=== PATIENT | male | born 1960 | race African-American/Black ===

== ENCOUNTER 2018-09-28 12:23 | Emergency (ER) | payer MEDICARE, OTHER ==
[~2018-09-28] VITALS: Ht 180.3 cm; Wt 113.4 kg
[2018-09-28] MEDS ORDERED: methylPREDNISolone SOD SUCC PF 125 MG/2 ML VIAL. IM ONE (13:00)
[2018-09-28 13:02] VITALS: BP 125/86
[2018-09-28] MEDS ORDERED: DICL50TA4 PO (13:39)
--- NOTE | 2018-09-28 13:39 | PHYS DOC ---
Past Medical History Past Medical History: Arthritis, GERD, High Cholesterol Additional Past Medical Histor: GOUT, ALLERGIES, ENLARGED PROSTATE Past Surgical History: Appendectomy Additional Past Surgical Histo: L ANKLE SX Alcohol Use: None Drug Use: None Adult General Chief Complaint Chief Complaint: LOWER EXT PAIN HPI HPI Patient is a 58 year old male with history of arthritis to bilateral knees who presents today complaining of chronic 8 out of 10 intermittent bilateral knee pain. Patient states he is supposed to have knee replacement and would like a referral to an orthopedic doctor. Patient denies any known injury. He states the pain is worse when it rains like today. Patient states he gets injection to his knees. He states they did the left knee injection a couple weeks ago but they could not do both knees. He is requesting steroid injection to the right knee. Review of Systems Review of Systems Constitutional: Denies fever or chills [] Musculoskeletal: Reports chronic bilateral knee pain Integument: Denies rash or skin lesions [] Neurologic: Denies headache, focal weakness or sensory changes [] All other systems were reviewed and found to be within normal limits, except as documented in this note. Current Medications Current Medications Current Medications Medications (Trade) Dose Ordered Sig/Luis Eduardo Start Time Stop Time Status Last Admin Dose Admin Methylprednisolone Sodium Succinate (SOLU-Medrol 125MG VIAL) 125 mg 1X ONCE 09/28/18 13:00 09/28/18 13:17 DC 09/28/18 13:23 125 MG Allergies Allergies Allergies Coded Allergies Type Severity Reaction Last Updated Verified No Known Drug Allergies 09/28/18 No Physical Exam Physical Exam Constitutional: Well developed, well nourished, no acute distress, non-toxic appearance. [] Skin: Warm, dry, no erythema, no rash. [] Back: No tenderness, no CVA tenderness. [] Extremities: Bilateral knees with no obvious deformity. Both knees are in a OTC splint. Full passive range of motion to bilateral knees. +2 bilateral pedal pulses. Sensation intact bilateral lower extremities. Neurologic: Alert and oriented X 3, normal motor function, normal sensory function, no focal deficits noted. [] Psychologic: Affect normal, judgement normal, mood normal. [] Current Patient Data Vital Signs Vital Signs Date Time Temp Pulse Resp B/P (MAP) Pulse Ox O2 Delivery O2 Flow Rate FiO2 09/28/18 13:02 98.4 89 18 125/86 (99) 96 Room Air 98.4 EKG EKG [] Radiology/Procedures Radiology/Procedures [] Course & Med Decision Making Course & Med Decision Making Pertinent Labs and Imaging studies reviewed. (See chart for details) This is a 58-year-old male patient presented to the ED today with bilateral knee pain, no known injury. See history of present illness. Patient was discharged with diclofenac. Ice/ elevation encouraged. Follow-up with primary care doctor in 1-2 weeks or the provided orthopedic doctor. Dragon Disclaimer Dragon Disclaimer This electronic medical record was generated, in whole or in part, using a voice recognition dictation system. Departure Departure Impression: Primary Impression: Chronic pain of both knees Disposition: HOME, SELF-CARE Condition: STABLE Referrals: UNKNOWN PCP NAME (PCP) FABIENNE CLEVELAND II, MD follow up in 1-2 weeks Patient Instructions: Knee Pain, [id number] Additional Instructions: You were seen for chronic knee pain. Please follow-up with the orthopedic doctor provided in 1-2 weeks. Scripts Diclofenac Sodium (DICLOFENAC SODIUM) 50 Mg Tablet.dr 1 TAB PO BID, #20 TAB 0 Refills Prov: LEANNA STEVENS APRN 09/28/18 LEANNA STEVENS APRN Sep 28, 2018 13:39
[2018-11-04] MEDS ORDERED: MELO15TA6 PO (14:27)
[2018-11-04] MEDS ORDERED: DICL100G18 TP (14:27)
== END 2018-09-28 14:00 | disposition home or self-care (01) ==
LOC: ER 12:23
DX: G89.29 Other chronic pain (principal); M25.561 Pain in right knee; M25.562 Pain in left knee; M17.0 Bilateral primary osteoarthritis of knee; K21.9 Gastro-esophageal reflux disease without esophagitis; E78.00 Pure hypercholesterolemia, unspecified; M10.9 Gout, unspecified
CPT/HCPCS: 96372; 99283; J2930

== ENCOUNTER 2018-11-03 09:44 | Inpatient (IN) | payer OTHER ==
[~2018-11-03] VITALS: Ht 180.3 cm; Wt 104.4 kg
[2018-11-03] VITALS (13 sets, daily range): BP systolic 101–125; BP diastolic 69–82
[~2018-11-03 09:44] MED LIST: DICL50TA4 PO
[2018-11-03] MEDS ORDERED: IV NORMAL SALINE 1000ML BAG 1,000 ML IV SCH (09:49)
--- NOTE | 2018-11-03 09:56 | PHYS DOC ---
Past Medical History Past Medical History: Arthritis, GERD, High Cholesterol Additional Past Medical Histor: GOUT, ALLERGIES, ENLARGED PROSTATE Past Surgical History: Appendectomy Additional Past Surgical Histo: L ANKLE SX Alcohol Use: None Drug Use: None Adult General Chief Complaint Chief Complaint: chest pain HPI HPI Patient is a 58-year-old male who presents with complaint of chest pain that started about 5:00 this morning. Patient states that it woke him from sleep. He describes pain as sharp and stabbing in nature and states the pain is worsened with movements and with deep breathing. He also admits to a cough but states cough is not been productive. Patient denies any history of blood clots. He does indicate that he has noticed some swelling in his legs however. Patient denies any nausea, vomiting or diaphoresis. He states that nothing improves the pain. He rates pain currently at an 8 out of 10. Review of Systems Review of Systems Constitutional: Denies fever or chills [] Respiratory: Complains of cough without shortness of breath [] Cardiovascular: No additional information not addressed in HPI [] GI: Denies abdominal pain, nausea, vomiting or diarrhea [] Integument: Denies rash or skin lesions [] Neurologic: Denies headache, focal weakness or sensory changes [] All other systems were reviewed and found to be within normal limits, except as documented in this note. Current Medications Current Medications Current Medications Medications (Trade) Dose Ordered Sig/Luis Eduardo Start Time Stop Time Status Last Admin Dose Admin Aspirin (Children'S Aspirin) 324 mg 1X ONCE 11/03/18 10:30 11/03/18 10:31 DC 11/03/18 10:33 324 MG Heparin Sodium (Porcine) (Heparin Sodium) 2,600 unit PRN Q6HRS PRN 11/03/18 10:45 Heparin Sodium/ Dextrose 500 ml @ 0 mls/hr CONT PRN 11/03/18 10:45 11/03/18 10:48 25.1 MLS/HR Info (CONTRAST GIVEN -- Rx MONITORING) 1 each PRN DAILY PRN 11/03/18 10:45 11/05/18 10:44 Nitroglycerin (Nitrostat) 0.4 mg PRN Q5MIN PRN 11/03/18 10:45 11/03/18 10:43 0.4 MG Sodium Chloride 1,000 ml @ 1,000 mls/hr Q1H 11/03/18 09:49 11/03/18 10:48 DC 11/03/18 10:10 1,000 MLS/HR Allergies Allergies Allergies Coded Allergies Type Severity Reaction Last Updated Verified No Known Drug Allergies 09/28/18 No Physical Exam Physical Exam Constitutional: Well developed, well nourished, no acute distress, non-toxic appearance. [] HENT: Normocephalic, atraumatic, bilateral external ears normal, oropharynx moist, no oral exudates, nose normal. [] Eyes: PERRLA, EOMI, conjunctiva normal, no discharge. [] Neck: Normal range of motion, no tenderness, supple, no stridor. [] Cardiovascular: Regular rate and rhythm. There is reproducible chest wall tenderness along the left lower sternal margin[] Lungs & Thorax: Bilateral breath sounds clear to auscultation [] Abdomen: Bowel sounds normal, soft, no tenderness. [] Skin: Warm, dry, no erythema, no rash. [] Extremities: No tenderness, no cyanosis, no clubbing, ROM intact, no edema. [] Neurologic: Alert and oriented X 3, no focal deficits noted. [] Current Patient Data Vital Signs Vital Signs Date Time Temp Pulse Resp B/P (MAP) Pulse Ox O2 Delivery O2 Flow Rate FiO2 11/03/18 10:43 89 137/96 11/03/18 09:44 98.3 18 97 Room Air 98.3 Lab Values Laboratory Tests Test 11/03/18 09:51 White Blood Count 3.8 x10^3/uL (4.0-11.0) L Red Blood Count 5.02 x10^6/uL (4.30-5.70) Hemoglobin 16.0 g/dL (13.0-17.5) Hematocrit 48.3 % (39.0-53.0) Mean Corpuscular Volume 96 fL (79-100) Mean Corpuscular Hemoglobin 32 pg (25-35) Mean Corpuscular Hemoglobin Concent 33 g/dL (31-37) Red Cell Distribution Width 14.1 % (11.5-14.5) Platelet Count 163 x10^3/uL (140-400) Neutrophils (%) (Auto) 51 % (31-73) Lymphocytes (%) (Auto) 35 % (24-48) Monocytes (%) (Auto) 11 % (0-9) H Eosinophils (%) (Auto) 2 % (0-3) Basophils (%) (Auto) 1 % (0-3) Neutrophils # (Auto) 1.9 x10^3uL (1.8-7.7) Lymphocytes # (Auto) 1.3 x10^3/uL (1.0-4.8) Monocytes # (Auto) 0.4 x10^3/uL (0.0-1.1) Eosinophils # (Auto) 0.1 x10^3/uL (0.0-0.7) Basophils # (Auto) 0.0 x10^3/uL (0.0-0.2) Sodium Level 140 mmol/L (136-145) Potassium Level 4.0 mmol/L (3.5-5.1) Chloride Level 102 mmol/L (98-107) Carbon Dioxide Level 23 mmol/L (21-32) Anion Gap 15 (6-14) H Blood Urea Nitrogen 6 mg/dL (8-26) L Creatinine 1.1 mg/dL (0.7-1.3) Estimated GFR (Cockcroft-Gault) 82.9 BUN/Creatinine Ratio 5 (6-20) L Glucose Level 86 mg/dL (70-99) Calcium Level 9.7 mg/dL (8.5-10.1) Magnesium Level 2.3 mg/dL (1.8-2.4) Total Bilirubin 1.6 mg/dL (0.2-1.0) H Aspartate Amino Transferase (AST) 105 U/L (15-37) H Alanine Aminotransferase (ALT) 102 U/L (16-63) H Alkaline Phosphatase 113 U/L (46-116) Troponin I Quantitative 0.389 ng/mL (0.000-0.055) IK-Ecu-H-Type Natriuretic Peptide 78 pg/mL (0-124) Total Protein 7.7 g/dL (6.4-8.2) Albumin 4.1 g/dL (3.4-5.0) Albumin/Globulin Ratio 1.1 (1.0-1.7) Lipase 149 U/L (73-393) Ethyl Alcohol Level < 10 mg/dL (0-10) Laboratory Tests 11/03/18 09:51 Laboratory Tests 11/03/18 09:51 EKG EKG [] Interpretation Time: EKG demonstrates normal sinus rhythm with rate of 99. Radiology/Procedures Radiology/Procedures [] Impressions: EXAM: CHEST 1 VIEW History: Chest pain COMPARISON: 04/13/2010 FINDINGS: The cardiac silhouette is unremarkable. The lungs are clear bilaterally. The costophrenic sulci are clear and well demarcated. IMPRESSION: No radiographic evidence of an acute cardiopulmonary process. Electronically signed by: David Ron MD (11/03/2018 10:10 AM) [id number] Course & Med Decision Making Course & Med Decision Making Pertinent Labs and Imaging studies reviewed. (See chart for details) [] Dragon Disclaimer Dragon Disclaimer This electronic medical record was generated, in whole or in part, using a voice recognition dictation system. Departure Departure Impression: Primary Impression: NSTEMI (non-ST elevated myocardial infarction) Disposition: 09 ADMITTED INPATIENT Admitting Physician: Other (Dr. [place]) Condition: IMPROVED Referrals: UNKNOWN PCP NAME (PCP) RENA SILVA Jr. DO November 03, 2018 09:56
[2018-11-03 10:02] LABS: BASO % 1 % (0-3); EOS # 0.1 x10^3/uL (0.0-0.7); EOS % 2 % (0-3); HEMATOCRIT 48.3 % (39.0-53.0); LYMPH # 1.3 x10^3/uL (1.0-4.8); LYMPH % 35 % (24-48); MEAN CORPUSCULAR HEMOGLOBIN 32 pg (25-35); MEAN CORPUSCULAR HGB CONC 33 g/dL (31-37); MEAN CORPUSCULAR VOLUME 96 fL (79-100); MONO # 0.4 x10^3/uL (0.0-1.1); MONO % 11 % (0-9); NEUT # 1.9 x10^3uL (1.8-7.7); NEUT % 51 % (31-73); PLATELET COUNT 163 x10^3/uL (140-400); RED BLOOD COUNT 5.02 x10^6/uL (4.30-5.70); RED CELL DISTRIBUTION WIDTH 14.1 % (11.5-14.5); WHITE BLOOD COUNT 3.8 x10^3/uL (4.0-11.0)
--- NOTE | 2018-11-03 10:13 | RAD ---
EXAM: CHEST 1 VIEW History: Chest pain COMPARISON: 04/13/2010 FINDINGS: The cardiac silhouette is unremarkable. The lungs are clear bilaterally. The costophrenic sulci are clear and well demarcated. IMPRESSION: No radiographic evidence of an acute cardiopulmonary process. Electronically signed by: David Ron MD (11/03/2018 10:10 AM) [id number]
[2018-11-03 10:14] LABS: CALCIUM 9.7 mg/dL (8.5-10.1); CREATININE 1.1 mg/dL (0.7-1.3); GFR 82.9
--- NOTE | 2018-11-03 10:21 | EKG ---
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
[2018-11-03 10:25] LABS: ALBUMIN 4.1 g/dL (3.4-5.0); ALBUMIN/GLOBULIN RATIO 1.1 (1.0-1.7); MAGNESIUM 2.3 mg/dL (1.8-2.4); TOTAL BILIRUBIN 1.6 mg/dL (0.2-1.0); TOTAL PROTEIN 7.7 g/dL (6.4-8.2)
[2018-11-03] MEDS ORDERED: ASPIRIN CHEWABLE 81 MG TABLET. PO ONE (10:30)
[2018-11-03] MEDS: NITROGLYCERIN SUBLINGUAL 0.4 MG BOTTLE OF 25. SL PRN ×2 (10:43→11:01)
[2018-11-03] MEDS ORDERED: HEPARIN 25,000UTS/500ML PREMIX 500 ML IV PRN (10:45)
[2018-11-03] MEDS ORDERED: CONTRAST GIVEN. MC PRN ×2 (10:45→12:30)
[2018-11-03] MEDS ORDERED: HEPARIN for IV BOLUS 10,000 UNIT/10 ML VIAL. IV ONE (10:45)
[2018-11-03] MEDS ORDERED: HEPARIN for IV BOLUS 10,000 UNIT/10 ML VIAL. IV PRN (10:45)
[2018-11-03] MEDS ORDERED: ANTI-COAG MONITOR BY PHARMACY. MC PRN (11:00)
[2018-11-03] MEDS ORDERED: NITROGLYCERIN SUBLINGUAL 0.4 MG BOTTLE OF 25. SL PRN (11:00)
[2018-11-03] MEDS ORDERED: ONDANSETRON PF 4 MG/2 ML VIAL. IV ONE (11:00)
[2018-11-03] MEDS ORDERED: ONDANSETRON PF 4 MG/2 ML VIAL. IV PRN (11:00)
[2018-11-03] MEDS ORDERED: MORPHINE SULFATE 2 MG/ML VIAL. IV PRN (11:00)
--- NOTE | 2018-11-03 11:06 | PDOC2 ---
SHARAN KUHN RADIAL ROUTER OPERATOR 11/03/18 1106: CARDIAC CONSULT DATE OF CONSULT Date of Consult DATE: 11/03/18 TIME: 11:03 REASON FOR CONSULT Reason for Consult: NSTEMI REFERRING PHYSICIAN Referring Physician: Ricky SOURCE Source: Chart review, Patient HISTORY OF PRESENT ILLNESS HISTORY OF PRESENT ILLNESS This is a 58 yo male admitted for complains of chest pain. Reports that he woke this morning having sharp left chest pain radiating to left shoulder. This was associated with SOA and nausea. Currently he is restless and tachypneic and appears to be in panic, nauseated and diaphoretic. He received 2 NTG and his BP dropped to 70/30s IV bolus given and his BP is better and he is less restless. No prior hx of CAD or arrhythmias but + for past CVA, HLP, HTN and heavy alcoholism with last cocaine use 2 weeks ago as verbalized. No prior syncope and limited details due to his anxiety and restlessness. PAST MEDICAL HISTORY Cardiovascular: HTN, Hyperlipidemia CENTRAL NERVOUS SYSTEM: CVA GI: GERD Psych: Other (heavy alcoholism) Musculoskeletal: Osteoarthritis Rheumatologic: Gout Renal/: Benign prostatic enlarg. PAST SURGICAL HISTORY Past Surgical History: Appendectomy, Other (left ankle surgery) FAMILY HISTORY Family History: Family History Unknown SOCIAL HISTORY Smoke: No ALCOHOL: heavy (gin and beer) Drugs: Cocaine Lives: Alone (homeless nursing home) CURRENT MEDICATIONS CURRENT MEDICATIONS Current Medications Medications (Trade) Dose Ordered Sig/Luis Eduardo Route PRN Reason Start Time Stop Time Status Last Admin Dose Admin Sodium Chloride 1,000 ml @ 1,000 mls/hr Q1H IV 11/03/18 09:49 11/03/18 10:48 DC 11/03/18 10:10 Aspirin (Children'S Aspirin) 324 mg 1X ONCE PO 11/03/18 10:30 11/03/18 10:31 DC 11/03/18 10:33 Nitroglycerin (Nitrostat) 0.4 mg PRN Q5MIN PRN SL CHEST PAIN 11/03/18 10:45 11/03/18 11:01 Heparin Sodium (Porcine) (Heparin Sodium) 4,000 unit 1X ONCE IV 11/03/18 10:45 11/03/18 10:46 DC 11/03/18 10:44 Heparin Sodium/ Dextrose 500 ml @ 0 mls/hr CONT PRN IV SEE I/O RECORD 11/03/18 10:45 5/3/19 10:48 Ondansetron HCl (Zofran) 4 mg 1X ONCE IV 11/03/18 11:00 11/03/18 11:01 DC 11/03/18 10:58 ALLERGIES ALLERGIES: Coded Allergies: No Known Drug Allergies (Unverified , 09/28/18) ROS Review of System limited due to restlessness PHYSICAL EXAM General: Alert, Oriented X3, Cooperative, moderate distress HEENT: Atraumatic, Mucous membr. moist/pink Lungs: Clear to auscultation, Other (hyperventilating) Heart: Regular rate (SR), Other (2/6 systolic murmur to LLS border; S4) Abdomen: Soft, No tenderness Extremities: No cyanosis, No edema Skin: No breakdown, No significant lesion Neuro: Normal speech, Sensation intact Psych/Mental Status: Mental status NL, Other (anxious) MUSCULOSKELETAL: Osteoarthritic changes both hands VITALS VITALS Vital Signs Date Time Temp Pulse Resp B/P (MAP) Pulse Ox O2 Delivery O2 Flow Rate FiO2 11/03/18 11:01 94 127/74 11/03/18 10:57 16 97 Room Air 11/03/18 09:44 98.3 98.3 LABS Lab: Laboratory Tests Test 11/03/18 09:51 White Blood Count 3.8 x10^3/uL (4.0-11.0) Red Blood Count 5.02 x10^6/uL (4.30-5.70) Hemoglobin 16.0 g/dL (13.0-17.5) Hematocrit 48.3 % (39.0-53.0) Mean Corpuscular Volume 96 fL (79-100) Mean Corpuscular Hemoglobin 32 pg (25-35) Mean Corpuscular Hemoglobin Concent 33 g/dL (31-37) Red Cell Distribution Width 14.1 % (11.5-14.5) Platelet Count 163 x10^3/uL (140-400) Neutrophils (%) (Auto) 51 % (31-73) Lymphocytes (%) (Auto) 35 % (24-48) Monocytes (%) (Auto) 11 % (0-9) Eosinophils (%) (Auto) 2 % (0-3) Basophils (%) (Auto) 1 % (0-3) Neutrophils # (Auto) 1.9 x10^3uL (1.8-7.7) Lymphocytes # (Auto) 1.3 x10^3/uL (1.0-4.8) Monocytes # (Auto) 0.4 x10^3/uL (0.0-1.1) Eosinophils # (Auto) 0.1 x10^3/uL (0.0-0.7) Basophils # (Auto) 0.0 x10^3/uL (0.0-0.2) Sodium Level 140 mmol/L (136-145) Potassium Level 4.0 mmol/L (3.5-5.1) Chloride Level 102 mmol/L (98-107) Carbon Dioxide Level 23 mmol/L (21-32) Anion Gap 15 (6-14) Blood Urea Nitrogen 6 mg/dL (8-26) Creatinine 1.1 mg/dL (0.7-1.3) Estimated GFR (Cockcroft-Gault) 82.9 BUN/Creatinine Ratio 5 (6-20) Glucose Level 86 mg/dL (70-99) Calcium Level 9.7 mg/dL (8.5-10.1) Magnesium Level 2.3 mg/dL (1.8-2.4) Total Bilirubin 1.6 mg/dL (0.2-1.0) Aspartate Amino Transf (AST/SGOT) 105 U/L (15-37) Alanine Aminotransferase (ALT/SGPT) 102 U/L (16-63) Alkaline Phosphatase 113 U/L (46-116) Troponin I Quantitative 0.389 ng/mL (0.000-0.055) YA-Dnh-H-Type Natriuretic Peptide 78 pg/mL (0-124) Total Protein 7.7 g/dL (6.4-8.2) Albumin 4.1 g/dL (3.4-5.0) Albumin/Globulin Ratio 1.1 (1.0-1.7) Lipase 149 U/L (73-393) Ethyl Alcohol Level < 10 mg/dL (0-10) ASSESSMENT/PLAN ASSESSMENT/PLAN 1. NSTEMI: Trop at 0.3 with CP. EKG SR with LAFB 2. HLP 3. Hx of CVA 4. Mild transaminitis with known heavy alcoholism 5. Hypotension: likely from 2 NTG, BP better after IVF bolus Recommendations 1. Heparin drip, ASA 2. LHC, risks and benefits discussed and agreeable to proceed. 3. TTE, lipids, TSH 4. ETOH withdrawal protocol per PCP GLENYS SAMS MD 11/03/18 1245: CARDIAC CONSULT ASSESSMENT/PLAN ASSESSMENT/PLAN Patient seen and examined. Agree with SENIOR ANIMATOR's assessment and plan. CP with mixed features. Troponin level slightly elevated - most probably demand ischemia but with his risk factors, we will proceed with cardiac cath for definitive evaluation Risks and benefits explained and he is agreeable Monitor for alcohol withdrawal Thank you for your consultation SHARAN KUHN APRN November 03, 2018 11:06 GLENYS SAMS MD November 03, 2018 12:45
--- NOTE | 2018-11-03 11:32 | PDOC1 ---
History and Physical Date of Admission Date of Admission DATE: 11/03/18 TIME: 11:12 Identification/Chief Complaint Chief Complaint Chest pain Source Source: Chart review, Patient History of Present Illness History of Present Illness 58-year-old male w/ PMHx prior CVA, GERD, ETOH abuse who presents with complaint of chest pain that started between 3-4AM this morning. Patient states that it woke him from sleep. He describes pain as sharp and stabbing in nature and states the pain is worsened with movements and with deep breathing. He also admits to a cough but states cough is not been productive. Patient denies any hi story of blood clots, but does endorse swelling in his legs however. Patient denies any nausea, vomiting or diaphoresis. He states that nothing improves the pain. He rates pain currently at an 8 out of 10. Given ASA and NTG in ED. AST 105, ALT 102, Bili 1.6. Troponin 0.3. CXR clear. EKG with NSR and LAFB. On further review notes he has had CP and nausea off and on for the past 2 w eeks, but it became severe last night. He vomits during my examination and notes he does have a history of drinking and prior CVA, when asked about further medical history he advises me to "call [facility]", notes he had CVA there 5-6 years ago. Past Medical History Cardiovascular: HTN Pulmonary: No pertinent hx GI: GERD Hepatobiliary: No pertinent hx Psych: No pertinent hx Rheumatologic: No pertinent hx Infectious disease: No pertinent hx ENT: No pertinent hx Renal/: No pertinent hx Endocrine: No pertinent hx Dermatology: No pertinent hx Past Surgical History Past Surgical History: No pertinent history Family History Family History: Alcohol Abuse, Heart Disease, High Cholestrol Social History Smoke: <1 pack per day ALCOHOL: heavy Drugs: None Current Problem List Problem List Problems Medical Problems: (1) NSTEMI (non-ST elevated myocardial infarction) Status: Acute Current Medications Current Medications Current Medications Sodium Chloride 1,000 ml @ 1,000 mls/hr Q1H IV Last administered on 11/03/18at 10:10; Start 11/03/18 at 09:49; Stop 11/03/18 at 10:48; Status DC Aspirin (Children'S Aspirin) 324 mg 1X ONCE PO Last administered on 11/03/18at 10:33; Start 11/03/18 at 10:30; Stop 11/03/18 at 10:31; Status DC Nitroglycerin (Nitrostat) 0.4 mg PRN Q5MIN PRN SL CHEST PAIN Last administered on 11/03/18at 11:01; Start 11/03/18 at 10:45 Heparin Sodium (Porcine) (Heparin Sodium) 4,000 unit 1X ONCE IV Last administered on 11/03/18at 10:44; Start 11/03/18 at 10:45; Stop 11/03/18 at 10:46; Status DC Heparin Sodium/ Dextrose 500 ml @ 0 mls/hr CONT PRN IV SEE I/O RECORD Last administered on 11/03/18at 10:48; Start 11/03/18 at 10:45 Heparin Sodium (Porcine) (Heparin Sodium) 2,600 unit PRN Q6HRS PRN IV FOR UFH LEVEL LESS THAN 0.2; Start 11/03/18 at 10:45 Info (CONTRAST GIVEN -- Rx MONITORING) 1 each PRN DAILY PRN MC SEE COMMENTS; Start 11/03/18 at 10:45; Stop 11/05/18 at 10:44 Ondansetron HCl (Zofran) 4 mg PRN Q8HRS PRN IV NAUSEA/VOMITING; Start 11/03/18 at 11:00; Stop 11/04/18 at 10:59 Morphine Sulfate (Morphine Sulfate) 2 mg PRN Q2HR PRN IV PAIN; Start 11/03/18 at 11:00; Stop 11/04/18 at 10:59 Sodium Chloride 1,000 ml @ 100 mls/hr Q10H IV ; Start 11/03/18 at 11:00; Stop 11/04/18 at 10:59 Nitroglycerin (Nitrostat) 0.4 mg PRN Q5MIN PRN SL CHEST PAIN; Start 11/03/18 at 11:00; Stop 11/04/18 at 10:59; Status UNV Info (Anti-Coagulation Monitoring By Pharmacy) 1 each PRN DAILY PRN MC SEE COMMENTS; Start 11/03/18 at 11:00 Ondansetron HCl (Zofran) 4 mg 1X ONCE IV Last administered on 11/03/18at 10:58; Start 11/03/18 at 11:00; Stop 11/03/18 at 11:01; Status DC Active Scripts Active Diclofenac Sodium 50 Mg Tablet. 1 Tab PO BID Allergies Allergies: Coded Allergies: No Known Drug Allergies (Unverified , 09/28/18) ROS General: YES: Fatigue, Malaise, Appetite; No: Chills, Night Sweats, Other PSYCHOLOGICAL ROS: YES: Anxiety; No: Behavioral Disorder, Concentration difficultie, Decreased libido, Depression, Disorientation, Hallucinations, Hostility, Irritablity, Memory difficulties, Mood Swings, Obsessive thoughts, Physical abuse, Sexual abuse, Sleep disturbances, Suicidal ideation, Other Eyes: No Blurry vision, No Decreased vision, No Double vision, No Dry eyes, No Excessive tearing, No Eye Pain, No Itchy Eyes, No Loss of vision, No Photophobia, No Scotomata, No Uses contacts, No Uses glasses, No Other HEENT: No: Heacaches, Visual Changes, Hearing change, Nasal congestion, Nasal discharge, Oral lesions, Sinus pain, Sore Throat, Epistaxis, Sneezing, Snoring, Tinnitus, Vertigo, Vocal changes, Other ALLERGY AND IMMUNOLOGY: No: Hives, Insect Bite Sensitivity, Itchy/Watery Eyes, Nasal Congestion, Post Nasal Drip, Seasonal Allergies, Other Hematological and Lymphatic: No: Bleeding Problems, Blood Clots, Blood Transfusions, Brusing, Night Sweats, Pallor, Swollen Lymph Nodes, Other ENDOCRINE: No: Breast Changes, Galactorrhea, Hair Pattern Changes, Hot Flashes, Malaise/lethargy, Mood Swings, Palpitations, Polydipsia/polyuria, Skin Changes, Temperature Intolerance, Unexpected Weight Changes, Other Breast: No New/Changing Breast Lumps, No Nipple changes, No Nipple discharge, No Other Respiratory: YES: Cough, Shortness of breath; No: Hemoptysis, Orthopnea, Pleuritic Pain, SOB with excertion, Sputum Changes, Stridor, Tachypnea, Wheezing, Other Cardiovascular: yes Chest Pain; No Palpitations, No Orthopnea, No Paroxysmal Noc. Dyspnea, No Edema, No Lt Headedness, No Other Gastrointestinal: Yes Nausea, Yes Vomiting; No Abdominal Pain, No Diarrhea, No Constipation, No Melena, No Hematochezia, No Other Genitourinary: No Dysuria, No Frequency, No Incontinence, No Hematuria, No Retention, No Discharge, No Urgency, No Pain, No Flank Pain, No Other, No , No , No , No , No , No , No Musculoskeletal: No Gait Disturbance, No Joint Pain, No Joint Stiffness, No Joint Swelling, No Muscle Pain, No Muscular Weakness, No Pain In:, No Swelling In:, No Other Neurological: No Behavorial Changes, No Bowel/Bladder ControlChng, No Confusion, No Dizziness, No Gait Disturbance, No Headaches, No Impaired Coord/balance, No Memory Loss, No Numbness/Tingling, No Seizures, No Speech Problems, No Tremors, No Visual Changes, No Weakness, No Other Skin: No Dry Skin, No Eczema, No Hair Changes, No Lumps, No Mole Changes, No Mottling, No Nail Changes, No Pruritus, No Rash, No Skin Lesion Changes, No Other, No Acne Physical Exam General: Alert, Oriented X3, Cooperative, No acute distress HEENT: Atraumatic, PERRLA, EOMI, Mucous membr. moist/pink Lungs: Clear to auscultation, Normal air movement Heart: S1S2, RRR Abdomen: Normal bowel sounds, Soft, No tenderness, No hepatosplenomegaly, No masses Rectal Exam: not examined Extremities: No clubbing, No cyanosis, No edema, Normal pulses, No ten derness/swelling Skin: No rashes, No breakdown, No significant lesion Neuro: Normal gait, Normal speech, Strength at 5/5 X4 ext, Normal tone, Sensation intact, Cranial nerves 3-12 NL, Reflexes 2+ Psych/Mental Status: Mental status NL, Mood NL Vitals Vitals Vital Signs Date Time Temp Pulse Resp B/P (MAP) Pulse Ox O2 Delivery O2 Flow Rate FiO2 11/03/18 11:07 99 16 70/40 (50) 97 Room Air 11/03/18 09:44 98.3 98.3 Labs Labs Laboratory Tests Test 11/03/18 09:51 White Blood Count 3.8 x10^3/uL (4.0-11.0) Red Blood Count 5.02 x10^6/uL (4.30-5.70) Hemoglobin 16.0 g/dL (13.0-17.5) Hematocrit 48.3 % (39.0-53.0) Mean Corpuscular Volume 96 fL (79-100) Mean Corpuscular Hemoglobin 32 pg (25-35) Mean Corpuscular Hemoglobin Concent 33 g/dL (31-37) Red Cell Distribution Width 14.1 % (11.5-14.5) Platelet Count 163 x10^3/uL (140-400) Neutrophils (%) (Auto) 51 % (31-73) Lymphocytes (%) (Auto) 35 % (24-48) Monocytes (%) (Auto) 11 % (0-9) Eosinophils (%) (Auto) 2 % (0-3) Basophils (%) (Auto) 1 % (0-3) Neutrophils # (Auto) 1.9 x10^3uL (1.8-7.7) Lymphocytes # (Auto) 1.3 x10^3/uL (1.0-4.8) Monocytes # (Auto) 0.4 x10^3/uL (0.0-1.1) Eosinophils # (Auto) 0.1 x10^3/uL (0.0-0.7) Basophils # (Auto) 0.0 x10^3/uL (0.0-0.2) Sodium Level 140 mmol/L (136-145) Potassium Level 4.0 mmol/L (3.5-5.1) Chloride Level 102 mmol/L (98-107) Carbon Dioxide Level 23 mmol/L (21-32) Anion Gap 15 (6-14) Blood Urea Nitrogen 6 mg/dL (8-26) Creatinine 1.1 mg/dL (0.7-1.3) Estimated GFR (Cockcroft-Gault) 82.9 BUN/Creatinine Ratio 5 (6-20) Glucose Level 86 mg/dL (70-99) Calcium Level 9.7 mg/dL (8.5-10.1) Magnesium Level 2.3 mg/dL (1.8-2.4) Total Bilirubin 1.6 mg/dL (0.2-1.0) Aspartate Amino Transf (AST/SGOT) 105 U/L (15-37) Alanine Aminotransferase (ALT/SGPT) 102 U/L (16-63) Alkaline Phosphatase 113 U/L (46-116) Troponin I Quantitative 0.389 ng/mL (0.000-0.055) LR-Otx-Q-Type Natriuretic Peptide 78 pg/mL (0-124) Total Protein 7.7 g/dL (6.4-8.2) Albumin 4.1 g/dL (3.4-5.0) Albumin/Globulin Ratio 1.1 (1.0-1.7) Lipase 149 U/L (73-393) Ethyl Alcohol Level < 10 mg/dL (0-10) Laboratory Tests Test 11/03/18 09:51 White Blood Count 3.8 x10^3/uL (4.0-11.0) Red Blood Count 5.02 x10^6/uL (4.30-5.70) Hemoglobin 16.0 g/dL (13.0-17.5) Hematocrit 48.3 % (39.0-53.0) Mean Corpuscular Volume 96 fL (79-100) Mean Corpuscular Hemoglobin 32 pg (25-35) Mean Corpuscular Hemoglobin Concent 33 g/dL (31-37) Red Cell Distribution Width 14.1 % (11.5-14.5) Platelet Count 163 x10^3/uL (140-400) Neutrophils (%) (Auto) 51 % (31-73) Lymphocytes (%) (Auto) 35 % (24-48) Monocytes (%) (Auto) 11 % (0-9) Eosinophils (%) (Auto) 2 % (0-3) Basophils (%) (Auto) 1 % (0-3) Neutrophils # (Auto) 1.9 x10^3uL (1.8-7.7) Lymphocytes # (Auto) 1.3 x10^3/uL (1.0-4.8) Monocytes # (Auto) 0.4 x10^3/uL (0.0-1.1) Eosinophils # (Auto) 0.1 x10^3/uL (0.0-0.7) Basophils # (Auto) 0.0 x10^3/uL (0.0-0.2) Sodium Level 140 mmol/L (136-145) Potassium Level 4.0 mmol/L (3.5-5.1) Chloride Level 102 mmol/L (98-107) Carbon Dioxide Level 23 mmol/L (21-32) Anion Gap 15 (6-14) Blood Urea Nitrogen 6 mg/dL (8-26) Creatinine 1.1 mg/dL (0.7-1.3) Estimated GFR (Cockcroft-Gault) 82.9 BUN/Creatinine Ratio 5 (6-20) Glucose Level 86 mg/dL (70-99) Calcium Level 9.7 mg/dL (8.5-10.1) Magnesium Level 2.3 mg/dL (1.8-2.4) Total Bilirubin 1.6 mg/dL (0.2-1.0) Aspartate Amino Transf (AST/SGOT) 105 U/L (15-37) Alanine Aminotransferase (ALT/SGPT) 102 U/L (16-63) Alkaline Phosphatase 113 U/L (46-116) Troponin I Quantitative 0.389 ng/mL (0.000-0.055) DR-Hus-M-Type Natriuretic Peptide 78 pg/mL (0-124) Total Protein 7.7 g/dL (6.4-8.2) Albumin 4.1 g/dL (3.4-5.0) Albumin/Globulin Ratio 1.1 (1.0-1.7) Lipase 149 U/L (73-393) Ethyl Alcohol Level < 10 mg/dL (0-10) VTE Prophylaxis Ordered VTE Prophylaxis Devices: No VTE Pharmacological Prophylaxi: Yes Assessment/Plan Assessment/Plan A/P: NSTEMI - Trop at 0.3 with Chest pain. EKG sinus with LAFB. Start heparin GTT, ASA, NTG, cardiology consultation. with prior CVA, age he likely needs cardiac catheterization, will defer to cardiology Leukopenia - patient if , can be normal variant Transaminitis - AST and ALT as well as bilirubin elevation, likely ETOH, though his level is 0, he has not drank in the past day. Will monitor trend LE swelling - negative BNP, likely related to low albumin from ETOH use Prior CVA - should be on high intensity statin and ASA. Will order [facility] records GERD - ppi ETOH abuse - will place on CARLI FEN - NPO pending cardiac evaluation PPX - heparin GTT FULL CODE Inpatient CVC for NSTEMI, may be going to rn cardiac cath, needs at least [address] on KATY BAEZ MD November 03, 2018 11:32
[2018-11-03] MEDS ORDERED: IODIXANOL 320 MG/ML 100 ML VIAL. ONE (11:48)
[2018-11-03] MEDS ORDERED: LIDOCAINE 1% PF 2 ML VIAL. ONE (11:48)
[2018-11-03] MEDS: IV NORMAL SALINE 1000ML BAG 1,000 ML IV SCH ×2 (11:51→20:15)
[2018-11-03] MEDS ORDERED: fentaNYL PF VIAL 100 MCG/2 ML VIAL ONE (11:52)
[2018-11-03] MEDS ORDERED: HEPARIN for IV BOLUS 10,000 UNIT/10 ML VIAL. ONE (11:52)
[2018-11-03] MEDS ORDERED: MIDAZOLAM HCL/PF 2 MG/2 ML VIAL. ONE (11:52)
[2018-11-03] MEDS ORDERED: NITROGLYCERIN 200 MCG/2 ML SYRINGE FOR CATH/VASC LAB. ONE (11:53)
[2018-11-03] MEDS ORDERED: VERAPAMIL 5 MG/2 ML VIAL. ONE (11:53)
[2018-11-03] MEDS ORDERED: IV NORMAL SALINE 1000ML BAG 1,000 ML IV ONE (12:00)
[2018-11-03 12:03] LABS: CHOLESTEROL/HDL RATIO 2.1
--- NOTE | 2018-11-03 12:22 | CARD ---
MR#: [id number] Date of Study: 11/03/2018 Ordering Physician: RENA SILVA, Referring Physician: KATY WATTS Tech: Regina Wills, [facility] APPROVED REPORT EXAM: Two-dimensional and M-mode echocardiogram with Doppler and color Doppler. Other Information Quality : Technically LimitedHR: 95bpm Rhythm : NSRTechnically limited study due to pt movement. INDICATION Chest Pain 2D DIMENSIONS RVDd2.9 (2.9-3.5cm)Left Atrium(2D)3.1 (1.6-4.0cm) IVSd1.1 (0.7-1.1cm)Aortic Root(2D)3.3 (2.0-3.7cm) LVDd4.7 (3.9-5.9cm)LVOT Diameter2.1 (1.8-2.4cm) PWd1.0 (0.7-1.1cm)LVDs3.8 (2.5-4.0cm) FS (%) 18.8 %SV39.3 ml Aortic Valve AoV Peak Marcelino.217.4cm/sAoV VTI34.6cm AO Peak GR.18.9mmHgLVOT VTI 21.09cm AO Mean GR.9mmHgAVA (VMAX)2.20cm2 AMY (VTI)2.20cm2 Mitral Valve MV E Sgmwskef57.8cm/sMV E Peak Gr.4mmHg MV DECEL [id number] A Cparmoqv222.4cm/s MV E Mean Gr.2mmHgE/A Ratio0.7 MV A [id number] LEFT VENTRICLE The left ventricle is normal size. There is normal left ventricular wall thickness. The left ventricu lar systolic function is normal and the ejection fraction is within normal range. The ejection fracti on is 55-60%. There is normal LV segmental wall motion. Transmitral Doppler flow pattern is abnormal. RIGHT VENTRICLE The right ventricle is normal size. There is normal right ventricular wall thickness. The right ventr icular systolic function is normal. ATRIA The left atrium size is normal. The right atrium size is normal. The interatrial septum is intact wit h no evidence for an atrial septal defect or patent foramen ovale as noted on 2-D or Doppler imaging. AORTIC VALVE The aortic valve is not well visualized. The aortic valve is at least mildly calcified. Doppler and C olor Flow revealed no significant aortic regurgitation. There is no significant aortic valvular steno sis. MITRAL VALVE The mitral valve is not well visualized. There is no evidence of mitral valve prolapse. There is no m itral valve stenosis. Doppler and Color Flow revealed trace mitral valve regurgitation. TRICUSPID VALVE The tricuspid valve is not well visualized. Doppler and Color Flow revealed no tricuspid valve regurg itation noted. There is no tricuspid valve prolapse or vegetation. There is no tricuspid valve stenos is. PULMONIC VALVE The pulmonic valve is not well visualized. GREAT VESSELS The aortic root is normal in size. The ascending aorta is normal in size. The IVC was not visualized. PERICARDIAL EFFUSION There is no evidence of significant pericardial effusion. Critical Notification Critical Value: No <Conclusion> The left ventricle is normal size. The left ventricular systolic function is normal and the ejection fraction is within normal range. The ejection fraction is 55-60%. There is no significant aortic valvular stenosis. Doppler and Color Flow revealed no significant aortic regurgitation. Doppler and Color Flow revealed trace mitral valve regurgitation. Doppler and Color Flow revealed no tricuspid valve regurgitation noted. Signed by : Sukh Galvin MD Electronically Approved : 11/03/2018 12:22:04
[2018-11-03] MEDS ORDERED: HEPARIN for IV BOLUS 10,000 UNIT/10 ML VIAL. IART ONE (12:30)
[2018-11-03] MEDS ORDERED: LIDOCAINE 1% PF 2 ML VIAL. INJ ONE (12:30)
[2018-11-03] MEDS ORDERED: fentaNYL PF VIAL 100 MCG/2 ML VIAL IV ONE (12:30)
[2018-11-03] MEDS ORDERED: VERAPAMIL 5 MG/2 ML VIAL. IART ONE (12:30)
[2018-11-03] MEDS ORDERED: MIDAZOLAM HCL/PF 2 MG/2 ML VIAL. IV ONE (12:30)
[2018-11-03] MEDS ORDERED: NITROGLYCERIN 200 MCG/2 ML SYRINGE FOR CATH/VASC LAB. IART ONE (12:30)
[2018-11-03] MEDS ORDERED: IODIXANOL 320 MG/ML 100 ML VIAL. IART ONE (12:30)
--- NOTE | 2018-11-03 12:42 | PDOC ---
MODERATE SEDATION ASSESSMENT RISKS/ALTERNATIVES Risks/Alternatives Risks and alternatives of this type of sedation and procedure discussed with: RISK/ALTERNATIVES: Patient H & P ON CHART H & P H & P on chart and reviewed for co-morbid conditions and appropriate labs. H&P ON CHART: Yes STATUS PREG STATUS ASSESSED: N/A MEDS/ALLERGIES REVIEWED Meds/Allergies Reviewed Medications and Allergies including time and route of recently administered narcotics and sedatives. MEDS/ALLERGIES REVIEWED: Yes ASA RATING ASA RATING: II AIRWAY ASSESSMENT Airway Assessment Airway patency, oral function limitations, presence of caps, crowns, dentures, partials, and ability to extend neck assessed. AIRWAY ASSESSMENT: Yes MALLAMPATI SCORE MALLAMPATI SCORE: II PRE-SEDATION ASSESSMENT PRE-SEDATION ASSESSMENT: Yes GLENYS SAMS MD November 03, 2018 12:42
--- NOTE | 2018-11-03 13:10 | CARD ---
MR#: [id number] Date of Study: 11/03/2018 Ordering Physician: SHARAN KUHN, Referring Physician: KATY WATTS, Tech: SHIREEN GOMEZ RTR APPROVED REPORT Technologist: SHIREEN GOMEZ RTR Nurse: Aparna Briggs R.N. Procedure(s) performed: Left heart catheterization, selective coronary angiography and left ventricul ography via right transradial approach Moderate sedation time: 18 mins Fluoro time:2.2 Dose:42.14 GYCM2 Contrast:91 INDICATION The indication(s) include : non-STEMI . CS Clinical Frailty Scale [facility] Clinical Frailty Scale: Mildly Frail Heart Failure Heart Failure: No PROCEDURE NARRATIVE After explaining the risks, benefits and alternative options, informed consent was obtained from ned ent. Patient was brought to the cardiac [facility] and right wrist was prepped and draped in the usual fashion after confirming a positive modified Kashif's test. Arterial access was obtained in the [facility] t radial artery and a 6 Palauan sheath was inserted. 6 Palauan Zackary catheter was used to perform alexandra ective angiography of the left and right coronary arteries. The same catheter was used to perform lef t ventriculography. Patient tolerated the procedure well. Hemostasis was achieved using TR band. T here were no immediate complications. The following findings were noted. FINDINGS 1. Hemodynamics: Left ventricular end-diastolic pressure of 5 mmHg. No pullback gradient across the aortic valve. 2. Left ventriculography: Normal left ventricle systolic function with ejection fraction estimated at 60%. No significant mitral regurgitation seen. 3. Coronary angiography: a. The left main coronary artery arose from the left sinus of Valsalva, gave rise to the left anteri or descending and left circumflex arteries and did not show any significant stenosis. b. The left anterior descending artery did not show any significant stenosis. c. The left circumflex artery did not show any significant stenosis. d. The right coronary artery was a large and dominant vessel arising from the right sinus of Valsalv a that did not show any significant stenosis. Conclusion 1. No significant coronary artery disease 2. Normal left ventricualar systolic function with ejection fraction estimated at 60%. Recommendations Patient's non-STEMI is most probably type 2/demand ischemia Cardiovascular risk factor modification Signed by : Devante Ott, Electronically Approved : 11/03/2018 13:09:48
--- NOTE | 2018-11-03 13:17 | EKG ---
[facility] [address] [place] [address] Test Date: 2018-11-03 Test Time: 11:25:59 Pat Name: JONEL GUAJARDO Department: Room: 208 1 Gender: M Director Database: KRISTIN : 1960 Requested By: KATY WATTS Order Number: [id number] Reading MD: Gus Jean MD Measurements Intervals [place] Rate: 82 P: 43 PA: 164 QRS: -10 QRSD: 94 T: 30 QT: 398 QTc: 468 Interpretive Statements SINUS RHYTHM NON-SPECIFIC ST/T CHANGES CANNOT RULE OUT PRIOR INFERIOR INFARCT Electronically Signed On 11-07-2018 13:56:15 CDT by Gus Jean MD
[2018-11-03] MEDS ORDERED: TAMS0.4C97 PO (14:33)
[2018-11-03] MEDS ORDERED: HALOPERIDOL LACTATE 5 MG/ML VIAL. IVP PRN (14:45)
[2018-11-03] MEDS ORDERED: LORazepam 1 MG TABLET PO PRN (14:45)
[2018-11-03] MEDS ORDERED: cloNIDine HCL 0.1 MG TABLET PO PRN (14:45)
[2018-11-03] MEDS: traMADol 50 MG TABLET PO PRN ×2 (15:07→21:22)
[2018-11-03] MEDS: IV 1/2 NORMAL SALINE 1,000 ML IV SCH (15:08)
[2018-11-03] MEDS: MULTIVIT INFUSN,ADULT 4,VIT K 10 ML, THIAMINE INJ 100 MG, FOLIC ACID INJ 1 MG in IV NOR... IV SCH (15:08)
[2018-11-03] MEDS: PANTOPRAZOLE 40 MG TABLET.DR. PO SCH (15:10)
[2018-11-03] MEDS: DICLOFENAC SODIUM 25 MG TABLET.DR PO SCH (20:17)
[2018-11-03] MEDS ORDERED: TAMSULOSIN 0.4 MG CAP.ER.24H. PO SCH (21:00)
[2018-11-04 02:38] VITALS: BP 119/74
[2018-11-04 04:48] LABS: BASO % 1 % (0-3); EOS # 0.1 x10^3/uL (0.0-0.7); EOS % 3 % (0-3); HEMATOCRIT 38.9 % (39.0-53.0); HEMOGLOBIN 12.7 g/dL (13.0-17.5); LYMPH # 1.4 x10^3/uL (1.0-4.8); LYMPH % 44 % (24-48); MEAN CORPUSCULAR HEMOGLOBIN 32 pg (25-35); MEAN CORPUSCULAR HGB CONC 33 g/dL (31-37); MEAN CORPUSCULAR VOLUME 97 fL (79-100); MONO # 0.4 x10^3/uL (0.0-1.1); MONO % 12 % (0-9); NEUT # 1.3 x10^3uL (1.8-7.7); NEUT % 40 % (31-73); PLATELET COUNT 126 x10^3/uL (140-400); RED BLOOD COUNT 4.01 x10^6/uL (4.30-5.70); RED CELL DISTRIBUTION WIDTH 14.2 % (11.5-14.5); WHITE BLOOD COUNT 3.3 x10^3/uL (4.0-11.0)
[2018-11-04 05:26] LABS: ALBUMIN 2.9 g/dL (3.4-5.0); ALBUMIN/GLOBULIN RATIO 0.9 (1.0-1.7); CALCIUM 8.7 mg/dL (8.5-10.1); CREATININE 1.2 mg/dL (0.7-1.3); POTASSIUM 3.6 mmol/L (3.5-5.1); TOTAL BILIRUBIN 1.1 mg/dL (0.2-1.0)
[2018-11-04] MEDS: traMADol 50 MG TABLET PO PRN (05:35)
[2018-11-04] MEDS: IV 1/2 NORMAL SALINE 1,000 ML IV SCH (05:40)
[2018-11-04] MEDS: IV NORMAL SALINE 1000ML BAG 1,000 ML IV SCH (07:00)
[2018-11-04 07:13] VITALS: BP 135/91
[2018-11-04] MEDS: DICLOFENAC SODIUM 25 MG TABLET.DR PO SCH (08:43)
[2018-11-04] MEDS: PANTOPRAZOLE 40 MG TABLET.DR. PO SCH (08:43)
[2018-11-04 11:25] VITALS: BP 123/72
[2018-11-04] MEDS: MULTIVIT INFUSN,ADULT 4,VIT K 10 ML, THIAMINE INJ 100 MG, FOLIC ACID INJ 1 MG in IV NOR... IV SCH (12:15)
[2018-11-04] MEDS ORDERED: IOHEXOL 350 MG/ML 100 ML VIAL. IV ONE (13:00)
[2018-11-04] MEDS ORDERED: CONTRAST GIVEN. MC PRN (13:15)
--- NOTE | 2018-11-04 13:43 | RAD ---
EXAM: CT angiography of the chest with intravenous contrast. HISTORY: Elevated d-dimer. Chest pain. TECHNIQUE: Computed tomographic images of the chest were obtained following the administration of 100 cc Omnipaque 350 intravenous contrast according to angiography protocol. Multiplanar reformatting was performed and 3-dimensional maximum intensity projection images were obtained. *One or more of the following individualized dose reduction techniques were utilized for this examination: 1. Automated exposure control. 2. Adjustment of the mA and/or kV according to patient size. 3. Use of iterative reconstruction technique. COMPARISON: None. FINDINGS: Evaluation for distal pulmonary emboli is limited due to suboptimal contrast opacification of the distal pulmonary arteries. No convincing embolism is seen. The heart is normal in size. The aorta is normal in caliber. There is coronary artery atherosclerosis. There is calcification of the aortic valve. No pathologically enlarged mediastinal or hilar lymph node is seen. There is no pneumothorax or pleural effusion. There is bilateral posterior dependent and basilar atelectasis. There is no infiltrate or suspicious pulmonary nodule. There is hepatomegaly and hepatic steatosis. There is a 4.0 cm right renal cyst. The remainder of the upper abdomen is grossly unremarkable. There is no suspicious osseous lesion. IMPRESSION: 1. No evidence of pulmonary embolism. Evaluation of the distal pulmonary arteries is slightly limited due to suboptimal contrast opacification. 2. No alternative acute thoracic finding. 3. Hepatomegaly and hepatic steatosis. 4. Right renal cyst. Electronically signed by: Birdie Monroe MD (11/04/2018 1:40 PM) [id number]
[2018-11-04] MEDS ORDERED: MELO15TA6 PO (14:27)
[2018-11-04] MEDS ORDERED: DICL100G18 TP (14:27)
--- NOTE | 2018-11-04 14:29 | PDOC ---
PROGRESS NOTES Chief Complaint Chief Complaint A/P: NSTEMI - Trop at 0.3 with Chest pain. EKG sinus with LAFB. Start heparin GTT, ASA, NTG, cardiology consultation. with prior CVA, age he likely needs cardiac catheterization, will defer to cardiology Leukopenia - patient if , can be normal variant Transaminitis - AST and ALT as well as bilirubin elevation, likely ETOH, though his level is 0, he has not drank in the past day. Will monitor trend LE swelling - negative BNP, likely related to low albumin from ETOH use Prior CVA - should be on high intensity statin and ASA. 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 [address] on CIWA History of Present Illness History of Present Illness 58-year-old male w/ PMHx prior CVA, GERD, ETOH abuse who presents with complaint of chest pain that started between 3-4AM this morning. Patient states that it woke him from sleep. He describes pain as sharp and stabbing in nature and states the pain is worsened with movements and with deep breathing. He also admits to a cough but states cough is not been productive. Patient denies any history of blood clots, but does endorse swelling in his legs however. Patient denies any nausea, vomiting or diaphoresis. He states that nothing improves the pain. He rates pain currently at an 8 out of 10. Given ASA and NTG in ED. AST 105, ALT 102, Bili 1.6. Troponin 0.3. CXR clear. EKG with NSR and LAFB. On further review notes he has had CP and nausea off and on for the past 2 weeks, but it became severe last night. He vomits during my examination and notes he does have a history of drinking and prior CVA, when asked about further medical history he advises me to "call [facility]", notes he had CVA there 5-6 years ago. He went urgently to pipelines laborer: Conclusion 1. No significant coronary artery disease 2. Normal left ventricualar systolic function with ejection fraction estimated at 60%. Recommendations Patient's non-STEMI is most probably type 2/demand ischemia Cardiovascular risk factor modification Had CTPA 11/04/18 showing no PE and revealing hepatomegaly and hepatic steatosis as well as right renal cyst. Vitals Vitals Vital Signs Date Time Temp Pulse Resp B/P (MAP) Pulse Ox O2 Delivery O2 Flow Rate FiO2 11/04/18 11:25 98.2 70 14 123/72 (89) 97 Room Air 98.2 11/03/18 13:05 2.0 Physical Exam General: Alert, Oriented X3, Cooperative, moderate distress Heart: Regular rate (SR), Other (2/6 systolic murmur to LLS border; S4) Abdomen: Soft, No tenderness Extremities: No cyanosis, No edema Skin: No breakdown, No significant lesion Labs LABS Laboratory Tests Test 11/03/18 16:50 11/04/18 04:00 Troponin I Quantitative 0.292 ng/mL (0.000-0.055) White Blood Count 3.3 x10^3/uL (4.0-11.0) Red Blood Count 4.01 x10^6/uL (4.30-5.70) Hemoglobin 12.7 g/dL (13.0-17.5) Hematocrit 38.9 % (39.0-53.0) Mean Corpuscular Volume 97 fL (79-100) Mean Corpuscular Hemoglobin 32 pg (25-35) Mean Corpuscular Hemoglobin Concent 33 g/dL (31-37) Red Cell Distribution Width 14.2 % (11.5-14.5) Platelet Count 126 x10^3/uL (140-400) Neutrophils (%) (Auto) 40 % (31-73) Lymphocytes (%) (Auto) 44 % (24-48) Monocytes (%) (Auto) 12 % (0-9) Eosinophils (%) (Auto) 3 % (0-3) Basophils (%) (Auto) 1 % (0-3) Neutrophils # (Auto) 1.3 x10^3uL (1.8-7.7) Lymphocytes # (Auto) 1.4 x10^3/uL (1.0-4.8) Monocytes # (Auto) 0.4 x10^3/uL (0.0-1.1) Eosinophils # (Auto) 0.1 x10^3/uL (0.0-0.7) Basophils # (Auto) 0.0 x10^3/uL (0.0-0.2) Sodium Level 142 mmol/L (136-145) Potassium Level 3.6 mmol/L (3.5-5.1) Chloride Level 106 mmol/L (98-107) Carbon Dioxide Level 27 mmol/L (21-32) Anion Gap 9 (6-14) Blood Urea Nitrogen 10 mg/dL (8-26) Creatinine 1.2 mg/dL (0.7-1.3) Estimated GFR (Cockcroft-Gault) 75.0 BUN/Creatinine Ratio 8 (6-20) Glucose Level 90 mg/dL (70-99) Calcium Level 8.7 mg/dL (8.5-10.1) Total Bilirubin 1.1 mg/dL (0.2-1.0) Aspartate Amino Transf (AST/SGOT) 53 U/L (15-37) Alanine Aminotransferase (ALT/SGPT) 63 U/L (16-63) Alkaline Phosphatase 86 U/L (46-116) Total Protein 6.0 g/dL (6.4-8.2) Albumin 2.9 g/dL (3.4-5.0) Albumin/Globulin Ratio 0.9 (1.0-1.7) Assessment and Plan Assessmemt and Plan Problems Medical Problems: (1) NSTEMI (non-ST elevated myocardial infarction) Status: Acute Comment Review of Relevant I have reviewed the following items prachi (where applicable) has been applied. Labs Laboratory Tests Test 11/03/18 09:51 11/03/18 13:45 11/03/18 16:50 11/04/18 04:00 White Blood Count 3.8 x10^3/uL (4.0-11.0) 3.3 x10^3/uL (4.0-11.0) Red Blood Count 5.02 x10^6/uL (4.30-5.70) 4.01 x10^6/uL (4.30-5.70) Hemoglobin 16.0 g/dL (13.0-17.5) 12.7 g/dL (13.0-17.5) Hematocrit 48.3 % (39.0-53.0) 38.9 % (39.0-53.0) Mean Corpuscular Volume 96 fL (79-100) 97 fL (79-100) Mean Corpuscular Hemoglobin 32 pg (25-35) 32 pg (25-35) Mean Corpuscular Hemoglobin Concent 33 g/dL (31-37) 33 g/dL (31-37) Red Cell Distribution Width 14.1 % (11.5-14.5) 14.2 % (11.5-14.5) Platelet Count 163 x10^3/uL (140-400) 126 x10^3/uL (140-400) Neutrophils (%) (Auto) 51 % (31-73) 40 % (31-73) Lymphocytes (%) (Auto) 35 % (24-48) 44 % (24-48) Monocytes (%) (Auto) 11 % (0-9) 12 % (0-9) Eosinophils (%) (Auto) 2 % (0-3) 3 % (0-3) Basophils (%) (Auto) 1 % (0-3) 1 % (0-3) Neutrophils # (Auto) 1.9 x10^3uL (1.8-7.7) 1.3 x10^3uL (1.8-7.7) Lymphocytes # (Auto) 1.3 x10^3/uL (1.0-4.8) 1.4 x10^3/uL (1.0-4.8) Monocytes # (Auto) 0.4 x10^3/uL (0.0-1.1) 0.4 x10^3/uL (0.0-1.1) Eosinophils # (Auto) 0.1 x10^3/uL (0.0-0.7) 0.1 x10^3/uL (0.0-0.7) Basophils # (Auto) 0.0 x10^3/uL (0.0-0.2) 0.0 x10^3/uL (0.0-0.2) D-Dimer (Latia) 1.54 ug/mlFEU (0.00-0.50) Sodium Level 140 mmol/L (136-145) 142 mmol/L (136-145) Potassium Level 4.0 mmol/L (3.5-5.1) 3.6 mmol/L (3.5-5.1) Chloride Level 102 mmol/L (98-107) 106 mmol/L (98-107) Carbon Dioxide Level 23 mmol/L (21-32) 27 mmol/L (21-32) Anion Gap 15 (6-14) 9 (6-14) Blood Urea Nitrogen 6 mg/dL (8-26) 10 mg/dL (8-26) Creatinine 1.1 mg/dL (0.7-1.3) 1.2 mg/dL (0.7-1.3) Estimated GFR (Cockcroft-Gault) 82.9 75.0 BUN/Creatinine Ratio 5 (6-20) 8 (6-20) Glucose Level 86 mg/dL (70-99) 90 mg/dL (70-99) Calcium Level 9.7 mg/dL (8.5-10.1) 8.7 mg/dL (8.5-10.1) Magnesium Level 2.3 mg/dL (1.8-2.4) Total Bilirubin 1.6 mg/dL (0.2-1.0) 1.1 mg/dL (0.2-1.0) Aspartate Amino Transf (AST/SGOT) 105 U/L (15-37) 53 U/L (15-37) Alanine Aminotransferase (ALT/SGPT) 102 U/L (16-63) 63 U/L (16-63) Alkaline Phosphatase 113 U/L (46-116) 86 U/L (46-116) Troponin I Quantitative 0.389 ng/mL (0.000-0.055) 0.288 ng/mL (0.000-0.055) 0.292 ng/mL (0.000-0.055) KQ-Qcy-O-Type Natriuretic Peptide 78 pg/mL (0-124) Total Protein 7.7 g/dL (6.4-8.2) 6.0 g/dL (6.4-8.2) Albumin 4.1 g/dL (3.4-5.0) 2.9 g/dL (3.4-5.0) Albumin/Globulin Ratio 1.1 (1.0-1.7) 0.9 (1.0-1.7) Triglycerides Level 59 mg/dL (0-150) Cholesterol Level 277 mg/dL (0-200) LDL Cholesterol, Calculated 130 mg/dL (0-100) VLDL Cholesterol, Calculated 12 mg/dL (0-40) Non-HDL Cholesterol Calculated 142 mg/dL (0-129) HDL Cholesterol 135 mg/dL (40-60) Cholesterol/HDL Ratio 2.1 Lipase 149 U/L (73-393) Thyroid Stimulating Hormone (TSH) 1.306 uIU/mL (0.358-3.74) Ethyl Alcohol Level < 10 mg/dL (0-10) Laboratory Tests Test 11/03/18 16:50 11/04/18 04:00 Troponin I Quantitative 0.292 ng/mL (0.000-0.055) White Blood Count 3.3 x10^3/uL (4.0-11.0) Red Blood Count 4.01 x10^6/uL (4.30-5.70) Hemoglobin 12.7 g/dL (13.0-17.5) Hematocrit 38.9 % (39.0-53.0) Mean Corpuscular Volume 97 fL (79-100) Mean Corpuscular Hemoglobin 32 pg (25-35) Mean Corpuscular Hemoglobin Concent 33 g/dL (31-37) Red Cell Distribution Width 14.2 % (11.5-14.5) Platelet Count 126 x10^3/uL (140-400) Neutrophils (%) (Auto) 40 % (31-73) Lymphocytes (%) (Auto) 44 % (24-48) Monocytes (%) (Auto) 12 % (0-9) Eosinophils (%) (Auto) 3 % (0-3) Basophils (%) (Auto) 1 % (0-3) Neutrophils # (Auto) 1.3 x10^3uL (1.8-7.7) Lymphocytes # (Auto) 1.4 x10^3/uL (1.0-4.8) Monocytes # (Auto) 0.4 x10^3/uL (0.0-1.1) Eosinophils # (Auto) 0.1 x10^3/uL (0.0-0.7) Basophils # (Auto) 0.0 x10^3/uL (0.0-0.2) Sodium Level 142 mmol/L (136-145) Potassium Level 3.6 mmol/L (3.5-5.1) Chloride Level 106 mmol/L (98-107) Carbon Dioxide Level 27 mmol/L (21-32) Anion Gap 9 (6-14) Blood Urea Nitrogen 10 mg/dL (8-26) Creatinine 1.2 mg/dL (0.7-1.3) Estimated GFR (Cockcroft-Gault) 75.0 BUN/Creatinine Ratio 8 (6-20) Glucose Level 90 mg/dL (70-99) Calcium Level 8.7 mg/dL (8.5-10.1) Total Bilirubin 1.1 mg/dL (0.2-1.0) Aspartate Amino Transf (AST/SGOT) 53 U/L (15-37) Alanine Aminotransferase (ALT/SGPT) 63 U/L (16-63) Alkaline Phosphatase 86 U/L (46-116) Total Protein 6.0 g/dL (6.4-8.2) Albumin 2.9 g/dL (3.4-5.0) Albumin/Globulin Ratio 0.9 (1.0-1.7) Medications Current Medications Sodium Chloride 1,000 ml @ 1,000 mls/hr Q1H IV Last administered on 11/03/18 10:10; Start 11/03/18 at 09:49; Stop 11/03/18 at 10:48; Status DC Aspirin (Children'S Aspirin) 324 mg 1X ONCE PO Last administered on 11/03/18 10:33; Start 11/03/18 at 10:30; Stop 11/03/18 at 10:31; Status DC Nitroglycerin (Nitrostat) 0.4 mg PRN Q5MIN PRN SL CHEST PAIN Last administered on 11/03/18at 11:01; Start 11/03/18 at 10:45 Heparin Sodium (Porcine) (Heparin Sodium) 4,000 unit 1X ONCE IV Last administered on 11/03/18at 10:44; Start 11/03/18 at 10:45; Stop 11/03/18 at 12:37; Status DC Heparin Sodium/ Dextrose 500 ml @ 0 mls/hr CONT PRN IV SEE I/O RECORD Last administered on 11/03/18at 10:48; Start 11/03/18 at 10:45; Stop 11/03/18 at 12:37; Status DC Heparin Sodium (Porcine) (Heparin Sodium) 2,600 unit PRN Q6HRS PRN IV FOR UFH LEVEL LESS THAN 0.2; Start 11/03/18 at 10:45; Stop 11/03/18 at 12:37; Status DC Info (CONTRAST GIVEN -- Rx MONITORING) 1 each PRN DAILY PRN MC SEE COMMENTS; Start 11/03/18 at 10:45; Stop 11/05/18 at 10:44; Status Cancel Ondansetron HCl (Zofran) 4 mg PRN Q8HRS PRN IV NAUSEA/VOMITING; Start 11/03/18 at 11:00; Stop 11/04/18 at 10:59; Status DC Morphine Sulfate (Morphine Sulfate) 2 mg PRN Q2HR PRN IV PAIN; Start 11/03/18 at 11:00; Stop 11/04/18 at 10:59; Status DC Sodium Chloride 1,000 ml @ 100 mls/hr Q10H IV Last administered on 11/03/18at 11:51; Start 11/03/18 at 11:00; Stop 11/04/18 at 10:59; Status DC Nitroglycerin (Nitrostat) 0.4 mg PRN Q5MIN PRN SL CHEST PAIN; Start 11/03/18 at 11:00; Stop 11/04/18 at 10:59; Status UNV Info (Anti-Coagulation Monitoring By Pharmacy) 1 each PRN DAILY PRN MC SEE COMMENTS; Start 11/03/18 at 11:00; Stop 11/04/18 at 10:31; Status DC Ondansetron HCl (Zofran) 4 mg 1X ONCE IV Last administered on 11/03/18at 10:58; Start 11/03/18 at 11:00; Stop 11/03/18 at 11:01; Status DC Iodixanol (Visipaque 320) 100 ml STK-MED ONCE .ROUTE ; Start 11/03/18 at 11:48; Stop 11/03/18 at 11:49; Status DC Lidocaine HCl (Xylocaine-Mpf 1% 2ml Vial) 2 ml STK-MED ONCE .ROUTE ; Start 11/03/18 at 11:48; Stop 11/03/18 at 11:49; Status DC Heparin Sodium/ Sodium Chloride 500 ml @ As Directed STK-MED ONCE .ROUTE ; Start 11/03/18 at 11:48; Stop 11/03/18 at 11:49; Status DC Fentanyl Citrate (Fentanyl 2ml Vial) 100 mcg STK-MED ONCE .ROUTE ; Start 11/03/18 at 11:52; Stop 11/03/18 at 11:53; Status DC Sodium Chloride 1,000 ml @ 1,000 mls/hr 1X ONCE IV Last administered on 11/03/18at 11:20; Start 11/03/18 at 12:00; Stop 11/03/18 at 12:59; Status DC Midazolam HCl (Versed) 2 mg STK-MED ONCE .ROUTE ; Start 11/03/18 at 11:52; Stop 11/03/18 at 11:53; Status DC Heparin Sodium (Porcine) (Heparin Sodium) 10,000 unit STK-MED ONCE .ROUTE ; Start 11/03/18 at 11:52; Stop 11/03/18 at 11:53; Status DC Verapamil HCl (Verapamil) 5 mg STK-MED ONCE .ROUTE ; Start 11/03/18 at 11:53; Stop 11/03/18 at 11:54; Status DC Nitroglycerin (Nitroglycerin) 200 mcg STK-MED ONCE .ROUTE ; Start 11/03/18 at 11:53; Stop 11/03/18 at 11:54; Status DC Nitroglycerin (Nitroglycerin) 200 mcg 1X ONCE IART Last administered on 11/03/18at 12:30; Start 11/03/18 at 12:30; Stop 11/03/18 at 12:31; Status DC Verapamil HCl (Verapamil) 2.5 mg 1X ONCE IART Last administered on 11/03/18at 12:30; Start 11/03/18 at 12:30; Stop 11/03/18 at 12:31; Status DC Heparin Sodium (Porcine) (Heparin Sodium) 2,500 unit 1X ONCE IART Last administered on 11/03/18at 12:30; Start 11/03/18 at 12:30; Stop 11/03/18 at 12:31; Status DC Heparin Sodium/ Sodium Chloride (HEPARIN for ARTERIAL LINE FLUSH) 1,000 unit 1X ONCE IART Last administered on 11/03/18at 12:30; Start 11/03/18 at 12:30; Stop 11/03/18 at 12:31; Status DC Midazolam HCl (Versed) 2 mg 1X ONCE IV Last administered on 11/03/18at 12:30; Start 11/03/18 at 12:30; Stop 11/03/18 at 12:31; Status DC Fentanyl Citrate (Fentanyl 2ml Vial) 100 mcg 1X ONCE IV Last administered on 11/03/18at 12:30; Start 11/03/18 at 12:30; Stop 11/03/18 at 12:31; Status DC Iodixanol (Visipaque 320) 100 ml 1X ONCE IART Last administered on 11/03/18at 12:30; Start 11/03/18 at 12:30; Stop 11/03/18 at 12:31; Status DC Lidocaine HCl (Xylocaine-Mpf 1% 2ml Vial) 2 ml 1X ONCE INJ Last administered on 11/03/18at 12:30; Start 11/03/18 at 12:30; Stop 11/03/18 at 12:31; Status DC Info (CONTRAST GIVEN -- Rx MONITORING) 1 each PRN DAILY PRN MC SEE COMMENTS; Start 11/03/18 at 12:30; Stop 11/04/18 at 13:01; Status DC Sodium Chloride 1,000 ml @ 60 mls/hr [id number] IV Last administered on 11/03/18at 15:08; Start 11/03/18 at 13:00 Tamsulosin HCl (Flomax) 0.8 mg HS PO Last administered on 11/03/18at 20:17; Start 11/03/18 at 21:00 Diclofenac Sodium (Voltaren) 50 mg BID PO Last administered on 11/04/18at 08:43; Start 11/03/18 at 21:00 Multivitamins 10 ml/Thiamine HCl 100 mg/Folic Acid 1 mg/Sodium Chloride 1,011.2 ml @ 100 mls/ hr DAILY IV Last administered on 11/04/18at 12:15; Start 11/03/18 at 15:30; Stop 11/07/18 at 19:07 Lorazepam (Ativan) 1 mg PRN Q3HRS PRN PO For CIWA 8-14; Start 11/03/18 at 14:45 Lorazepam (Ativan) 1 mg PRN Q3HRS PRN IV For CIWA 8-14; Start 11/03/18 at 14:45 Haloperidol Lactate (Haldol Inj) 5 mg PRN Q4HRS PRN IVP Hallucinatns,Confusn,Delirium; Start 11/03/18 at 14:45 Clonidine HCl (Catapres) 0.1 mg PRN Q1HR PRN PO SBP > 180 or DBP > 100, MRX3; Start 11/03/18 at 14:45 Pantoprazole Sodium (Protonix) 40 mg DAILYAC PO Last administered on 11/04/18at 08:43; Start 11/03/18 at 15:30 Tramadol HCl (Ultram) 50 mg PRN Q6HRS PRN PO PAIN Last administered on 11/04/18at 05:35; Start 11/03/18 at 15:15 Iohexol (Omnipaque 350 Mg/ml) 100 ml 1X ONCE IV Last administered on 11/04/18at 13:30; Start 11/04/18 at 13:00; Stop 11/04/18 at 13:01; Status DC Info (CONTRAST GIVEN -- Rx MONITORING) 1 each PRN DAILY PRN MC SEE COMMENTS; Start 11/04/18 at 13:15; Stop 11/06/18 at 13:14 Active Scripts Active Diclofenac Sodium 50 Mg Tablet. 1 Tab PO BID Reported Flomax (Tamsulosin Hcl) 0.4 Mg Cap.er.24h 0.8 Mg PO HS Vitals/I & O Vital Sign - Last 24 Hours 11/03/18 11/03/18 11/03/18 11/03/18 14:30 15:00 15:07 15:30 Temp 98.6 98.6 Pulse 90 90 96 Resp 16 B/P (MAP) 119/75 (90) 119/75 (90) 111/72 (85) Pulse Ox 98 96 97 98 O2 Delivery Room Air Room Air Room Air Room Air 11/03/18 11/03/18 11/03/18 11/03/18 16:15 16:27 17:15 19:20 Pulse 98 98 B/P (MAP) 108/71 (83) 125/82 (96) Pulse Ox 98 98 98 O2 Delivery Room Air Room Air Room Air 11/03/18 11/03/18 11/03/18 11/04/18 19:26 21:22 22:52 02:38 Temp 98.8 98.5 97.9 98.8 98.5 97.9 Pulse 85 92 64 Resp 18 20 20 14 B/P (MAP) 101/73 (82) 114/69 (84) 119/74 (89) Pulse Ox 97 96 99 O2 Delivery Room Air Room Air Room Air 11/04/18 11/04/18 11/04/18 11/04/18 05:35 06:35 07:13 07:55 Temp 97.9 97.9 Pulse 74 Resp 20 20 16 B/P (MAP) 135/91 (106) Pulse Ox 96 O2 Delivery Room Air Room Air Room Air Room Air 11/04/18 11:25 Temp 98.2 98.2 Pulse 70 Resp 14 B/P (MAP) 123/72 (89) Pulse Ox 97 O2 Delivery Room Air Intake and Output 11/03/18 11/03/18 11/04/18 15:00 23:00 07:00 Intake Total 2600 ml 720 ml 1080 ml Output Total 200 ml 1050 ml Balance 2400 ml 720 ml 30 ml Images CTPA - 1. No evidence of pulmonary embolism. Evaluation of the distal pulmonary arteries is slightly limited due to suboptimal contrast opacification. 2. No alternative acute thoracic finding. 3. Hepatomegaly and hepatic steatosis. 4. Right renal cyst. KATY WATTS MD November 04, 2018 14:29
--- NOTE | 2018-11-04 14:35 | PDOC3 ---
Discharge Summary Visit Information Date of Admission: November 03, 2018 Date of Discharge: November 04, 2018 Final Diagnosis Problems Medical Problems: (1) NSTEMI (non-ST elevated myocardial infarction) Status: Acute Brief Hospital Course Allergies Allergies Coded Allergies Type Severity Reaction Last Updated Verified No Known Drug Allergies 09/28/18 No Vital Signs Vital Signs Date Time Temp Pulse Resp B/P (MAP) Pulse Ox O2 Delivery O2 Flow Rate FiO2 11/04/18 11:25 98.2 70 14 123/72 (89) 97 Room Air 98.2 11/03/18 13:05 2.0 Lab Results Laboratory Tests Test 11/03/18 09:51 11/03/18 13:45 11/03/18 16:50 11/04/18 04:00 White Blood Count 3.8 x10^3/uL (4.0-11.0) 3.3 x10^3/uL (4.0-11.0) Red Blood Count 5.02 x10^6/uL (4.30-5.70) 4.01 x10^6/uL (4.30-5.70) Hemoglobin 16.0 g/dL (13.0-17.5) 12.7 g/dL (13.0-17.5) Hematocrit 48.3 % (39.0-53.0) 38.9 % (39.0-53.0) Mean Corpuscular Volume 96 fL (79-100) 97 fL (79-100) Mean Corpuscular Hemoglobin 32 pg (25-35) 32 pg (25-35) Mean Corpuscular Hemoglobin Concent 33 g/dL (31-37) 33 g/dL (31-37) Red Cell Distribution Width 14.1 % (11.5-14.5) 14.2 % (11.5-14.5) Platelet Count 163 x10^3/uL (140-400) 126 x10^3/uL (140-400) Neutrophils (%) (Auto) 51 % (31-73) 40 % (31-73) Lymphocytes (%) (Auto) 35 % (24-48) 44 % (24-48) Monocytes (%) (Auto) 11 % (0-9) 12 % (0-9) Eosinophils (%) (Auto) 2 % (0-3) 3 % (0-3) Basophils (%) (Auto) 1 % (0-3) 1 % (0-3) Neutrophils # (Auto) 1.9 x10^3uL (1.8-7.7) 1.3 x10^3uL (1.8-7.7) Lymphocytes # (Auto) 1.3 x10^3/uL (1.0-4.8) 1.4 x10^3/uL (1.0-4.8) Monocytes # (Auto) 0.4 x10^3/uL (0.0-1.1) 0.4 x10^3/uL (0.0-1.1) Eosinophils # (Auto) 0.1 x10^3/uL (0.0-0.7) 0.1 x10^3/uL (0.0-0.7) Basophils # (Auto) 0.0 x10^3/uL (0.0-0.2) 0.0 x10^3/uL (0.0-0.2) D-Dimer (Latia) 1.54 ug/mlFEU (0.00-0.50) Sodium Level 140 mmol/L (136-145) 142 mmol/L (136-145) Potassium Level 4.0 mmol/L (3.5-5.1) 3.6 mmol/L (3.5-5.1) Chloride Level 102 mmol/L (98-107) 106 mmol/L (98-107) Carbon Dioxide Level 23 mmol/L (21-32) 27 mmol/L (21-32) Anion Gap 15 (6-14) 9 (6-14) Blood Urea Nitrogen 6 mg/dL (8-26) 10 mg/dL (8-26) Creatinine 1.1 mg/dL (0.7-1.3) 1.2 mg/dL (0.7-1.3) Estimated GFR (Cockcroft-Gault) 82.9 75.0 BUN/Creatinine Ratio 5 (6-20) 8 (6-20) Glucose Level 86 mg/dL (70-99) 90 mg/dL (70-99) Calcium Level 9.7 mg/dL (8.5-10.1) 8.7 mg/dL (8.5-10.1) Magnesium Level 2.3 mg/dL (1.8-2.4) Total Bilirubin 1.6 mg/dL (0.2-1.0) 1.1 mg/dL (0.2-1.0) Aspartate Amino Transf (AST/SGOT) 105 U/L (15-37) 53 U/L (15-37) Alanine Aminotransferase (ALT/SGPT) 102 U/L (16-63) 63 U/L (16-63) Alkaline Phosphatase 113 U/L (46-116) 86 U/L (46-116) Troponin I Quantitative 0.389 ng/mL (0.000-0.055) 0.288 ng/mL (0.000-0.055) 0.292 ng/mL (0.000-0.055) GP-Smw-T-Type Natriuretic Peptide 78 pg/mL (0-124) Total Protein 7.7 g/dL (6.4-8.2) 6.0 g/dL (6.4-8.2) Albumin 4.1 g/dL (3.4-5.0) 2.9 g/dL (3.4-5.0) Albumin/Globulin Ratio 1.1 (1.0-1.7) 0.9 (1.0-1.7) Triglycerides Level 59 mg/dL (0-150) Cholesterol Level 277 mg/dL (0-200) LDL Cholesterol, Calculated 130 mg/dL (0-100) VLDL Cholesterol, Calculated 12 mg/dL (0-40) Non-HDL Cholesterol Calculated 142 mg/dL (0-129) HDL Cholesterol 135 mg/dL (40-60) Cholesterol/HDL Ratio 2.1 Lipase 149 U/L (73-393) Thyroid Stimulating Hormone (TSH) 1.306 uIU/mL (0.358-3.74) Ethyl Alcohol Level < 10 mg/dL (0-10) Laboratory Tests Test 11/03/18 16:50 11/04/18 04:00 Troponin I Quantitative 0.292 ng/mL (0.000-0.055) White Blood Count 3.3 x10^3/uL (4.0-11.0) Red Blood Count 4.01 x10^6/uL (4.30-5.70) Hemoglobin 12.7 g/dL (13.0-17.5) Hematocrit 38.9 % (39.0-53.0) Mean Corpuscular Volume 97 fL (79-100) Mean Corpuscular Hemoglobin 32 pg (25-35) Mean Corpuscular Hemoglobin Concent 33 g/dL (31-37) Red Cell Distribution Width 14.2 % (11.5-14.5) Platelet Count 126 x10^3/uL (140-400) Neutrophils (%) (Auto) 40 % (31-73) Lymphocytes (%) (Auto) 44 % (24-48) Monocytes (%) (Auto) 12 % (0-9) Eosinophils (%) (Auto) 3 % (0-3) Basophils (%) (Auto) 1 % (0-3) Neutrophils # (Auto) 1.3 x10^3uL (1.8-7.7) Lymphocytes # (Auto) 1.4 x10^3/uL (1.0-4.8) Monocytes # (Auto) 0.4 x10^3/uL (0.0-1.1) Eosinophils # (Auto) 0.1 x10^3/uL (0.0-0.7) Basophils # (Auto) 0.0 x10^3/uL (0.0-0.2) Sodium Level 142 mmol/L (136-145) Potassium Level 3.6 mmol/L (3.5-5.1) Chloride Level 106 mmol/L (98-107) Carbon Dioxide Level 27 mmol/L (21-32) Anion Gap 9 (6-14) Blood Urea Nitrogen 10 mg/dL (8-26) Creatinine 1.2 mg/dL (0.7-1.3) Estimated GFR (Cockcroft-Gault) 75.0 BUN/Creatinine Ratio 8 (6-20) Glucose Level 90 mg/dL (70-99) Calcium Level 8.7 mg/dL (8.5-10.1) Total Bilirubin 1.1 mg/dL (0.2-1.0) Aspartate Amino Transf (AST/SGOT) 53 U/L (15-37) Alanine Aminotransferase (ALT/SGPT) 63 U/L (16-63) Alkaline Phosphatase 86 U/L (46-116) Total Protein 6.0 g/dL (6.4-8.2) Albumin 2.9 g/dL (3.4-5.0) Albumin/Globulin Ratio 0.9 (1.0-1.7) Brief Hospital Course 58-year-old male w/ PMHx prior CVA, GERD, ETOH abuse who presents with complaint of chest pain that started between 3-4AM this morning. Patient states that it woke him from sleep. He describes pain as sharp and stabbing in nature and states the pain is worsened with movements and with deep breathing. He also admits to a cough but states cough is not been productive. Patient denies any history of blood clots, but does endorse swelling in his legs however. Patient denies any nausea, vomiting or diaphoresis. He states that nothing improves the pain. He rates pain currently at an 8 out of 10. Given ASA and NTG in ED. AST 105, ALT 102, Bili 1.6. Troponin 0.3. CXR clear. EKG with NSR and LAFB. On further review notes he has had CP and nausea off and on for the past 2 weeks, but it became severe last night. He vomits during my examination and notes he does have a history of drinking and prior CVA, when asked about further medical history he advises me to "call [facility]", notes he had CVA there 5-6 years ago. He went urgently to laboratory courier: Conclusion 1. No significant coronary artery disease 2. Normal left ventricular systolic function with ejection fraction estimated at 60%. Recommendations Patient's non-STEMI is most probably type 2/demand ischemia Cardiovascular risk factor modification Had CTPA 11/04/18 showing no PE and revealing hepatomegaly and hepatic steatosis as well as right renal cyst. ETOH cessation emphasized. He is currently on probation living in a custodial house, will get f/u at [facility], I have given him contact information. A/P: NSTEMI - Trop at 0.3 with Chest pain. EKG sinus with LAFB. Start heparin GTT, ASA, NTG, cardiology consultation. with prior CVA, age he had normal Leukopenia - patient if , can be normal variant Transaminitis - AST and ALT as well as bilirubin elevation, likely ETOH, though his level is 0, he has not drank in the past day. Will monitor trend LE swelling - negative BNP, likely related to low albumin from ETOH use Prior CVA - should be on high intensity statin and ASA. Will order [facility] records GERD - ppi ETOH abuse - will place on [facility] Bilateral OA - will give referral to ortho Greater than 30 minutes spent on discharge Discharge Information Condition at Discharge: Improved Follow Up: Weeks Disposition/Orders: D/C to Home Scheduled Diclofenac Sodium (Voltaren) 100 Gm Gel..gram., 1 GM TP QID for Right knee osteoarthritis for 30 Days, #100 Ref 2 Prescribed by: KATY WATTS MD on 11/04/18 1427 Meloxicam (Mobic) 15 Mg Tablet, 1 TAB PO DAILY for OA of right knee for 30 Days, #30 Ref 2 Prescribed by: KATY WATTS MD on 11/04/18 1427 Tamsulosin Hcl (Flomax) 0.4 Mg Cap.er.24h, 0.8 MG PO HS for Urinary Retention, (Reported) Entered as Reported by: CYNDEE CEE on 11/03/18 1433 Last Action: Continued on 11/03/18 1440 by KATY WATTS MD Discontinued Medications Diclofenac Sodium (Diclofenac Sodium) 50 Mg Tablet.dr, 1 TAB PO BID, #20 Ref 0 Prescribed by: Chio Hirsch APRN on 09/28/18 1339 Last Action: Converted on 11/03/18 1440 by MD STEFANIE MARTINEZ CHRISTOPHER S MD November 04, 2018 14:35
[2018-11-04] MEDS ORDERED: DICLOFENAC SODIUM 1% TOPICAL GEL 100GM TUBE. TP SCH (16:00)
--- NOTE | 2018-11-04 16:00 | NUR ---
Discharge Note: JONEL GUAJARDO Discharge instructions and discharge home medications reviewed with Patient and a copy given. All questions have been answered and understanding verbalized.
== END 2018-11-04 16:00 | disposition home or self-care (01) | DRG 280 ==
LOC: ER 09:44 → 2 NORTH 10:50
PROVIDERS: ADMIT Internal Medicine; ATTEND Internal Medicine
PROC: 4A023N7 Measurement of Cardiac Sampling and Pressure, Left Heart, Percutaneous Approach (ICD-10-PCS; principal; 2018-11-03)
PROC: B2111ZZ Fluoroscopy of Multiple Coronary Arteries using Low Osmolar Contrast (ICD-10-PCS; 2018-11-03)
PROC: B2151ZZ Fluoroscopy of Left Heart using Low Osmolar Contrast (ICD-10-PCS; 2018-11-03)
DX: I21.4 Non-ST elevation (NSTEMI) myocardial infarction (principal); R65.11 Systemic inflammatory response syndrome (SIRS) of non-infectious origin with acute organ dysfunction; K21.9 Gastro-esophageal reflux disease without esophagitis; E78.00 Pure hypercholesterolemia, unspecified; M19.90 Unspecified osteoarthritis, unspecified site; M10.9 Gout, unspecified; N40.0 Benign prostatic hyperplasia without lower urinary tract symptoms; I10 Essential (primary) hypertension; F17.210 Nicotine dependence, cigarettes, uncomplicated; D72.819 Decreased white blood cell count, unspecified; E78.5 Hyperlipidemia, unspecified; F10.20 Alcohol dependence, uncomplicated; F41.9 Anxiety disorder, unspecified; Z90.49 Acquired absence of other specified parts of digestive tract; Z86.73 Personal history of transient ischemic attack (TIA), and cerebral infarction without residual deficits; Z81.1 Family history of alcohol abuse and dependence
CPT/HCPCS: 36415; 71045; 71275; 80053; 80061; 83690; 83735; 83880; 84443; 84484; 85025; 85379; 93005; 93306; 93458; 96361; 96374; 96375; 99152; C1769; C1892; G0480; J1644; J2250; J2405; J3010; J3490; J7030; Q9967; 99285-25

== ENCOUNTER 2018-11-08 12:03 | Emergency (ER) | payer OTHER ==
[~2018-11-08] VITALS: Ht 180.3 cm; Wt 108.0 kg
[~2018-11-08 12:03] MED LIST changes: +DICL100G18 TP; +MELO15TA6 PO; +TAMS0.4C97 PO
[2018-11-08 13:16] LABS: BARBITURATES NEG (NEG); BENZODIAZEPINES NEG (NEG); CANNABINOIDS NEG (NEG); COCAINE POS (NEG); METHADONE NEG (NEG); OPIATES NEG (NEG); PHENCYCLIDINE NEG (NEG)
[2018-11-08 13:28] LABS: AMPHETAMINE/METHAMPHETAMINE NEG (NEG)
[2018-11-08 13:43] LABS: BASO # 0.1 x10^3/uL (0.0-0.2); BASO % 2 % (0-3); EOS # 0.1 x10^3/uL (0.0-0.7); EOS % 4 % (0-3); HEMATOCRIT 45.8 % (39.0-53.0); HEMOGLOBIN 15.4 g/dL (13.0-17.5); LYMPH # 1.7 x10^3/uL (1.0-4.8); LYMPH % 42 % (24-48); MEAN CORPUSCULAR HEMOGLOBIN 32 pg (25-35); MEAN CORPUSCULAR HGB CONC 34 g/dL (31-37); MEAN CORPUSCULAR VOLUME 96 fL (79-100); MONO # 0.6 x10^3/uL (0.0-1.1); MONO % 15 % (0-9); NEUT # 1.5 x10^3uL (1.8-7.7); NEUT % 38 % (31-73); PLATELET COUNT 190 x10^3/uL (140-400); RED BLOOD COUNT 4.79 x10^6/uL (4.30-5.70); RED CELL DISTRIBUTION WIDTH 14.4 % (11.5-14.5)
[2018-11-08 13:49] LABS: CALCIUM 9.1 mg/dL (8.5-10.1); CREATININE 1.2 mg/dL (0.7-1.3); POTASSIUM 3.9 mmol/L (3.5-5.1)
[2018-11-08 13:53] LABS: ALBUMIN 4.2 g/dL (3.4-5.0); TOTAL BILIRUBIN 0.6 mg/dL (0.2-1.0); TOTAL PROTEIN 8.3 g/dL (6.4-8.2)
[2018-11-08 13:56] LABS: ACETAMIN < 2 mcg/ml (10-30); SALIC < 2.8 mg/dL (2.8-20.0)
[2018-11-08 13:58] LABS: ETHANOL 261 mg/dL (0-10)
[2018-11-08] MEDS ORDERED: diazePAM 5 MG TABLET PO ONE (14:15)
--- NOTE | 2018-11-08 14:19 | PHYS DOC ---
Past Medical History Past Medical History: Arthritis, CVA, GERD, High Cholesterol, Heart Disease Additional Past Medical Histor: GOUT, ALLERGIES, ENLARGED PROSTATE Past Surgical History: Appendectomy Additional Past Surgical Histo: L ANKLE SX Alcohol Use: Heavy Drug Use: Cocaine Adult General Chief Complaint Chief Complaint: SUICDAL IDEATION HPI HPI 58-year-old male with multiple medical problems not the least of which are alcohol abuse and depression with previous suicide attempt in the past. Patient presents today stating that he is intoxicated and now suicidal. He states he's lonely and is been a progressive depression over the last 11 years secondary to the loss of his . He describes himself as a "knucklehead". He states if he goes home he would consider shooting himself in the head. He does not admit to any illicit drugs at this time.[] Review of Systems Review of Systems Constitutional: Denies fever or chills [] Eyes: Denies change in visual acuity, redness, or eye pain [] HENT: Denies nasal congestion or sore throat [] Respiratory: Denies cough or shortness of breath [] Cardiovascular: No additional information not addressed in HPI [] GI: Denies abdominal pain, nausea, vomiting, bloody stools or diarrhea [] : Denies dysuria or hematuria [] Musculoskeletal: Denies back pain or joint pain [] Integument: Denies rash or skin lesions [] Neurologic: Denies headache, focal weakness or sensory changes [] Endocrine: Denies polyuria or polydipsia [] All other systems were reviewed and found to be within normal limits, except as documented in this note. Current Medications Current Medications Current Medications Medications (Trade) Dose Ordered Sig/Luis Eduardo Start Time Stop Time Status Last Admin Dose Admin Diazepam (Valium) 5 mg 1X ONCE 11/08/18 14:15 11/08/18 14:16 Allergies Allergies Allergies Coded Allergies Type Severity Reaction Last Updated Verified No Known Drug Allergies 09/28/18 No Physical Exam Physical Exam Constitutional: Well developed, well nourished, anxious and intoxicated[] HENT: Normocephalic, atraumatic, bilateral external ears normal, oropharynx moist, no oral exudates, nose normal. [] Eyes: PERRLA, EOMI, conjunctiva normal, no discharge. [] Neck: Normal range of motion, no tenderness, supple, no stridor. [] Cardiovascular:Heart rate regular rhythm, no murmur [] Lungs & Thorax: Bilateral breath sounds clear to auscultation [] Abdomen: Bowel sounds normal, soft, no tenderness, no masses, no pulsatile masses. [] Skin: Warm, dry, no erythema, no rash. [] Back: No tenderness, no CVA tenderness. [] Extremities: No tenderness, no cyanosis, no clubbing, ROM intact, no edema. [] Neurologic: Alert and oriented X 3, normal motor function, normal sensory function, no focal deficits noted. [] Psychologic: Extremely anxious, tearful and suicidal[] Current Patient Data Vital Signs Vital Signs Date Time Temp Pulse Resp B/P (MAP) Pulse Ox O2 Delivery O2 Flow Rate FiO2 11/08/18 12:04 97.7 84 21 171/92 (118) 94 Room Air 97.7 Lab Values Laboratory Tests Test 11/08/18 12:43 11/08/18 13:30 Urine Opiates Screen Neg (NEG) Urine Methadone Screen Neg (NEG) Urine Barbiturates Neg (NEG) Urine Phencyclidine Screen Neg (NEG) Urine Amphetamine/Methamphetamine Neg (NEG) Urine Benzodiazepines Screen Neg (NEG) Urine Cocaine Screen Pos (NEG) Urine Cannabinoids Screen Neg (NEG) Urine Ethyl Alcohol Pos (NEG) White Blood Count 4.0 x10^3/uL (4.0-11.0) Red Blood Count 4.79 x10^6/uL (4.30-5.70) Hemoglobin 15.4 g/dL (13.0-17.5) Hematocrit 45.8 % (39.0-53.0) Mean Corpuscular Volume 96 fL (79-100) Mean Corpuscular Hemoglobin 32 pg (25-35) Mean Corpuscular Hemoglobin Concent 34 g/dL (31-37) Red Cell Distribution Width 14.4 % (11.5-14.5) Platelet Count 190 x10^3/uL (140-400) Neutrophils (%) (Auto) 38 % (31-73) Lymphocytes (%) (Auto) 42 % (24-48) Monocytes (%) (Auto) 15 % (0-9) H Eosinophils (%) (Auto) 4 % (0-3) H Basophils (%) (Auto) 2 % (0-3) Neutrophils # (Auto) 1.5 x10^3uL (1.8-7.7) L Lymphocytes # (Auto) 1.7 x10^3/uL (1.0-4.8) Monocytes # (Auto) 0.6 x10^3/uL (0.0-1.1) Eosinophils # (Auto) 0.1 x10^3/uL (0.0-0.7) Basophils # (Auto) 0.1 x10^3/uL (0.0-0.2) Sodium Level 139 mmol/L (136-145) Potassium Level 3.9 mmol/L (3.5-5.1) Chloride Level 101 mmol/L (98-107) Carbon Dioxide Level 25 mmol/L (21-32) Anion Gap 13 (6-14) Blood Urea Nitrogen 9 mg/dL (8-26) Creatinine 1.2 mg/dL (0.7-1.3) Estimated GFR (Cockcroft-Gault) 75.0 BUN/Creatinine Ratio 8 (6-20) Glucose Level 88 mg/dL (70-99) Calcium Level 9.1 mg/dL (8.5-10.1) Total Bilirubin 0.6 mg/dL (0.2-1.0) Aspartate Amino Transferase (AST) 73 U/L (15-37) H Alanine Aminotransferase (ALT) 85 U/L (16-63) H Alkaline Phosphatase 101 U/L (46-116) Total Protein 8.3 g/dL (6.4-8.2) H Albumin 4.2 g/dL (3.4-5.0) Albumin/Globulin Ratio 1.0 (1.0-1.7) Salicylates Level < 2.8 mg/dL (2.8-20.0) L Salicylate Last Dose Date Unknown Salicylate Last Dose Time Unknown Acetaminophen Level < 2 mcg/ml (10-30) L Acetaminophen Last Dose Date Unknown Acetaminophen Last Dose Time Unknown Ethyl Alcohol Level 261 mg/dL (0-10) H Laboratory Tests 11/08/18 13:30 Laboratory Tests 11/08/18 13:30 EKG EKG [EKG: Normal sinus rhythm rate of [address]-T changes] Radiology/Procedures Radiology/Procedures [] Course & Med Decision Making Course & Med Decision Making Pertinent Labs and Imaging studies reviewed. (See chart for details) [ED course: Evaluation reveals a 58-year-old male who is intoxicated and threatening suicide. I had mobile crisis come by and see the patient and had him excepted for admission to [place]. I do not believe the patient has any medical risk not to go to [place] to be sobered up. Hopefully they can get him into some [facility] services.] Dragon Disclaimer Dragon Disclaimer This electronic medical record was generated, in whole or in part, using a voice recognition dictation system. Departure Departure Impression: Primary Impression: Alcohol intoxication Additional Impression: Suicidal ideation Disposition: 05 TRANSFER OTHER ([place]) Condition: STABLE Referrals: NO PCP (PCP) Problem Qualifiers Primary Impression: Alcohol intoxication Complication of substance-induced condition: uncomplicated Qualified Codes: F10.920 - Alcohol use, unspecified with intoxication, uncomplicated TIM ODELL DO November 08, 2018 14:19
[2018-11-08 14:42] VITALS: BP 142/91
--- NOTE | 2018-11-09 08:53 | EKG ---
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
== END 2018-11-08 15:30 ==
LOC: ER 12:03
DX: R45.851 Suicidal ideations (principal); F10.229 Alcohol dependence with intoxication, unspecified; Y90.8 Blood alcohol level of 240 mg/100 ml or more; K21.9 Gastro-esophageal reflux disease without esophagitis; E78.00 Pure hypercholesterolemia, unspecified; M10.9 Gout, unspecified; Z86.73 Personal history of transient ischemic attack (TIA), and cerebral infarction without residual deficits; Z86.79 Personal history of other diseases of the circulatory system
CPT/HCPCS: 36415; 80053; 80307; 80329; 85025; 93005; 99285; G0480

== ENCOUNTER 2019-01-04 19:20 | Inpatient (IN) | payer OTHER, MEDICAID ==
[~2019-01-04] VITALS: Ht 185.4 cm; Wt 93.9 kg
[2019-01-04 19:42] LABS: BASO # 0.1 x10^3/uL (0.0-0.2); BASO % 1 % (0-3); EOS # 0.1 x10^3/uL (0.0-0.7); EOS % 2 % (0-3); HEMATOCRIT 41.3 % (39.0-53.0); HEMOGLOBIN 14.8 g/dL (13.0-17.5); LYMPH % 27 % (24-48); MEAN CORPUSCULAR HEMOGLOBIN 33 pg (25-35); MEAN CORPUSCULAR HGB CONC 36 g/dL (31-37); MEAN CORPUSCULAR VOLUME 91 fL (79-100); MONO # 0.7 x10^3/uL (0.0-1.1); MONO % 10 % (0-9); NEUT # 4.3 x10^3uL (1.8-7.7); NEUT % 61 % (31-73); PLATELET COUNT 189 x10^3/uL (140-400); RED BLOOD COUNT 4.52 x10^6/uL (4.30-5.70); RED CELL DISTRIBUTION WIDTH 12.6 % (11.5-14.5); WHITE BLOOD COUNT 7.1 x10^3/uL (4.0-11.0)
[2019-01-04] MEDS ORDERED: BENZOCAINE 10% ORAL GEL 7GM TUBE. TP STA (19:51)
[2019-01-04 19:53] LABS: CALCIUM 9.2 mg/dL (8.5-10.1); CREATININE 1.4 mg/dL (0.7-1.3); GFR 62.8; POTASSIUM 3.5 mmol/L (3.5-5.1)
[2019-01-04 19:56] LABS: ACETAMIN < 2 mcg/ml (10-30); ETHANOL < 10 mg/dL (0-10); SALIC < 2.8 mg/dL (2.8-20.0)
[2019-01-04 19:58] LABS: ALBUMIN 4.3 g/dL (3.4-5.0); ALBUMIN/GLOBULIN RATIO 1.1 (1.0-1.7); TOTAL BILIRUBIN 2.1 mg/dL (0.2-1.0); TOTAL PROTEIN 8.3 g/dL (6.4-8.2)
--- NOTE | 2019-01-04 20:12 | RAD ---
Chest AP portable at 1930: Reason for examination: Short of breath. Comparison is made to previous study dated 11/03/2018. The heart size is normal. Mediastinum is unremarkable. Lung corbett are clear. No acute bony abnormalities are seen. Impression: No acute cardiopulmonary disease. Electronically signed by: Amelia Khan MD (01/04/2019 8:08 PM) [facility]
[2019-01-04] MEDS ORDERED: diphenhydrAMINE 50 MG/ML VIAL IVP ONE (20:30)
--- NOTE | 2019-01-04 20:33 | PHYS DOC ---
Past Medical History Past Medical History: Arthritis, CVA, GERD, High Cholesterol, Heart Disease Additional Past Medical Histor: GOUT, ALLERGIES, ENLARGED PROSTATE Past Surgical History: Appendectomy Additional Past Surgical Histo: L ANKLE SX Alcohol Use: Heavy Drug Use: Cocaine Adult General Chief Complaint Chief Complaint: CHEST PAIN HPI HPI Patient is a 58 year old male brought in by ambulance with multiple complaints apparently he has been doing partying this afternoon he said he did as many drugs as he could get his hands on he took a bunch of pills he didn't know what they were it's possible he was using marijuana he said he was also drinking earlier in the day he is not having any suicidal ideation at all. He complains of abdominal pain as well as sore throat scratchy throat some chest wall pain worse with palpation and movement also complains of bilateral leg pain basically pain all over his body he is quite anxious and sort of twitching in the emergen cy room. He had a clean catheter last month Review of Systems Review of Systems Constitutional: Denies fever or chills [] Cardiovascular: No additional information not addressed in HPI [] GI: Denies abdominal pain, nausea, vomiting, bloody stools or diarrhea [] : Denies dysuria or hematuria [] All other systems were reviewed and found to be within normal limits, except as documented in this note. Current Medications Current Medications Current Medications Medications (Trade) Dose Ordered Sig/Luis Eduardo Start Time Stop Time Status Last Admin Dose Admin Aspirin (Children'S Aspirin) 324 mg 1X ONCE 01/05/19 01:00 01/05/19 01:01 Benzocaine (Ora-Jel) 1 jil 1X STAT 01/04/19 19:51 01/04/19 19:55 DC 01/04/19 19:59 1 JIL Diphenhydramine HCl (Benadryl) 25 mg 1X ONCE 01/04/19 20:30 01/04/19 20:31 DC 01/04/19 20:25 25 MG Lorazepam (Ativan Inj) 1 mg 1X ONCE 01/04/19 22:00 01/04/19 22:01 DC 01/04/19 22:29 1 MG Multi-Ingredient Mouthwash/Gargle (Gi Cocktail) 20 ml 1X ONCE 01/04/19 21:30 01/04/19 21:31 DC 01/04/19 22:29 20 ML Allergies Allergies Allergies Coded Allergies Type Severity Reaction Last Updated Verified No Known Drug Allergies 09/28/18 No Physical Exam Physical Exam Constitutional: Well developed, well nourished, patient is twitchy appears to be tweaking HENT: Poor dentition there is a small ulcer on the left lateral tongue no obvious infection noted oropharynx is clear uvula is normal no stridor Eyes: PERRLA, EOMI, conjunctiva normal, no discharge. [] Neck: Normal range of motion, no tenderness, supple, no stridor. [] Cardiovascular:Heart rate regular rhythm, no murmur [] Lungs & Thorax: Bilateral breath sounds clear to auscultation []chest wall tenderness noted on the left Abdomen: Bowel sounds normal, soft, no tenderness, no masses, no pulsatile masses. [] Skin: Warm, dry, no erythema, no rash. [] Back: No tenderness, no CVA tenderness. [] Extremities: No tenderness, no cyanosis, no clubbing, ROM intact, no edema. [] Neurologic: Alert and oriented X 3, normal motor function, normal sensory function, no focal deficits noted. [] Psychologic: Anxious and increased psychomotor agitation Current Patient Data Vital Signs Vital Signs Date Time Temp Pulse Resp B/P (MAP) Pulse Ox O2 Delivery O2 Flow Rate FiO2 01/04/19 20:30 94 20 146/95 (112) 95 Room Air 01/04/19 19:20 99.1 99.1 Lab Values Laboratory Tests Test 01/04/19 19:32 White Blood Count 7.1 x10^3/uL (4.0-11.0) Red Blood Count 4.52 x10^6/uL (4.30-5.70) Hemoglobin 14.8 g/dL (13.0-17.5) Hematocrit 41.3 % (39.0-53.0) Mean Corpuscular Volume 91 fL (79-100) Mean Corpuscular Hemoglobin 33 pg (25-35) Mean Corpuscular Hemoglobin Concent 36 g/dL (31-37) Red Cell Distribution Width 12.6 % (11.5-14.5) Platelet Count 189 x10^3/uL (140-400) Neutrophils (%) (Auto) 61 % (31-73) Lymphocytes (%) (Auto) 27 % (24-48) Monocytes (%) (Auto) 10 % (0-9) H Eosinophils (%) (Auto) 2 % (0-3) Basophils (%) (Auto) 1 % (0-3) Neutrophils # (Auto) 4.3 x10^3uL (1.8-7.7) Lymphocytes # (Auto) 2.0 x10^3/uL (1.0-4.8) Monocytes # (Auto) 0.7 x10^3/uL (0.0-1.1) Eosinophils # (Auto) 0.1 x10^3/uL (0.0-0.7) Basophils # (Auto) 0.1 x10^3/uL (0.0-0.2) Sodium Level 137 mmol/L (136-145) Potassium Level 3.5 mmol/L (3.5-5.1) Chloride Level 99 mmol/L (98-107) Carbon Dioxide Level 24 mmol/L (21-32) Anion Gap 14 (6-14) Blood Urea Nitrogen 25 mg/dL (8-26) Creatinine 1.4 mg/dL (0.7-1.3) H Estimated GFR (Cockcroft-Gault) 62.8 BUN/Creatinine Ratio 18 (6-20) Glucose Level 89 mg/dL (70-99) Calcium Level 9.2 mg/dL (8.5-10.1) Total Bilirubin 2.1 mg/dL (0.2-1.0) H Aspartate Amino Transferase (AST) 43 U/L (15-37) H Alanine Aminotransferase (ALT) 61 U/L (16-63) Alkaline Phosphatase 96 U/L (46-116) Troponin I Quantitative 0.108 ng/mL (0.000-0.055) Total Protein 8.3 g/dL (6.4-8.2) H Albumin 4.3 g/dL (3.4-5.0) Albumin/Globulin Ratio 1.1 (1.0-1.7) Salicylates Level < 2.8 mg/dL (2.8-20.0) L Salicylate Last Dose Date Unk Salicylate Last Dose Time Unk Acetaminophen Level < 2 mcg/ml (10-30) L Acetaminophen Last Dose Date Unk Acetaminophen Last Dose Time Unk Ethyl Alcohol Level < 10 mg/dL (0-10) Laboratory Tests 01/04/19 19:32 Laboratory Tests 01/04/19 19:32 EKG EKG EKG shows normal sinus rhythm rate of 90 no acute ischemic changes noted interpreted by me the time of encounter.[] Radiology/Procedures Radiology/Procedures [] Course & Med Decision Making Course & Med Decision Making Pertinent Labs and Imaging studies reviewed. (See chart for details) []Polysubstance abuse most likely troponin is better than it was before WILL TREND. Patient a clean cardiac catheter last month I do not think that this is related to acs. Patient was seen by the PAt team [place] due to polysubstance abuse he has already looked into local resources for drug abuse and he was encouraged to go to his regular appointments. Patient was observed in the emergency room for several hours he appeared to be washing out from some sort of a stimulant. He had a significant amount of tweaking twitching behavior then he slept and he was unable to ambulate safely by our 5 we decided to admit him overnight for observ ation serial troponins and go from there. Possible further treatment of drug abuse. We try to cath him for drug screen but were un Able to Get a Urine Sample due to cooperation Will be admitted to the [facility] and [facility] Disclaimer Phyllis Disclaimer This electronic medical record was generated, in whole or in part, using a voice recognition dictation system. Departure Departure Impression: Primary Impression: Chronic pain of both knees Additional Impressions: Drug abuse Chest pain Disposition: ADMITTED INPATIENT Admitting Physician: AVILA Condition: STABLE Referrals: NO PCP (PCP) Scripts Amoxicillin/Potassium Clav (AUGMENTIN 875-125 TABLET) 1 Each Tablet 1 TAB PO BID, #14 TAB Prov: HELGA SOTO MD 01/04/19 Problem Qualifiers HELGA SOTO MD Jan 04, 2019 20:33
[2019-01-04] MEDS ORDERED: LIDO:MAALOX 1:1 20 ML SINGLE DOSE. SWSW ONE (21:30)
[2019-01-04] MEDS ORDERED: AMOX1TAB61 PO (21:46)
[2019-01-05] MEDS ORDERED: ASPIRIN CHEWABLE 81 MG TABLET. PO ONE ×2 (01:00→09:00)
[2019-01-05 01:50] VITALS: BP 125/80
--- NOTE | 2019-01-05 02:00 | NUR ---
Transfer of care. This scientific writer agrees with previous assessment.
[2019-01-05] MEDS ORDERED: QUET50TA PO (02:18)
[2019-01-05] MEDS ORDERED: AMLO5TAB10 PO (02:18)
[2019-01-05] MEDS ORDERED: ATOR20TA58 PO (02:18)
[2019-01-05] MEDS ORDERED: LISI10TA2 PO (02:18)
[2019-01-05] MEDS ORDERED: PANT40TA77 PO (02:18)
[2019-01-05] MEDS ORDERED: DULO60CA6 PO (02:18)
[2019-01-05] MEDS ORDERED: ALLO100T PO (02:18)
[2019-01-05] MEDS ORDERED: GABA300C18 PO (02:18)
[2019-01-05 03:20] VITALS: BP 129/87
--- NOTE | 2019-01-05 03:25 | NUR ---
Pt admitted during the noc, very lethargic only responding when calling his name. Pt given ativan in Ed. Will continue to monitor. Vitals are within normal limits and pt continues on monitor at this time. Report given to oncoming nurse this am.
[2019-01-05 07:00] VITALS: BP 131/87
--- NOTE | 2019-01-05 07:46 | EKG ---
[facility] [address] [place] [address] Test Date: 2019-01-04 Test Time: 19:28:04 Pat Name: JONEL GUAJARDO Department: Room: Gender: M Appraiser: TREY : 1960 Requested By: HELGA SOTO Order Number: [id number] Reading MD: Measurements Intervals [place] Rate: 90 P: 48 CA: 160 QRS: 27 QRSD: 118 T: 57 QT: 364 QTc: 449 Interpretive Statements SINUS RHYTHM QRS(T) CONTOUR ABNORMALITY CONSIDER ANTEROLATERAL MYOCARDIAL DAMAGE POSSIBLY ABNORMAL ECG RI6.01 Unconfirmed report No previous ECG available for comparison
--- NOTE | 2019-01-05 09:27 | CARD ---
MR#: [id number] Date of Study: 01/05/2019 Ordering Physician: SHARAN KUHN, Referring Physician: DAVID VAUGHN Tech: Regina Johns [facility] APPROVED REPORT EXAM: LIMITED Two-dimensional and M-mode echocardiogram. Other Information Quality : Technically LimitedHR: 90bpm Rhythm : NSRTechnically limited study due to uncooperative patient. INDICATION Dyspnea 2D DIMENSIONS RVDd2.9 (2.9-3.5cm)IVSd1.4 (0.7-1.1cm) LVDd3.5 (3.9-5.9cm)PWd1.0 (0.7-1.1cm) LVDs2.5 (2.5-4.0cm)FS (%) 28.9 % SV29.1 mlLVEF(%)56.6 (>50%) Tricuspid Valve TR P. [id number]/[id number] [id number] TR Peak [id number] LEFT VENTRICLE The left ventricle is normal size. There is normal left ventricular wall thickness. The left ventricu lar systolic function is normal. The Ejection Fraction is 55-60%. There is normal LV segmental wall m otion. RIGHT VENTRICLE The right ventricle is normal size. There is normal right ventricular wall thickness. The right ventr icular systolic function is normal. ATRIA The left atrium size is normal. The right atrium size is normal. The interatrial septum is intact wit h no evidence for an atrial septal defect or patent foramen ovale as noted on 2-D or Doppler imaging. AORTIC VALVE The aortic valve was not assessed. MITRAL VALVE The mitral valve is not well visualized. TRICUSPID VALVE The tricuspid valve is normal in structure and function. Doppler and Color Flow revealed trace tricus pid regurgitation. The PA pressure was estimated at 37 mmHg. There is no tricuspid valve prolapse or vegetation. There is no tricuspid valve stenosis. PULMONIC VALVE The pulmonic valve is not well visualized. GREAT VESSELS The aortic root is normal in size. The ascending aorta is normal in size. The IVC was not visualized. PERICARDIAL EFFUSION There is no evidence of significant pericardial effusion. Critical Notification Critical Value: No <Conclusion> Limited and technically difficult study. The left ventricular systolic function is normal. The Ejection Fraction is 55-60%. There is normal LV segmental wall motion. There is no evidence of significant pericardial effusion. Signed by : Devante Ott, Electronically Approved : 01/05/2019 09:27:28
--- NOTE | 2019-01-05 10:46 | NUR ---
CARISA following pt for dc planning. Chart reviewed and discussed with RN. Pt is admitted for drug abuse, ETOH use. CARISA phoned PAT team for assessment and evaluation. Renea will come in to see pt today.
[2019-01-05 10:55] LABS: BARBITURATES NEG (NEG); BENZODIAZEPINES NEG (NEG); CANNABINOIDS NEG (NEG); COCAINE POS (NEG); METHADONE NEG (NEG); OPIATES NEG (NEG); PHENCYCLIDINE NEG (NEG)
[2019-01-05 10:59] LABS: AMPHETAMINE/METHAMPHETAMINE NEG (NEG)
[2019-01-05 11:00] VITALS: BP 121/74
[2019-01-05] MEDS: BENZOCAINE 10% ORAL GEL 7GM TUBE. TP PRN ×2 (12:18→17:05)
[2019-01-05] MEDS: DULoxetine HCL 30 MG CAPSULE.DR PO SCH (12:19)
[2019-01-05] MEDS: amLODIPine BESYLATE 5 MG TABLET PO SCH (12:20)
[2019-01-05] MEDS: MELOXICAM 7.5 MG TABLET PO SCH (12:21)
[2019-01-05] MEDS: ALLOPURINOL 100 MG TABLET. PO SCH (12:22)
[2019-01-05] MEDS: PANTOPRAZOLE 40 MG TABLET.DR. PO SCH (12:22)
[2019-01-05] MEDS: DICLOFENAC SODIUM 1% TOPICAL GEL 100GM TUBE. TP SCH ×3 (12:24→21:25)
--- NOTE | 2019-01-05 12:38 | PDOC1 ---
History and Physical Date of Admission: Date of Admission DATE: 01/05/19 TIME: 12:32 Chief Complaint: Problems: (1) Drug abuse (2) Chest pain (3) Chronic pain of both knees Chief Complain: Chest pain after using cocaine and multiple other drugs according to the patient Abdominal pain as well as sore throat scratchy throat some chest wall pain worse with palpation Leg pain twitching and anxiety Drug abuse BPH Hypertension Degenerative joint disease of the knees Depression and anxiety Hyperlipidemia GERD History of Present Illness: HPI: This is a 58-year-old male who states he was partying a lot yesterday drink a lot of alcohol and took as many drugs as he could take according to him Indeed he is now cocaine positive His troponin has bumped up Suspect he has a heart attack He has associated anxiety and twitching overall appears to be withdrawing Rates his symptoms at 10 out 10 States he also needs bilateral knee replacements in his knees hurt Worse with movement and better sitting still Described as irritating I discussed the case with the ER physician were going to admit the patient and consult cardiology Past Medical/Surgical History: PMH/PSH: Drug abuse BPH Hypertension Degenerative joint disease of the knees Depression and anxiety Hyperlipidemia GERD Allergies: Allergies: Coded Allergies: No Known Drug Allergies (Unverified , 09/28/18) Family History: Family History: Hypertension Social History: Social Hisoty: He drinks smokes and takes drugs states he doesn't work Current Medications: Current Medications Current Medications Lorazepam (Ativan Inj) 1 mg 1X ONCE IV Last administered on 01/04/19at 19:41; Start 01/04/19 at 19:30; Stop 01/04/19 at 19:31; Status DC Benzocaine (Ora-Jel) 1 jil 1X STAT TP Last administered on 01/04/19at 19:59; Start 01/04/19 at 19:51; Stop 01/04/19 at 19:55; Status DC Diphenhydramine HCl (Benadryl) 25 mg 1X ONCE IVP Last administered on 01/04/19at 20:25; Start 01/04/19 at 20:30; Stop 01/04/19 at 20:31; Status DC Multi-Ingredient Mouthwash/Gargle (Gi Cocktail) 20 ml 1X ONCE SWSW Last administered on 01/04/19at 22:29; Start 01/04/19 at 21:30; Stop 01/04/19 at 21:31; Status DC Lorazepam (Ativan Inj) 1 mg 1X ONCE IV Last administered on 01/04/19at 22:29; Start 01/04/19 at 22:00; Stop 01/04/19 at 22:01; Status DC Aspirin (Children'S Aspirin) 324 mg 1X ONCE PO ; Start 01/05/19 at 01:00; Stop 01/05/19 at 01:57; Status DC Aspirin (Children'S Aspirin) 324 mg 1X ONCE PO ; Start 01/05/19 at 09:00; Stop 01/05/19 at 09:01; Status DC Benzocaine (Ora-Jel) 1 jil PRN QID PRN TP ORAL PAIN Last administered on 01/05/19at 12:18; Start 01/05/19 at 11:15 Allopurinol (Zyloprim) 100 mg DAILY PO Last administered on 01/05/19at 12:22; Start 01/05/19 at 12:00 Amlodipine Besylate (Norvasc) 5 mg DAILY PO Last administered on 01/05/19at 12:20; Start 01/05/19 at 12:00 Amoxicillin/ Clavulanate Potassium (Augmentin 875/ 125mg) 1 tab BID PO ; Start 01/05/19 at 21:00 Atorvastatin Calcium (Lipitor) 20 mg QHS PO ; Start 01/05/19 at 21:00 Diclofenac Sodium (Voltaren) 1 jil QID TP Last administered on 01/05/19at 12:24; Start 01/05/19 at 13:00 Gabapentin (Neurontin) 300 mg TID PO ; Start 01/05/19 at 14:00 Pantoprazole Sodium (Protonix) 40 mg DAILYAC PO Last administered on 01/05/19at 12:22; Start 01/05/19 at 12:00 Tamsulosin HCl (Flomax) 0.8 mg HS PO ; Start 01/05/19 at 21:00 Duloxetine HCl (Cymbalta) 60 mg DAILY PO Last administered on 01/05/19at 12:19; Start 01/05/19 at 12:00 Meloxicam (Mobic) 15 mg DAILY PO Last administered on 01/05/19at 12:21; Start 01/05/19 at 12:00 Quetiapine Fumarate (SEROquel) 50 mg QHS PO ; Start 01/05/19 at 21:00 Active Scripts Active Augmentin 875-125 Tablet (Amoxicillin/Potassium Clav) 1 Each Tablet 1 Tab PO BID Voltaren (Diclofenac Sodium) 100 Gm Gel..gram. 1 Gm TP QID 30 Days Mobic (Meloxicam) 15 Mg Tablet 1 Tab PO DAILY 30 Days Reported Quetiapine Fumarate 50 Mg Tablet 50 Mg PO HS Atorvastatin Calcium 20 Mg Tablet 1 Tab PO DAILY Allopurinol 100 Mg Tablet 1 Tab PO DAILY Amlodipine Besylate 5 Mg Tablet 5 Mg PO DAILY Lisinopril 10 Mg Tablet 1 Tab PO DAILY Protonix (Pantoprazole Sodium) 40 Mg Tablet.dr 40 Mg PO DAILYAC Cymbalta (Duloxetine Hcl) 60 Mg Capsule.dr 1 Cap PO DAILY Gabapentin (Gabapentin) 300 Mg Capsule 300 Mg PO TID Flomax (Tamsulosin Hcl) 0.4 Mg Cap.er.24h 0.8 Mg PO HS ROS: Review of Systems Review of System REVIEW OF SYSTEMS: GENERAL: Complains of twitching and anxiety SKIN: No bruising, hair changes or rashes. EYES: No blurred, double or loss of vision. NOSE AND THROAT: No history of nosebleeds, hoarseness or sore throat. HEART: Complains of chest pain LUNGS: Denies cough, hemoptysis, wheezing or shortness of breath. GASTROINTESTINAL: Denies changes in appetite, nausea, vomiting, diarrhea or constipation. GENITOURINARY: No history of frequency, urgency, hesitancy or nocturia. NEUROLOGIC: Veins of weakness PSYCHIATRIC: No history of panic, anxiety or depression. ENDOCRINE: No history of heat or cold intolerance, polyuria or polydipsia. EXTREMITIES: Complains of bilateral knee pain Physical Exam: Vital Signs: Vital Signs Date Time Temp Pulse Resp B/P (MAP) Pulse Ox O2 Delivery O2 Flow Rate FiO2 01/05/19 12:20 94 121/74 01/05/19 11:00 98.2 18 98 Room Air 98.2 Physcial Exam: GEN.: He just woke up and appears to be withdrawing he is frantically eating butter crackers twitching very jittery HEENT: Head is normocephalic, atraumatic NECK: Supple, no JVD LUNGS: Clear to auscultation without rhonchi or wheezing HEART: RRR, S1, S2 present. Peripheral pulses intact ABDOMEN: Soft, nontender. Positive bowel sounds no organomegaly EXTREMITIES: Both knees are swollen and tender to palpation NEUROLOGIC: Very jittery and impulsive PSYCHIATRIC: Family anxious SKIN: No ulcerations or rashes VASCULAR: Good capillary refill Labs: Labs: Laboratory Tests Test 01/04/19 19:32 01/05/19 03:45 01/05/19 06:38 01/05/19 10:20 White Blood Count 7.1 x10^3/uL (4.0-11.0) Red Blood Count 4.52 x10^6/uL (4.30-5.70) Hemoglobin 14.8 g/dL (13.0-17.5) Hematocrit 41.3 % (39.0-53.0) Mean Corpuscular Volume 91 fL (79-100) Mean Corpuscular Hemoglobin 33 pg (25-35) Mean Corpuscular Hemoglobin Concent 36 g/dL (31-37) Red Cell Distribution Width 12.6 % (11.5-14.5) Platelet Count 189 x10^3/uL (140-400) Neutrophils (%) (Auto) 61 % (31-73) Lymphocytes (%) (Auto) 27 % (24-48) Monocytes (%) (Auto) 10 % (0-9) Eosinophils (%) (Auto) 2 % (0-3) Basophils (%) (Auto) 1 % (0-3) Neutrophils # (Auto) 4.3 x10^3uL (1.8-7.7) Lymphocytes # (Auto) 2.0 x10^3/uL (1.0-4.8) Monocytes # (Auto) 0.7 x10^3/uL (0.0-1.1) Eosinophils # (Auto) 0.1 x10^3/uL (0.0-0.7) Basophils # (Auto) 0.1 x10^3/uL (0.0-0.2) Sodium Level 137 mmol/L (136-145) Potassium Level 3.5 mmol/L (3.5-5.1) Chloride Level 99 mmol/L (98-107) Carbon Dioxide Level 24 mmol/L (21-32) Anion Gap 14 (6-14) Blood Urea Nitrogen 25 mg/dL (8-26) Creatinine 1.4 mg/dL (0.7-1.3) Estimated GFR (Cockcroft-Gault) 62.8 BUN/Creatinine Ratio 18 (6-20) Glucose Level 89 mg/dL (70-99) Calcium Level 9.2 mg/dL (8.5-10.1) Total Bilirubin 2.1 mg/dL (0.2-1.0) Aspartate Amino Transf (AST/SGOT) 43 U/L (15-37) Alanine Aminotransferase (ALT/SGPT) 61 U/L (16-63) Alkaline Phosphatase 96 U/L (46-116) Troponin I Quantitative 0.108 ng/mL (0.000-0.055) 0.156 ng/mL (0.000-0.055) 0.129 ng/mL (0.000-0.055) Total Protein 8.3 g/dL (6.4-8.2) Albumin 4.3 g/dL (3.4-5.0) Albumin/Globulin Ratio 1.1 (1.0-1.7) Salicylates Level < 2.8 mg/dL (2.8-20.0) Salicylate Last Dose Date Unk Salicylate Last Dose Time Unk Acetaminophen Level < 2 mcg/ml (10-30) Acetaminophen Last Dose Date Unk Acetaminophen Last Dose Time Unk Ethyl Alcohol Level < 10 mg/dL (0-10) Urine Opiates Screen Neg (NEG) Urine Methadone Screen Neg (NEG) Urine Barbiturates Neg (NEG) Urine Phencyclidine Screen Neg (NEG) Urine Amphetamine/Methamphetamine Neg (NEG) Urine Benzodiazepines Screen Neg (NEG) Urine Cocaine Screen Pos (NEG) Urine Cannabinoids Screen Neg (NEG) Urine Ethyl Alcohol Neg (NEG) Laboratory Tests Test 01/04/19 19:32 01/05/19 03:45 01/05/19 06:38 01/05/19 10:20 White Blood Count 7.1 x10^3/uL (4.0-11.0) Red Blood Count 4.52 x10^6/uL (4.30-5.70) Hemoglobin 14.8 g/dL (13.0-17.5) Hematocrit 41.3 % (39.0-53.0) Mean Corpuscular Volume 91 fL (79-100) Mean Corpuscular Hemoglobin 33 pg (25-35) Mean Corpuscular Hemoglobin Concent 36 g/dL (31-37) Red Cell Distribution Width 12.6 % (11.5-14.5) Platelet Count 189 x10^3/uL (140-400) Neutrophils (%) (Auto) 61 % (31-73) Lymphocytes (%) (Auto) 27 % (24-48) Monocytes (%) (Auto) 10 % (0-9) Eosinophils (%) (Auto) 2 % (0-3) Basophils (%) (Auto) 1 % (0-3) Neutrophils # (Auto) 4.3 x10^3uL (1.8-7.7) Lymphocytes # (Auto) 2.0 x10^3/uL (1.0-4.8) Monocytes # (Auto) 0.7 x10^3/uL (0.0-1.1) Eosinophils # (Auto) 0.1 x10^3/uL (0.0-0.7) Basophils # (Auto) 0.1 x10^3/uL (0.0-0.2) Sodium Level 137 mmol/L (136-145) Potassium Level 3.5 mmol/L (3.5-5.1) Chloride Level 99 mmol/L (98-107) Carbon Dioxide Level 24 mmol/L (21-32) Anion Gap 14 (6-14) Blood Urea Nitrogen 25 mg/dL (8-26) Creatinine 1.4 mg/dL (0.7-1.3) Estimated GFR (Cockcroft-Gault) 62.8 BUN/Creatinine Ratio 18 (6-20) Glucose Level 89 mg/dL (70-99) Calcium Level 9.2 mg/dL (8.5-10.1) Total Bilirubin 2.1 mg/dL (0.2-1.0) Aspartate Amino Transf (AST/SGOT) 43 U/L (15-37) Alanine Aminotransferase (ALT/SGPT) 61 U/L (16-63) Alkaline Phosphatase 96 U/L (46-116) Troponin I Quantitative 0.108 ng/mL (0.000-0.055) 0.156 ng/mL (0.000-0.055) 0.129 ng/mL (0.000-0.055) Total Protein 8.3 g/dL (6.4-8.2) Albumin 4.3 g/dL (3.4-5.0) Albumin/Globulin Ratio 1.1 (1.0-1.7) Salicylates Level < 2.8 mg/dL (2.8-20.0) Salicylate Last Dose Date Unk Salicylate Last Dose Time Unk Acetaminophen Level < 2 mcg/ml (10-30) Acetaminophen Last Dose Date Unk Acetaminophen Last Dose Time Unk Ethyl Alcohol Level < 10 mg/dL (0-10) Urine Opiates Screen Neg (NEG) Urine Methadone Screen Neg (NEG) Urine Barbiturates Neg (NEG) Urine Phencyclidine Screen Neg (NEG) Urine Amphetamine/Methamphetamine Neg (NEG) Urine Benzodiazepines Screen Neg (NEG) Urine Cocaine Screen Pos (NEG) Urine Cannabinoids Screen Neg (NEG) Urine Ethyl Alcohol Neg (NEG) Images: Images Chest x-ray within normal limits Assessment/Plan Assessment/Plan Elevated troponin Chest pain after using cocaine and multiple other drugs according to the patient Abdominal pain as well as sore throat scratchy throat some chest wall pain worse with palpation Leg pain twitching and anxiety Drug abuse BPH Hypertension Degenerative joint disease of the knees Depression and anxiety Hyperlipidemia GERD Plan Consult cardiology Serial enzymes Serial EKGs Cardiac monitoring DVT prophylaxis Home meds Psychiatric assessment team consultation JI SERRANO III DO Jan 05, 2019 12:38
--- NOTE | 2019-01-05 13:23 | PDOC2 ---
SHARAN KUHN CHIP MACHINE OPERATOR 01/05/19 1323: CARDIAC CONSULT DATE OF CONSULT Date of Consult DATE: 01/05/19 TIME: 13:08 REASON FOR CONSULT Reason for Consult: Elevated troponin REFERRING PHYSICIAN Referring Physician: Troponin SOURCE Source: Chart review, Patient HISTORY OF PRESENT ILLNESS HISTORY OF PRESENT ILLNESS This is a 58 yo AA male admitted for complains of chest pain. This is reproducible. Also he has disclosed that he has been using drugs but could not recall and he is restless in bed and could not carry out straight conversation but not in pain. Complaining he is being stabbed in his abdomen. He is alert Ox3. No noted falls or any recent injury. No SOA. Verbalized that he drinks ETOH a lot. PAST MEDICAL HISTORY Past Medical History Cardiovascular: HTN, Hyperlipidemia CENTRAL NERVOUS SYSTEM: CVA GI: GERD Psych: Other (heavy alcoholism) Musculoskeletal: Osteoarthritis Rheumatologic: Gout Renal/: Benign prostatic enlarg, right renal cyst PAST SURGICAL HISTORY Past Surgical History: Appendectomy, Arthroscopy (left ankle), Other ([facility]) FAMILY HISTORY Family History: Family History Unknown SOCIAL HISTORY Social History Smoke: No ALCOHOL: heavy (gin and beer) Drugs: Cocaine Lives: Alone (homeless detention) CURRENT MEDICATIONS CURRENT MEDICATIONS Current Medications Medications (Trade) Dose Ordered Sig/Luis Eduardo Route PRN Reason Start Time Stop Time Status Last Admin Dose Admin Lorazepam (Ativan Inj) 1 mg 1X ONCE IV 01/04/19 19:30 01/04/19 19:31 DC 01/04/19 19:41 Benzocaine (Ora-Jel) 1 jil 1X STAT TP 01/04/19 19:51 01/04/19 19:55 DC 01/04/19 19:59 Diphenhydramine HCl (Benadryl) 25 mg 1X ONCE IVP 01/04/19 20:30 01/04/19 20:31 DC 01/04/19 20:25 Multi-Ingredient Mouthwash/Gargle (Gi Cocktail) 20 ml 1X ONCE SWSW 01/04/19 21:30 01/04/19 21:31 DC 01/04/19 22:29 Lorazepam (Ativan Inj) 1 mg 1X ONCE IV 01/04/19 22:00 01/04/19 22:01 DC 01/04/19 22:29 Benzocaine (Ora-Jel) 1 jil PRN QID PRN TP ORAL PAIN 01/05/19 11:15 01/05/19 12:18 Allopurinol (Zyloprim) 100 mg DAILY PO 01/05/19 12:00 01/05/19 12:22 Amlodipine Besylate (Norvasc) 5 mg DAILY PO 01/05/19 12:00 01/05/19 12:20 Diclofenac Sodium (Voltaren) 1 jil QID TP 01/05/19 13:00 01/05/19 12:24 Pantoprazole Sodium (Protonix) 40 mg DAILYAC PO 01/05/19 12:00 01/05/19 12:22 Duloxetine HCl (Cymbalta) 60 mg DAILY PO 01/05/19 12:00 01/05/19 12:19 Meloxicam (Mobic) 15 mg DAILY PO 01/05/19 12:00 01/05/19 12:21 ALLERGIES ALLERGIES: Coded Allergies: No Known Drug Allergies (Unverified , 09/28/18) ROS Review of System limited, pt is restless PHYSICAL EXAM General: Alert, Oriented X3, No acute distress, Other (appears restless) HEENT: Atraumatic, Mucous membr. moist/pink Heart: Regular rate (SR/ST), Normal S1, Normal S2, No murmurs Abdomen: Soft, No tenderness Extremities: No cyanosis, No edema Skin: No breakdown, No significant lesion Neuro: Sensation intact, Other (tangential answers to questions at times) Psych/Mental Status: Other (irritable. ) MUSCULOSKELETAL: Osteoarthritic changes both hands VITALS VITALS Vital Signs Date Time Temp Pulse Resp B/P (MAP) Pulse Ox O2 Delivery O2 Flow Rate FiO2 01/05/19 12:20 94 121/74 01/05/19 11:00 98.2 18 98 Room Air 98.2 LABS Lab: Laboratory Tests Test 01/04/19 19:32 01/05/19 03:45 01/05/19 06:38 01/05/19 10:20 White Blood Count 7.1 x10^3/uL (4.0-11.0) Red Blood Count 4.52 x10^6/uL (4.30-5.70) Hemoglobin 14.8 g/dL (13.0-17.5) Hematocrit 41.3 % (39.0-53.0) Mean Corpuscular Volume 91 fL (79-100) Mean Corpuscular Hemoglobin 33 pg (25-35) Mean Corpuscular Hemoglobin Concent 36 g/dL (31-37) Red Cell Distribution Width 12.6 % (11.5-14.5) Platelet Count 189 x10^3/uL (140-400) Neutrophils (%) (Auto) 61 % (31-73) Lymphocytes (%) (Auto) 27 % (24-48) Monocytes (%) (Auto) 10 % (0-9) Eosinophils (%) (Auto) 2 % (0-3) Basophils (%) (Auto) 1 % (0-3) Neutrophils # (Auto) 4.3 x10^3uL (1.8-7.7) Lymphocytes # (Auto) 2.0 x10^3/uL (1.0-4.8) Monocytes # (Auto) 0.7 x10^3/uL (0.0-1.1) Eosinophils # (Auto) 0.1 x10^3/uL (0.0-0.7) Basophils # (Auto) 0.1 x10^3/uL (0.0-0.2) Sodium Level 137 mmol/L (136-145) Potassium Level 3.5 mmol/L (3.5-5.1) Chloride Level 99 mmol/L (98-107) Carbon Dioxide Level 24 mmol/L (21-32) Anion Gap 14 (6-14) Blood Urea Nitrogen 25 mg/dL (8-26) Creatinine 1.4 mg/dL (0.7-1.3) Estimated GFR (Cockcroft-Gault) 62.8 BUN/Creatinine Ratio 18 (6-20) Glucose Level 89 mg/dL (70-99) Calcium Level 9.2 mg/dL (8.5-10.1) Total Bilirubin 2.1 mg/dL (0.2-1.0) Aspartate Amino Transf (AST/SGOT) 43 U/L (15-37) Alanine Aminotransferase (ALT/SGPT) 61 U/L (16-63) Alkaline Phosphatase 96 U/L (46-116) Troponin I Quantitative 0.108 ng/mL (0.000-0.055) 0.156 ng/mL (0.000-0.055) 0.129 ng/mL (0.000-0.055) Total Protein 8.3 g/dL (6.4-8.2) Albumin 4.3 g/dL (3.4-5.0) Albumin/Globulin Ratio 1.1 (1.0-1.7) Salicylates Level < 2.8 mg/dL (2.8-20.0) Salicylate Last Dose Date Unk Salicylate Last Dose Time Unk Acetaminophen Level < 2 mcg/ml (10-30) Acetaminophen Last Dose Date Unk Acetaminophen Last Dose Time Unk Ethyl Alcohol Level < 10 mg/dL (0-10) Urine Opiates Screen Neg (NEG) Urine Methadone Screen Neg (NEG) Urine Barbiturates Neg (NEG) Urine Phencyclidine Screen Neg (NEG) Urine Amphetamine/Methamphetamine Neg (NEG) Urine Benzodiazepines Screen Neg (NEG) Urine Cocaine Screen Pos (NEG) Urine Cannabinoids Screen Neg (NEG) Urine Ethyl Alcohol Neg (NEG) ECHOCARDIOGRAM ECHOCARDIOGRAM <Conclusion> The left ventricle is normal size. The left ventricular systolic function is normal and the ejection fraction is within normal range. The ejection fraction is 55-60%. There is no significant aortic valvular stenosis. Doppler and Color Flow revealed no significant aortic regurgitation. Doppler and Color Flow revealed trace mitral valve regurgitation. Doppler and Color Flow revealed no tricuspid valve regurgitation noted. DATE: 11/03/18 1222 HEART CATH HEART CATH FINDINGS 1. Hemodynamics: Left ventricular end-diastolic pressure of 5 mmHg. No pullback gradient across the aortic valve. 2. Left ventriculography: Normal left ventricle systolic function with ejection fraction estimated at 60%. No significant mitral regurgitation seen. 3. Coronary angiography: a. The left main coronary artery arose from the left sinus of Valsalva, gave rise to the left anterior descending and left circumflex arteries and did not show any significant stenosis. b. The left anterior descending artery did not show any significant stenosis. c. The left circumflex artery did not show any significant stenosis. d. The right coronary artery was a large and dominant vessel arising from the right sinus of Valsalva that did not show any significant stenosis. Conclusion 1. No significant coronary artery disease 2. Normal left ventricualar systolic function with ejection fraction estimated at 60%. Recommendations Patient's non-STEMI is most probably type 2/demand ischemia Cardiovascular risk factor modification DATE: 11/03/18 1309 ASSESSMENT/PLAN ASSESSMENT/PLAN 1. Atypical CP: vasopasm component with continued cocaine use is possible but this most likely MSK 2. Substance abuse: UDS+ cocaine. 3. ETOH abuse 4. Elevated troponin: peaked at 0.15, no EKG acute changes. Demand mediated with substance abuse noted above. Recent LHC as noted above with no CAD. 5. Tobaccoism 6. Reactive sinus tach Recommendations 1. limited TTE. 2. SS- homeless 3. Smoking, ETOH and cocaine cessation 4. No further cardiac workup. 5. Discussed with staff, need CIWA protocol, ETOH withdrawal protocol per PCP GLENYS SAMS MD 01/05/19 1602: CARDIAC CONSULT ASSESSMENT/PLAN ASSESSMENT/PLAN Patient seen and examined. Agree with FORMWORK CARPENTER's assessment and plan. Chest pain with atypical features and most probably musculoskeletal. Slightly elevated troponin level probably demand ischemia/cocaine induced vasospasm. Recent cardiac catheterization did not show any significant coronary artery disease. Limited 2-D echo cardiac showed normal LV function without any wall motion abnormalities. No further cardiac workup is indicated at this time. Thank you for your consultation. SHARAN KUHN APRN Jan 05, 2019 13:23 GLENYS SAMS MD Jan 05, 2019 16:02
--- NOTE | 2019-01-05 14:23 | NUR ---
SW following pt. Pt seen by PAT team and has CM services through [facility] for mental health/housing. Pt is homeless and lives out of his car but has been staying with his friend. Pt plans to return to his car upon dc and possibly stay with his friend. Per Renea, pt has not been taking his mental health meds consistently but she had contacted his [facility] CM to assist with outpatient treatment.
[2019-01-05 15:00] VITALS: BP 149/96
[2019-01-05] MEDS: GABAPENTIN 300 MG CAPSULE. PO SCH ×2 (17:04→21:24)
[2019-01-05 19:42] VITALS: BP 125/92
[2019-01-05] MEDS: QUEtiapine 25 MG TABLET. PO SCH (21:24)
[2019-01-05] MEDS: ATORVASTATIN CALCIUM 20 MG TABLET PO SCH (21:25)
[2019-01-05] MEDS: AMOXICILLIN/K CLAV 875/125MG TABLET. PO SCH (21:25)
[2019-01-05] MEDS: TAMSULOSIN 0.4 MG CAP.ER.24H. PO SCH (21:25)
[2019-01-06] MEDS: BENZOCAINE/MENTHOL LOZENGE. PO PRN ×4 (03:37→20:50)
[2019-01-06 03:50] VITALS: BP 117/88
[2019-01-06 07:00] VITALS: BP 110/75
[2019-01-06] MEDS: PANTOPRAZOLE 40 MG TABLET.DR. PO SCH (08:52)
[2019-01-06] MEDS: amLODIPine BESYLATE 5 MG TABLET PO SCH (08:52)
[2019-01-06] MEDS: DULoxetine HCL 30 MG CAPSULE.DR PO SCH (08:52)
[2019-01-06] MEDS: AMOXICILLIN/K CLAV 875/125MG TABLET. PO SCH ×2 (08:52→20:51)
[2019-01-06] MEDS: MELOXICAM 7.5 MG TABLET PO SCH (08:52)
[2019-01-06] MEDS: DICLOFENAC SODIUM 1% TOPICAL GEL 100GM TUBE. TP SCH ×4 (08:53→20:52)
[2019-01-06] MEDS: ALLOPURINOL 100 MG TABLET. PO SCH (08:53)
[2019-01-06] MEDS: GABAPENTIN 300 MG CAPSULE. PO SCH ×3 (08:56→20:52)
--- NOTE | 2019-01-06 10:53 | PDOC ---
PROGRESS NOTES History of Present Illness History of Present Illness Images: Images Chest x-ray within normal limits Assessment/Plan Assessment/Plan Elevated troponin Chest pain after using cocaine and multiple other drugs according to the patient Abdominal pain as well as sore throat scratchy throat some chest wall pain worse with palpation Leg pain twitching and anxiety Drug abuse BPH Hypertension Degenerative joint disease of the knees Depression and anxiety Hyperlipidemia GERD Plan Consult cardiology Serial enzymes Serial EKGs Cardiac monitoring DVT prophylaxis Home meds Psychiatric assessment team consultation HEART CATH HEART CATH FINDINGS 1. Hemodynamics: Left ventricular end-diastolic pressure of 5 mmHg. No pullback gradient across the aortic valve. 2. Left ventriculography: Normal left ventricle systolic function with ejection fraction estimated at 60%. No significant mitral regurgitation seen. 3. Coronary angiography: a. The left main coronary artery arose from the left sinus of Valsalva, gave rise to the left anterior descending and left circumflex arteries and did not show any significant stenosis. b. The left anterior descending artery did not show any significant stenosis. c. The left circumflex artery did not show any significant stenosis. d. The right coronary artery was a large and dominant vessel arising from the right sinus of Valsalva that did not show any significant stenosis. Conclusion 1. No significant coronary artery disease 2. Normal left ventricualar systolic function with ejection fraction estimated at 60%. Recommendations Patient's non-STEMI is most probably type 2/demand ischemia Cardiovascular risk factor modification 38 MIN pt exam, chart review, > 50% of pt exam, chart review, pt care coordination Vitals Vitals Vital Signs Date Time Temp Pulse Resp B/P (MAP) Pulse Ox O2 Delivery O2 Flow Rate FiO2 01/06/19 08:52 88 110/75 01/06/19 07:30 Room Air 01/06/19 07:00 98.1 17 96 98.1 Physical Exam General: Alert, Oriented X3, Cooperative, No acute distress, Other (appears restless) Heart: Regular rate (SR/ST), Normal S1, Normal S2, No murmurs Lungs: Clear Abdomen: Soft, No tenderness Extremities: No cyanosis, No edema Skin: No breakdown, No significant lesion Labs LABS REASON: Short of breath PROCEDURE: PORTABLE CHEST 1V Chest AP portable at 1930: Reason for examination: Short of breath. Comparison is made to previous study dated 11/03/2018. The heart size is normal. Mediastinum is unremarkable. Lung corbett are clear. No acute bony abnormalities are seen. Impression: No acute cardiopulmonary disease. Electronically signed by: Amelia Khan MD (01/04/2019 8:08 PM) [facility] Assessment and Plan Assessmemt and Plan Problems Medical Problems: (1) Chronic pain of both knees Status: Acute (2) Drug abuse Status: Acute Comment Review of Relevant I have reviewed the following items prachi (where applicable) has been applied. Labs Laboratory Tests Test 01/04/19 19:32 01/05/19 03:45 01/05/19 06:38 01/05/19 10:20 White Blood Count 7.1 x10^3/uL (4.0-11.0) Red Blood Count 4.52 x10^6/uL (4.30-5.70) Hemoglobin 14.8 g/dL (13.0-17.5) Hematocrit 41.3 % (39.0-53.0) Mean Corpuscular Volume 91 fL (79-100) Mean Corpuscular Hemoglobin 33 pg (25-35) Mean Corpuscular Hemoglobin Concent 36 g/dL (31-37) Red Cell Distribution Width 12.6 % (11.5-14.5) Platelet Count 189 x10^3/uL (140-400) Neutrophils (%) (Auto) 61 % (31-73) Lymphocytes (%) (Auto) 27 % (24-48) Monocytes (%) (Auto) 10 % (0-9) Eosinophils (%) (Auto) 2 % (0-3) Basophils (%) (Auto) 1 % (0-3) Neutrophils # (Auto) 4.3 x10^3uL (1.8-7.7) Lymphocytes # (Auto) 2.0 x10^3/uL (1.0-4.8) Monocytes # (Auto) 0.7 x10^3/uL (0.0-1.1) Eosinophils # (Auto) 0.1 x10^3/uL (0.0-0.7) Basophils # (Auto) 0.1 x10^3/uL (0.0-0.2) Sodium Level 137 mmol/L (136-145) Potassium Level 3.5 mmol/L (3.5-5.1) Chloride Level 99 mmol/L (98-107) Carbon Dioxide Level 24 mmol/L (21-32) Anion Gap 14 (6-14) Blood Urea Nitrogen 25 mg/dL (8-26) Creatinine 1.4 mg/dL (0.7-1.3) Estimated GFR (Cockcroft-Gault) 62.8 BUN/Creatinine Ratio 18 (6-20) Glucose Level 89 mg/dL (70-99) Calcium Level 9.2 mg/dL (8.5-10.1) Total Bilirubin 2.1 mg/dL (0.2-1.0) Aspartate Amino Transf (AST/SGOT) 43 U/L (15-37) Alanine Aminotransferase (ALT/SGPT) 61 U/L (16-63) Alkaline Phosphatase 96 U/L (46-116) Troponin I Quantitative 0.108 ng/mL (0.000-0.055) 0.156 ng/mL (0.000-0.055) 0.129 ng/mL (0.000-0.055) Total Protein 8.3 g/dL (6.4-8.2) Albumin 4.3 g/dL (3.4-5.0) Albumin/Globulin Ratio 1.1 (1.0-1.7) Salicylates Level < 2.8 mg/dL (2.8-20.0) Salicylate Last Dose Date Unk Salicylate Last Dose Time Unk Acetaminophen Level < 2 mcg/ml (10-30) Acetaminophen Last Dose Date Unk Acetaminophen Last Dose Time Unk Ethyl Alcohol Level < 10 mg/dL (0-10) Urine Opiates Screen Neg (NEG) Urine Methadone Screen Neg (NEG) Urine Barbiturates Neg (NEG) Urine Phencyclidine Screen Neg (NEG) Urine Amphetamine/Methamphetamine Neg (NEG) Urine Benzodiazepines Screen Neg (NEG) Urine Cocaine Screen Pos (NEG) Urine Cannabinoids Screen Neg (NEG) Urine Ethyl Alcohol Neg (NEG) Medications Current Medications Lorazepam (Ativan Inj) 1 mg 1X ONCE IV Last administered on 01/04/19at 19:41; Start 01/04/19 at 19:30; Stop 01/04/19 at 19:31; Status DC Benzocaine (Ora-Jel) 1 jil 1X STAT TP Last administered on 01/04/19at 19:59; Start 01/04/19 at 19:51; Stop 01/04/19 at 19:55; Status DC Diphenhydramine HCl (Benadryl) 25 mg 1X ONCE IVP Last administered on 01/04/19 20:25; Start 01/04/19 at 20:30; Stop 01/04/19 at 20:31; Status DC Multi-Ingredient Mouthwash/Gargle (Gi Cocktail) 20 ml 1X ONCE SWSW Last administered on 01/04/19 22:29; Start 01/04/19 at 21:30; Stop 01/04/19 at 21:31; Status DC Lorazepam (Ativan Inj) 1 mg 1X ONCE IV Last administered on 01/04/19 22:29; Start 01/04/19 at 22:00; Stop 01/04/19 at 22:01; Status DC Aspirin (Children'S Aspirin) 324 mg 1X ONCE PO ; Start 01/05/19 at 01:00; Stop 01/05/19 at 01:57; Status DC Aspirin (Children'S Aspirin) 324 mg 1X ONCE PO ; Start 01/05/19 at 09:00; Stop 01/05/19 at 09:01; Status DC Benzocaine (Ora-Jel) 1 jil PRN QID PRN TP ORAL PAIN Last administered on 01/05/19 17:05; Start 01/05/19 at 11:15 Allopurinol (Zyloprim) 100 mg DAILY PO Last administered on 01/06/19 08:53; Start 01/05/19 at 12:00 Amlodipine Besylate (Norvasc) 5 mg DAILY PO Last administered on 01/06/19 08:52; Start 01/05/19 at 12:00 Amoxicillin/ Clavulanate Potassium (Augmentin 875/ 125mg) 1 tab BID PO Last administered on 01/06/19 08:52; Start 01/05/19 at 21:00 Atorvastatin Calcium (Lipitor) 20 mg QHS PO Last administered on 01/05/19 21:25; Start 01/05/19 at 21:00 Diclofenac Sodium (Voltaren) 1 jil QID TP Last administered on 01/06/19 08:53; Start 01/05/19 at 13:00 Gabapentin (Neurontin) 300 mg TID PO Last administered on 01/06/19 08:56; Start 01/05/19 at 14:00 Pantoprazole Sodium (Protonix) 40 mg DAILYAC PO Last administered on 01/06/19 08:52; Start 01/05/19 at 12:00 Tamsulosin HCl (Flomax) 0.8 mg HS PO Last administered on 01/05/19 21:25; Start 01/05/19 at 21:00 Duloxetine HCl (Cymbalta) 60 mg DAILY PO Last administered on 01/06/19 08:52; Start 01/05/19 at 12:00 Meloxicam (Mobic) 15 mg DAILY PO Last administered on 01/06/19 08:52; Start 01/05/19 at 12:00 Quetiapine Fumarate (SEROquel) 50 mg QHS PO Last administered on 01/05/19 21:24; Start 01/05/19 at 21:00 Throat Lozenges (Cepacol Sore Throat Lozenge) 1 henrry PRN Q2HRS PRN PO SORE THROAT Last administered on 01/06/19 08:52; Start 01/06/19 at 02:30 Active Scripts Active Augmentin 875-125 Tablet (Amoxicillin/Potassium Clav) 1 Each Tablet 1 Tab PO BID Voltaren (Diclofenac Sodium) 100 Gm Gel..gram. 1 Gm TP QID 30 Days Mobic (Meloxicam) 15 Mg Tablet 1 Tab PO DAILY 30 Days Reported Quetiapine Fumarate 50 Mg Tablet 50 Mg PO HS Atorvastatin Calcium 20 Mg Tablet 1 Tab PO DAILY Allopurinol 100 Mg Tablet 1 Tab PO DAILY Amlodipine Besylate 5 Mg Tablet 5 Mg PO DAILY Lisinopril 10 Mg Tablet 1 Tab PO DAILY Protonix (Pantoprazole Sodium) 40 Mg Tablet.dr 40 Mg PO DAILYAC Cymbalta (Duloxetine Hcl) 60 Mg Capsule.dr 1 Cap PO DAILY Gabapentin (Gabapentin) 300 Mg Capsule 300 Mg PO TID Flomax (Tamsulosin Hcl) 0.4 Mg Cap.er.24h 0.8 Mg PO HS Vitals/I & O Vital Sign - Last 24 Hours 01/05/19 01/05/19 01/05/19 01/05/19 11:00 12:20 15:00 19:42 Temp 98.2 97.5 97.7 98.2 97.5 97.7 Pulse 94 94 100 94 Resp 18 18 20 B/P (MAP) 121/74 (90) 121/74 149/96 (113) 125/92 (103) Pulse Ox 98 100 98 O2 Delivery Room Air Room Air Room Air 01/05/19 01/05/19 01/06/19 01/06/19 20:00 23:26 03:50 07:00 Temp 97.6 98.1 97.6 98.1 Pulse 79 88 Resp 20 20 17 B/P (MAP) 117/88 (98) 110/75 (87) Pulse Ox 98 96 O2 Delivery Room Air Room Air Room Air Room Air 01/06/19 01/06/19 07:30 08:52 Pulse 88 B/P (MAP) 110/75 O2 Delivery Room Air Intake and Output 01/05/19 01/05/19 01/06/19 14:59 22:59 06:59 Intake Total 980 ml Output Total 600 ml Balance 380 ml XIOMARA BURROUGHS MD Jan 06, 2019 10:53
[2019-01-06 11:00] VITALS: BP 97/66
[2019-01-06] MEDS: ACETAMINOPHEN 325 MG TABLET. PO PRN (13:41)
[2019-01-06 15:00] VITALS: BP 117/77
[2019-01-06 19:39] LABS: BILIRUBIN,URINE NEGATIVE (NEG); CLARITY,URINE CLEAR; COLOR,URINE YELLOW; NITRITE,URINE NEGATIVE (NEG); PROTEIN,URINE NEGATIVE (NEG-TRACE)
[2019-01-06 19:41] VITALS: BP 132/85
[2019-01-06 19:48] LABS: BACTERIA,URINE 0 /HPF (0-FEW); RBC,URINE 0 /HPF (0-2); SQUAMOUS EPITHELIAL CELL,UR OCC /LPF; WBC,URINE 0 /HPF (0-4)
[2019-01-06] MEDS: ATORVASTATIN CALCIUM 20 MG TABLET PO SCH (20:51)
[2019-01-06] MEDS: TAMSULOSIN 0.4 MG CAP.ER.24H. PO SCH (20:51)
[2019-01-06] MEDS: QUEtiapine 25 MG TABLET. PO SCH (20:51)
[2019-01-06] MEDS: LACTOBACILLUS RHAMNOSUS GG 1 CAPSULE. PO SCH (20:52)
[2019-01-06 22:36] VITALS: BP 109/83
[2019-01-07 03:13] VITALS: BP 115/77
[2019-01-07 04:58] LABS: BASO % 1 % (0-3); EOS # 0.1 x10^3/uL (0.0-0.7); EOS % 4 % (0-3); HEMATOCRIT 40.7 % (39.0-53.0); HEMOGLOBIN 13.7 g/dL (13.0-17.5); LYMPH # 1.8 x10^3/uL (1.0-4.8); LYMPH % 48 % (24-48); MEAN CORPUSCULAR HEMOGLOBIN 31 pg (25-35); MEAN CORPUSCULAR HGB CONC 34 g/dL (31-37); MEAN CORPUSCULAR VOLUME 93 fL (79-100); MONO # 0.5 x10^3/uL (0.0-1.1); MONO % 12 % (0-9); NEUT # 1.4 x10^3uL (1.8-7.7); NEUT % 36 % (31-73); PLATELET COUNT 186 x10^3/uL (140-400); RED BLOOD COUNT 4.37 x10^6/uL (4.30-5.70); WHITE BLOOD COUNT 3.8 x10^3/uL (4.0-11.0)
[2019-01-07 05:19] LABS: ALBUMIN 3.3 g/dL (3.4-5.0); ALBUMIN/GLOBULIN RATIO 0.9 (1.0-1.7); CALCIUM 9.1 mg/dL (8.5-10.1); CREATININE 1.2 mg/dL (0.7-1.3); POTASSIUM 3.4 mmol/L (3.5-5.1); TOTAL BILIRUBIN 0.6 mg/dL (0.2-1.0)
[2019-01-07] MEDS: PANTOPRAZOLE 40 MG TABLET.DR. PO SCH (05:24)
[2019-01-07 07:00] VITALS: BP 105/78
[2019-01-07] MEDS: amLODIPine BESYLATE 5 MG TABLET PO SCH (09:00)
[2019-01-07] MEDS: AMOXICILLIN/K CLAV 875/125MG TABLET. PO SCH ×2 (09:00→21:19)
[2019-01-07] MEDS: ALLOPURINOL 100 MG TABLET. PO SCH (09:00)
[2019-01-07] MEDS: LACTOBACILLUS RHAMNOSUS GG 1 CAPSULE. PO SCH ×2 (09:00→21:19)
[2019-01-07] MEDS: DICLOFENAC SODIUM 1% TOPICAL GEL 100GM TUBE. TP SCH ×4 (09:00→21:00)
--- NOTE | 2019-01-07 10:54 | PDOC ---
PROGRESS NOTES History of Present Illness History of Present Illness Images: Images Chest x-ray within normal limits Assessment/Plan Assessment/Plan Elevated troponin Chest pain after using cocaine and multiple other drugs according to the patient Abdominal pain as well as sore throat scratchy throat some chest wall pain worse with palpation Leg pain twitching and anxiety Drug abuse BPH Hypertension Degenerative joint disease of the knees Depression and anxiety Hyperlipidemia GERD Plan Consult cardiology Serial enzymes Serial EKGs Cardiac monitoring DVT prophylaxis Home meds Psychiatric assessment team consultation HEART CATH HEART CATH FINDINGS 1. Hemodynamics: Left ventricular end-diastolic pressure of 5 mmHg. No pullback gradient across the aortic valve. 2. Left ventriculography: Normal left ventricle systolic function with ejection fraction estimated at 60%. No significant mitral regurgitation seen. 3. Coronary angiography: a. The left main coronary artery arose from the left sinus of Valsalva, gave rise to the left anterior descending and left circumflex arteries and did not show any significant stenosis. b. The left anterior descending artery did not show any significant stenosis. c. The left circumflex artery did not show any significant stenosis. d. The right coronary artery was a large and dominant vessel arising from the right sinus of Valsalva that did not show any significant stenosis. Conclusion 1. No significant coronary artery disease 2. Normal left ventricualar systolic function with ejection fraction estimated at 60%. Recommendations Patient's non-STEMI is most probably type 2/demand ischemia Cardiovascular risk factor modification 41 MIN pt exam, chart review, > 50% of pt exam, chart review, pt care coordination Vitals Vitals Vital Signs Date Time Temp Pulse Resp B/P (MAP) Pulse Ox O2 Delivery O2 Flow Rate FiO2 01/07/19 07:00 97.8 94 18 105/78 (87) 95 Room Air 97.8 Physical Exam General: Alert, Oriented X3, Cooperative, No acute distress, Other (appears restless) Heart: Regular rate (SR/ST), Normal S1, Normal S2, No murmurs Lungs: Clear Abdomen: Soft, No tenderness Extremities: No cyanosis, No edema Skin: No breakdown, No significant lesion Labs LABS Laboratory Tests Test 01/06/19 16:33 01/07/19 04:00 Urine Collection Type Unknown Urine Color Yellow Urine Clarity Clear Urine pH 6.0 Urine Specific [place] 1.010 Urine Protein Negative mg/dL (NEG-TRACE) Urine Glucose (UA) Negative mg/dL (NEG) Urine Ketones (Stick) Negative mg/dL (NEG) Urine Blood Negative (NEG) Urine Nitrite Negative (NEG) Urine Bilirubin Negative (NEG) Urine Urobilinogen Dipstick 1.0 mg/dL (0.2 mg/dL) Urine Leukocyte Esterase Negative (NEG) Urine RBC 0 /HPF (0-2) Urine WBC 0 /HPF (0-4) Urine Squamous Epithelial Cells Occ /LPF Urine Bacteria 0 /HPF (0-FEW) White Blood Count 3.8 x10^3/uL (4.0-11.0) Red Blood Count 4.37 x10^6/uL (4.30-5.70) Hemoglobin 13.7 g/dL (13.0-17.5) Hematocrit 40.7 % (39.0-53.0) Mean Corpuscular Volume 93 fL (79-100) Mean Corpuscular Hemoglobin 31 pg (25-35) Mean Corpuscular Hemoglobin Concent 34 g/dL (31-37) Red Cell Distribution Width 13.0 % (11.5-14.5) Platelet Count 186 x10^3/uL (140-400) Neutrophils (%) (Auto) 36 % (31-73) Lymphocytes (%) (Auto) 48 % (24-48) Monocytes (%) (Auto) 12 % (0-9) Eosinophils (%) (Auto) 4 % (0-3) Basophils (%) (Auto) 1 % (0-3) Neutrophils # (Auto) 1.4 x10^3uL (1.8-7.7) Lymphocytes # (Auto) 1.8 x10^3/uL (1.0-4.8) Monocytes # (Auto) 0.5 x10^3/uL (0.0-1.1) Eosinophils # (Auto) 0.1 x10^3/uL (0.0-0.7) Basophils # (Auto) 0.0 x10^3/uL (0.0-0.2) Sodium Level 135 mmol/L (136-145) Potassium Level 3.4 mmol/L (3.5-5.1) Chloride Level 101 mmol/L (98-107) Carbon Dioxide Level 28 mmol/L (21-32) Anion Gap 6 (6-14) Blood Urea Nitrogen 12 mg/dL (8-26) Creatinine 1.2 mg/dL (0.7-1.3) Estimated GFR (Cockcroft-Gault) 75.0 BUN/Creatinine Ratio 10 (6-20) Glucose Level 84 mg/dL (70-99) Calcium Level 9.1 mg/dL (8.5-10.1) Total Bilirubin 0.6 mg/dL (0.2-1.0) Aspartate Amino Transf (AST/SGOT) 32 U/L (15-37) Alanine Aminotransferase (ALT/SGPT) 46 U/L (16-63) Alkaline Phosphatase 91 U/L (46-116) Total Protein 7.0 g/dL (6.4-8.2) Albumin 3.3 g/dL (3.4-5.0) Albumin/Globulin Ratio 0.9 (1.0-1.7) Assessment and Plan Assessmemt and Plan Problems Medical Problems: (1) Chronic pain of both knees Status: Acute (2) Drug abuse Status: Acute Patient's non-STEMI is most probably type 2/demand ischemia Cardiovascular risk factor modification Comment Review of Relevant I have reviewed the following items prachi (where applicable) has been applied. Labs Laboratory Tests Test 01/06/19 16:33 01/07/19 04:00 Urine Collection Type Unknown Urine Color Yellow Urine Clarity Clear Urine pH 6.0 Urine Specific [place] 1.010 Urine Protein Negative mg/dL (NEG-TRACE) Urine Glucose (UA) Negative mg/dL (NEG) Urine Ketones (Stick) Negative mg/dL (NEG) Urine Blood Negative (NEG) Urine Nitrite Negative (NEG) Urine Bilirubin Negative (NEG) Urine Urobilinogen Dipstick 1.0 mg/dL (0.2 mg/dL) Urine Leukocyte Esterase Negative (NEG) Urine RBC 0 /HPF (0-2) Urine WBC 0 /HPF (0-4) Urine Squamous Epithelial Cells Occ /LPF Urine Bacteria 0 /HPF (0-FEW) White Blood Count 3.8 x10^3/uL (4.0-11.0) Red Blood Count 4.37 x10^6/uL (4.30-5.70) Hemoglobin 13.7 g/dL (13.0-17.5) Hematocrit 40.7 % (39.0-53.0) Mean Corpuscular Volume 93 fL (79-100) Mean Corpuscular Hemoglobin 31 pg (25-35) Mean Corpuscular Hemoglobin Concent 34 g/dL (31-37) Red Cell Distribution Width 13.0 % (11.5-14.5) Platelet Count 186 x10^3/uL (140-400) Neutrophils (%) (Auto) 36 % (31-73) Lymphocytes (%) (Auto) 48 % (24-48) Monocytes (%) (Auto) 12 % (0-9) Eosinophils (%) (Auto) 4 % (0-3) Basophils (%) (Auto) 1 % (0-3) Neutrophils # (Auto) 1.4 x10^3uL (1.8-7.7) Lymphocytes # (Auto) 1.8 x10^3/uL (1.0-4.8) Monocytes # (Auto) 0.5 x10^3/uL (0.0-1.1) Eosinophils # (Auto) 0.1 x10^3/uL (0.0-0.7) Basophils # (Auto) 0.0 x10^3/uL (0.0-0.2) Sodium Level 135 mmol/L (136-145) Potassium Level 3.4 mmol/L (3.5-5.1) Chloride Level 101 mmol/L (98-107) Carbon Dioxide Level 28 mmol/L (21-32) Anion Gap 6 (6-14) Blood Urea Nitrogen 12 mg/dL (8-26) Creatinine 1.2 mg/dL (0.7-1.3) Estimated GFR (Cockcroft-Gault) 75.0 BUN/Creatinine Ratio 10 (6-20) Glucose Level 84 mg/dL (70-99) Calcium Level 9.1 mg/dL (8.5-10.1) Total Bilirubin 0.6 mg/dL (0.2-1.0) Aspartate Amino Transf (AST/SGOT) 32 U/L (15-37) Alanine Aminotransferase (ALT/SGPT) 46 U/L (16-63) Alkaline Phosphatase 91 U/L (46-116) Total Protein 7.0 g/dL (6.4-8.2) Albumin 3.3 g/dL (3.4-5.0) Albumin/Globulin Ratio 0.9 (1.0-1.7) Laboratory Tests Test 01/06/19 16:33 01/07/19 04:00 Urine Collection Type Unknown Urine Color Yellow Urine Clarity Clear Urine pH 6.0 Urine Specific [place] 1.010 Urine Protein Negative mg/dL (NEG-TRACE) Urine Glucose (UA) Negative mg/dL (NEG) Urine Ketones (Stick) Negative mg/dL (NEG) Urine Blood Negative (NEG) Urine Nitrite Negative (NEG) Urine Bilirubin Negative (NEG) Urine Urobilinogen Dipstick 1.0 mg/dL (0.2 mg/dL) Urine Leukocyte Esterase Negative (NEG) Urine RBC 0 /HPF (0-2) Urine WBC 0 /HPF (0-4) Urine Squamous Epithelial Cells Occ /LPF Urine Bacteria 0 /HPF (0-FEW) White Blood Count 3.8 x10^3/uL (4.0-11.0) Red Blood Count 4.37 x10^6/uL (4.30-5.70) Hemoglobin 13.7 g/dL (13.0-17.5) Hematocrit 40.7 % (39.0-53.0) Mean Corpuscular Volume 93 fL (79-100) Mean Corpuscular Hemoglobin 31 pg (25-35) Mean Corpuscular Hemoglobin Concent 34 g/dL (31-37) Red Cell Distribution Width 13.0 % (11.5-14.5) Platelet Count 186 x10^3/uL (140-400) Neutrophils (%) (Auto) 36 % (31-73) Lymphocytes (%) (Auto) 48 % (24-48) Monocytes (%) (Auto) 12 % (0-9) Eosinophils (%) (Auto) 4 % (0-3) Basophils (%) (Auto) 1 % (0-3) Neutrophils # (Auto) 1.4 x10^3uL (1.8-7.7) Lymphocytes # (Auto) 1.8 x10^3/uL (1.0-4.8) Monocytes # (Auto) 0.5 x10^3/uL (0.0-1.1) Eosinophils # (Auto) 0.1 x10^3/uL (0.0-0.7) Basophils # (Auto) 0.0 x10^3/uL (0.0-0.2) Sodium Level 135 mmol/L (136-145) Potassium Level 3.4 mmol/L (3.5-5.1) Chloride Level 101 mmol/L (98-107) Carbon Dioxide Level 28 mmol/L (21-32) Anion Gap 6 (6-14) Blood Urea Nitrogen 12 mg/dL (8-26) Creatinine 1.2 mg/dL (0.7-1.3) Estimated GFR (Cockcroft-Gault) 75.0 BUN/Creatinine Ratio 10 (6-20) Glucose Level 84 mg/dL (70-99) Calcium Level 9.1 mg/dL (8.5-10.1) Total Bilirubin 0.6 mg/dL (0.2-1.0) Aspartate Amino Transf (AST/SGOT) 32 U/L (15-37) Alanine Aminotransferase (ALT/SGPT) 46 U/L (16-63) Alkaline Phosphatase 91 U/L (46-116) Total Protein 7.0 g/dL (6.4-8.2) Albumin 3.3 g/dL (3.4-5.0) Albumin/Globulin Ratio 0.9 (1.0-1.7) Medications Current Medications Lorazepam (Ativan Inj) 1 mg 1X ONCE IV Last administered on 01/04/19 19:41; Start 01/04/19 at 19:30; Stop 01/04/19 at 19:31; Status DC Benzocaine (Ora-Jel) 1 jil 1X STAT TP Last administered on 01/04/19 19:59; Start 01/04/19 at 19:51; Stop 01/04/19 at 19:55; Status DC Diphenhydramine HCl (Benadryl) 25 mg 1X ONCE IVP Last administered on 01/04/19at 20:25; Start 01/04/19 at 20:30; Stop 01/04/19 at 20:31; Status DC Multi-Ingredient Mouthwash/Gargle (Gi Cocktail) 20 ml 1X ONCE SWSW Last administered on 01/04/19 22:29; Start 01/04/19 at 21:30; Stop 01/04/19 at 21:31; Status DC Lorazepam (Ativan Inj) 1 mg 1X ONCE IV Last administered on 01/04/19 22:29; Start 01/04/19 at 22:00; Stop 01/04/19 at 22:01; Status DC Aspirin (Children'S Aspirin) 324 mg 1X ONCE PO ; Start 01/05/19 at 01:00; Stop 01/05/19 at 01:57; Status DC Aspirin (Children'S Aspirin) 324 mg 1X ONCE PO ; Start 01/05/19 at 09:00; Stop 01/05/19 at 09:01; Status DC Benzocaine (Ora-Jel) 1 jil PRN QID PRN TP ORAL PAIN Last administered on 01/05/19 17:05; Start 01/05/19 at 11:15 Allopurinol (Zyloprim) 100 mg DAILY PO Last administered on 01/06/19 08:53; Start 01/05/19 at 12:00 Amlodipine Besylate (Norvasc) 5 mg DAILY PO Last administered on 01/06/19 08:52; Start 01/05/19 at 12:00 Amoxicillin/ Clavulanate Potassium (Augmentin 875/ 125mg) 1 tab BID PO Last administered on 01/06/19 20:51; Start 01/05/19 at 21:00 Atorvastatin Calcium (Lipitor) 20 mg QHS PO Last administered on 01/06/19 20:51; Start 01/05/19 at 21:00 Diclofenac Sodium (Voltaren) 1 jil QID TP Last administered on 01/06/19 20:52; Start 01/05/19 at 13:00 Gabapentin (Neurontin) 300 mg TID PO Last administered on 01/06/19 20:52; Start 01/05/19 at 14:00 Pantoprazole Sodium (Protonix) 40 mg DAILYAC PO Last administered on 01/07/19 05:24; Start 01/05/19 at 12:00 Tamsulosin HCl (Flomax) 0.8 mg HS PO Last administered on 01/06/19 20:51; Start 01/05/19 at 21:00 Duloxetine HCl (Cymbalta) 60 mg DAILY PO Last administered on 01/06/19 08:52; Start 01/05/19 at 12:00 Meloxicam (Mobic) 15 mg DAILY PO Last administered on 01/06/19 08:52; Start 01/05/19 at 12:00 Quetiapine Fumarate (SEROquel) 50 mg QHS PO Last administered on 01/06/19 20:51; Start 01/05/19 at 21:00 Throat Lozenges (Cepacol Sore Throat Lozenge) 1 henrry PRN Q2HRS PRN PO SORE THROAT Last administered on 01/06/19at 20:50; Start 01/06/19 at 02:30 Acetaminophen (Tylenol) 650 mg PRN Q6HRS PRN PO pain Last administered on 01/06/19at 13:41; Start 01/06/19 at 13:30 Lactobacillus Rhamnosus (Culturelle) 1 cap BID PO Last administered on 01/06/19at 20:52; Start 01/06/19 at 21:00 Active Scripts Active Augmentin 875-125 Tablet (Amoxicillin/Potassium Clav) 1 Each Tablet 1 Tab PO BID Voltaren (Diclofenac Sodium) 100 Gm Gel..gram. 1 Gm TP QID 30 Days Mobic (Meloxicam) 15 Mg Tablet 1 Tab PO DAILY 30 Days Reported Quetiapine Fumarate 50 Mg Tablet 50 Mg PO HS Atorvastatin Calcium 20 Mg Tablet 1 Tab PO DAILY Allopurinol 100 Mg Tablet 1 Tab PO DAILY Amlodipine Besylate 5 Mg Tablet 5 Mg PO DAILY Lisinopril 10 Mg Tablet 1 Tab PO DAILY Protonix (Pantoprazole Sodium) 40 Mg Tablet.dr 40 Mg PO DAILYAC Cymbalta (Duloxetine Hcl) 60 Mg Capsule.dr 1 Cap PO DAILY Gabapentin (Gabapentin) 300 Mg Capsule 300 Mg PO TID Flomax (Tamsulosin Hcl) 0.4 Mg Cap.er.24h 0.8 Mg PO HS Vitals/I & O Vital Sign - Last 24 Hours 01/06/19 01/06/19 01/06/19 01/06/19 11:00 15:00 19:41 20:00 Temp 97.9 97.7 98.1 97.9 97.7 98.1 Pulse 95 86 83 Resp 17 18 20 B/P (MAP) 97/66 (76) 117/77 (90) 132/85 (101) Pulse Ox 100 98 95 O2 Delivery Room Air Room Air Room Air Room Air 01/06/19 01/07/19 01/07/19 22:36 03:13 07:00 Temp 97.7 97.9 97.8 97.7 97.9 97.8 Pulse 87 83 94 Resp 20 18 18 B/P (MAP) 109/83 (92) 115/77 (90) 105/78 (87) Pulse Ox 96 95 95 O2 Delivery Room Air Room Air Room Air Intake and Output 01/06/19 01/06/19 01/07/19 14:59 22:59 06:59 Intake Total 540 ml 120 ml 450 ml Output Total 300 ml 220 ml 650 ml Balance 240 ml -100 ml -200 ml XIOMARA BURROUGHS MD Jan 07, 2019 10:54
[2019-01-07 11:00] VITALS: BP 110/75
[2019-01-07] MEDS: BENZOCAINE/MENTHOL LOZENGE. PO PRN (11:08)
[2019-01-07] MEDS: GABAPENTIN 300 MG CAPSULE. PO SCH ×3 (11:08→21:19)
[2019-01-07] MEDS: MELOXICAM 7.5 MG TABLET PO SCH (11:08)
[2019-01-07] MEDS ORDERED: POTASSIUM CHLORIDE 20 MEQ TABLET.ER. PO ONE (12:45)
[2019-01-07] MEDS: CLOTRIMAZOLE 10 MG TROCHE. MM SCH ×3 (14:29→21:19)
[2019-01-07] MEDS: ACETAMINOPHEN 325 MG TABLET. PO PRN ×2 (14:29→21:19)
[2019-01-07] MEDS: DULoxetine HCL 30 MG CAPSULE.DR PO SCH (14:30)
[2019-01-07 15:00] VITALS: BP 108/96
--- NOTE | 2019-01-07 17:10 | NUR ---
This nurse attempted to get patient to take medications throughout day, patient refused a few medications. "I think I am taking too many medications." This nurse educated on each of the medication. This nurse will continue to monitor.
[2019-01-07 19:05] VITALS: BP 117/89
[2019-01-07] MEDS: ATORVASTATIN CALCIUM 20 MG TABLET PO SCH (21:19)
[2019-01-07] MEDS: TAMSULOSIN 0.4 MG CAP.ER.24H. PO SCH (21:19)
[2019-01-07] MEDS: QUEtiapine 25 MG TABLET. PO SCH (21:19)
[2019-01-07 23:49] VITALS: BP 117/80
[2019-01-08] MEDS: ACETAMINOPHEN 325 MG TABLET. PO PRN (02:44)
[2019-01-08 03:45] VITALS: BP 113/72
[2019-01-08 03:56] LABS: BASO % 1 % (0-3); EOS # 0.1 x10^3/uL (0.0-0.7); EOS % 3 % (0-3); HEMOGLOBIN 13.4 g/dL (13.0-17.5); LYMPH # 1.9 x10^3/uL (1.0-4.8); LYMPH % 49 % (24-48); MEAN CORPUSCULAR HEMOGLOBIN 31 pg (25-35); MEAN CORPUSCULAR HGB CONC 34 g/dL (31-37); MEAN CORPUSCULAR VOLUME 93 fL (79-100); MONO # 0.4 x10^3/uL (0.0-1.1); MONO % 10 % (0-9); NEUT # 1.5 x10^3uL (1.8-7.7); NEUT % 38 % (31-73); PLATELET COUNT 194 x10^3/uL (140-400); RED BLOOD COUNT 4.32 x10^6/uL (4.30-5.70); RED CELL DISTRIBUTION WIDTH 12.7 % (11.5-14.5)
[2019-01-08 04:29] LABS: ALBUMIN 3.1 g/dL (3.4-5.0); ALBUMIN/GLOBULIN RATIO 0.8 (1.0-1.7); CALCIUM 8.9 mg/dL (8.5-10.1); CREATININE 1.1 mg/dL (0.7-1.3); GFR 82.9; POTASSIUM 3.7 mmol/L (3.5-5.1); TOTAL BILIRUBIN 0.4 mg/dL (0.2-1.0); TOTAL PROTEIN 6.9 g/dL (6.4-8.2)
[2019-01-08] MEDS: CLOTRIMAZOLE 10 MG TROCHE. MM SCH ×2 (05:54→08:45)
[2019-01-08] MEDS: PANTOPRAZOLE 40 MG TABLET.DR. PO SCH (07:15)
[2019-01-08 07:30] VITALS: BP 102/66
[2019-01-08] MEDS ORDERED: POTASSIUM CHLORIDE 20 MEQ TABLET.ER. PO SCH (08:00)
[2019-01-08] MEDS: GABAPENTIN 300 MG CAPSULE. PO SCH (08:42)
[2019-01-08] MEDS: MELOXICAM 7.5 MG TABLET PO SCH (08:43)
[2019-01-08] MEDS: AMOXICILLIN/K CLAV 875/125MG TABLET. PO SCH (08:43)
[2019-01-08] MEDS: DULoxetine HCL 30 MG CAPSULE.DR PO SCH (08:44)
[2019-01-08] MEDS: LACTOBACILLUS RHAMNOSUS GG 1 CAPSULE. PO SCH (08:44)
[2019-01-08] MEDS: amLODIPine BESYLATE 5 MG TABLET PO SCH (08:44)
[2019-01-08] MEDS: DICLOFENAC SODIUM 1% TOPICAL GEL 100GM TUBE. TP SCH ×2 (08:45→12:06)
[2019-01-08] MEDS: ALLOPURINOL 100 MG TABLET. PO SCH (08:45)
--- NOTE | 2019-01-08 08:58 | PDOC ---
PROGRESS NOTES Chief Complaint Chief Complaint Assessment/Plan Elevated troponin Chest pain after using cocaine and multiple other drugs according to the patient Abdominal pain as well as sore throat scratchy throat some chest wall pain worse with palpation Leg pain twitching and anxiety Cocaine positive - h/o Drug abuse BPH Hypertension Degenerative joint disease of the knees Depression and anxiety Hyperlipidemia GERD Plan Consulted cardiology Serial enzymes Serial EKGs Cardiac monitoring DVT prophylaxis Home meds Psychiatric assessment team consultation History of Present Illness History of Present Illness Admitted with CP and elevated troponins, cocaine positive UDS. Seen by cardiology: Patient's non-STEMI is most probably type 2/demand ischemia and recommended Cardiovascular risk factor modification 41 MIN pt exam, chart review, > 50% of pt exam, chart review, pt care coordination HEART CATH 11/03/2018 FINDINGS 1. Hemodynamics: Left ventricular end-diastolic pressure of 5 mmHg. No pullback gradient across the aortic valve. 2. Left ventriculography: Normal left ventricle systolic function with ejection fraction estimated at 60%. No significant mitral regurgitation seen. 3. Coronary angiography: a. The left main coronary artery arose from the left sinus of Valsalva, gave rise to the left anterior descending and left circumflex arteries and did not show any significant stenosis. b. The left anterior descending artery did not show any significant stenosis. c. The left circumflex artery did not show any significant stenosis. d. The right coronary artery was a large and dominant vessel arising from the right sinus of Valsalva that did not show any significant stenosis. Conclusion 1. No significant coronary artery disease 2. Normal left ventricular systolic function with ejection fraction estimated at 60%. Recommendations Vitals Vitals Vital Signs Date Time Temp Pulse Resp B/P (MAP) Pulse Ox O2 Delivery O2 Flow Rate FiO2 01/08/19 07:30 97.4 59 20 102/66 (78) 93 Room Air 97.4 Physical Exam General: Alert, Oriented X3, Cooperative, No acute distress, Other (appears restless) Heart: Regular rate (SR/ST), Normal S1, Normal S2, No murmurs Lungs: Clear Abdomen: Soft, No tenderness Extremities: No cyanosis, No edema Skin: No breakdown, No significant lesion Labs LABS Laboratory Tests Test 01/08/19 03:05 White Blood Count 4.0 x10^3/uL (4.0-11.0) Red Blood Count 4.32 x10^6/uL (4.30-5.70) Hemoglobin 13.4 g/dL (13.0-17.5) Hematocrit 40.0 % (39.0-53.0) Mean Corpuscular Volume 93 fL (79-100) Mean Corpuscular Hemoglobin 31 pg (25-35) Mean Corpuscular Hemoglobin Concent 34 g/dL (31-37) Red Cell Distribution Width 12.7 % (11.5-14.5) Platelet Count 194 x10^3/uL (140-400) Neutrophils (%) (Auto) 38 % (31-73) Lymphocytes (%) (Auto) 49 % (24-48) Monocytes (%) (Auto) 10 % (0-9) Eosinophils (%) (Auto) 3 % (0-3) Basophils (%) (Auto) 1 % (0-3) Neutrophils # (Auto) 1.5 x10^3uL (1.8-7.7) Lymphocytes # (Auto) 1.9 x10^3/uL (1.0-4.8) Monocytes # (Auto) 0.4 x10^3/uL (0.0-1.1) Eosinophils # (Auto) 0.1 x10^3/uL (0.0-0.7) Basophils # (Auto) 0.0 x10^3/uL (0.0-0.2) Sodium Level 138 mmol/L (136-145) Potassium Level 3.7 mmol/L (3.5-5.1) Chloride Level 102 mmol/L (98-107) Carbon Dioxide Level 29 mmol/L (21-32) Anion Gap 7 (6-14) Blood Urea Nitrogen 8 mg/dL (8-26) Creatinine 1.1 mg/dL (0.7-1.3) Estimated GFR (Cockcroft-Gault) 82.9 BUN/Creatinine Ratio 7 (6-20) Glucose Level 137 mg/dL (70-99) Calcium Level 8.9 mg/dL (8.5-10.1) Total Bilirubin 0.4 mg/dL (0.2-1.0) Aspartate Amino Transf (AST/SGOT) 32 U/L (15-37) Alanine Aminotransferase (ALT/SGPT) 52 U/L (16-63) Alkaline Phosphatase 99 U/L (46-116) Troponin I Quantitative 0.134 ng/mL (0.000-0.055) Total Protein 6.9 g/dL (6.4-8.2) Albumin 3.1 g/dL (3.4-5.0) Albumin/Globulin Ratio 0.8 (1.0-1.7) Assessment and Plan Assessmemt and Plan Problems Medical Problems: (1) Chronic pain of both knees Status: Acute (2) Drug abuse Status: Acute (3) Elevated troponin Status: Acute Comment Review of Relevant I have reviewed the following items prachi (where applicable) has been applied. Labs Laboratory Tests Test 01/06/19 16:33 01/07/19 04:00 01/08/19 03:05 Urine Collection Type Unknown Urine Color Yellow Urine Clarity Clear Urine pH 6.0 Urine Specific [place] 1.010 Urine Protein Negative mg/dL (NEG-TRACE) Urine Glucose (UA) Negative mg/dL (NEG) Urine Ketones (Stick) Negative mg/dL (NEG) Urine Blood Negative (NEG) Urine Nitrite Negative (NEG) Urine Bilirubin Negative (NEG) Urine Urobilinogen Dipstick 1.0 mg/dL (0.2 mg/dL) Urine Leukocyte Esterase Negative (NEG) Urine RBC 0 /HPF (0-2) Urine WBC 0 /HPF (0-4) Urine Squamous Epithelial Cells Occ /LPF Urine Bacteria 0 /HPF (0-FEW) White Blood Count 3.8 x10^3/uL (4.0-11.0) 4.0 x10^3/uL (4.0-11.0) Red Blood Count 4.37 x10^6/uL (4.30-5.70) 4.32 x10^6/uL (4.30-5.70) Hemoglobin 13.7 g/dL (13.0-17.5) 13.4 g/dL (13.0-17.5) Hematocrit 40.7 % (39.0-53.0) 40.0 % (39.0-53.0) Mean Corpuscular Volume 93 fL (79-100) 93 fL (79-100) Mean Corpuscular Hemoglobin 31 pg (25-35) 31 pg (25-35) Mean Corpuscular Hemoglobin Concent 34 g/dL (31-37) 34 g/dL (31-37) Red Cell Distribution Width 13.0 % (11.5-14.5) 12.7 % (11.5-14.5) Platelet Count 186 x10^3/uL (140-400) 194 x10^3/uL (140-400) Neutrophils (%) (Auto) 36 % (31-73) 38 % (31-73) Lymphocytes (%) (Auto) 48 % (24-48) 49 % (24-48) Monocytes (%) (Auto) 12 % (0-9) 10 % (0-9) Eosinophils (%) (Auto) 4 % (0-3) 3 % (0-3) Basophils (%) (Auto) 1 % (0-3) 1 % (0-3) Neutrophils # (Auto) 1.4 x10^3uL (1.8-7.7) 1.5 x10^3uL (1.8-7.7) Lymphocytes # (Auto) 1.8 x10^3/uL (1.0-4.8) 1.9 x10^3/uL (1.0-4.8) Monocytes # (Auto) 0.5 x10^3/uL (0.0-1.1) 0.4 x10^3/uL (0.0-1.1) Eosinophils # (Auto) 0.1 x10^3/uL (0.0-0.7) 0.1 x10^3/uL (0.0-0.7) Basophils # (Auto) 0.0 x10^3/uL (0.0-0.2) 0.0 x10^3/uL (0.0-0.2) Sodium Level 135 mmol/L (136-145) 138 mmol/L (136-145) Potassium Level 3.4 mmol/L (3.5-5.1) 3.7 mmol/L (3.5-5.1) Chloride Level 101 mmol/L (98-107) 102 mmol/L (98-107) Carbon Dioxide Level 28 mmol/L (21-32) 29 mmol/L (21-32) Anion Gap 6 (6-14) 7 (6-14) Blood Urea Nitrogen 12 mg/dL (8-26) 8 mg/dL (8-26) Creatinine 1.2 mg/dL (0.7-1.3) 1.1 mg/dL (0.7-1.3) Estimated GFR (Cockcroft-Gault) 75.0 82.9 BUN/Creatinine Ratio 10 (6-20) 7 (6-20) Glucose Level 84 mg/dL (70-99) 137 mg/dL (70-99) Calcium Level 9.1 mg/dL (8.5-10.1) 8.9 mg/dL (8.5-10.1) Total Bilirubin 0.6 mg/dL (0.2-1.0) 0.4 mg/dL (0.2-1.0) Aspartate Amino Transf (AST/SGOT) 32 U/L (15-37) 32 U/L (15-37) Alanine Aminotransferase (ALT/SGPT) 46 U/L (16-63) 52 U/L (16-63) Alkaline Phosphatase 91 U/L (46-116) 99 U/L (46-116) Total Protein 7.0 g/dL (6.4-8.2) 6.9 g/dL (6.4-8.2) Albumin 3.3 g/dL (3.4-5.0) 3.1 g/dL (3.4-5.0) Albumin/Globulin Ratio 0.9 (1.0-1.7) 0.8 (1.0-1.7) Troponin I Quantitative 0.134 ng/mL (0.000-0.055) Laboratory Tests Test 01/08/19 03:05 White Blood Count 4.0 x10^3/uL (4.0-11.0) Red Blood Count 4.32 x10^6/uL (4.30-5.70) Hemoglobin 13.4 g/dL (13.0-17.5) Hematocrit 40.0 % (39.0-53.0) Mean Corpuscular Volume 93 fL (79-100) Mean Corpuscular Hemoglobin 31 pg (25-35) Mean Corpuscular Hemoglobin Concent 34 g/dL (31-37) Red Cell Distribution Width 12.7 % (11.5-14.5) Platelet Count 194 x10^3/uL (140-400) Neutrophils (%) (Auto) 38 % (31-73) Lymphocytes (%) (Auto) 49 % (24-48) Monocytes (%) (Auto) 10 % (0-9) Eosinophils (%) (Auto) 3 % (0-3) Basophils (%) (Auto) 1 % (0-3) Neutrophils # (Auto) 1.5 x10^3uL (1.8-7.7) Lymphocytes # (Auto) 1.9 x10^3/uL (1.0-4.8) Monocytes # (Auto) 0.4 x10^3/uL (0.0-1.1) Eosinophils # (Auto) 0.1 x10^3/uL (0.0-0.7) Basophils # (Auto) 0.0 x10^3/uL (0.0-0.2) Sodium Level 138 mmol/L (136-145) Potassium Level 3.7 mmol/L (3.5-5.1) Chloride Level 102 mmol/L (98-107) Carbon Dioxide Level 29 mmol/L (21-32) Anion Gap 7 (6-14) Blood Urea Nitrogen 8 mg/dL (8-26) Creatinine 1.1 mg/dL (0.7-1.3) Estimated GFR (Cockcroft-Gault) 82.9 BUN/Creatinine Ratio 7 (6-20) Glucose Level 137 mg/dL (70-99) Calcium Level 8.9 mg/dL (8.5-10.1) Total Bilirubin 0.4 mg/dL (0.2-1.0) Aspartate Amino Transf (AST/SGOT) 32 U/L (15-37) Alanine Aminotransferase (ALT/SGPT) 52 U/L (16-63) Alkaline Phosphatase 99 U/L (46-116) Troponin I Quantitative 0.134 ng/mL (0.000-0.055) Total Protein 6.9 g/dL (6.4-8.2) Albumin 3.1 g/dL (3.4-5.0) Albumin/Globulin Ratio 0.8 (1.0-1.7) Medications Current Medications Lorazepam (Ativan Inj) 1 mg 1X ONCE IV Last administered on 01/04/19at 19:41; Start 01/04/19 at 19:30; Stop 01/04/19 at 19:31; Status DC Benzocaine (Ora-Jel) 1 jil 1X STAT TP Last administered on 01/04/19at 19:59; Start 01/04/19 at 19:51; Stop 01/04/19 at 19:55; Status DC Diphenhydramine HCl (Benadryl) 25 mg 1X ONCE IVP Last administered on 01/04/19at 20:25; Start 01/04/19 at 20:30; Stop 01/04/19 at 20:31; Status DC Multi-Ingredient Mouthwash/Gargle (Gi Cocktail) 20 ml 1X ONCE SWSW Last administered on 01/04/19 22:29; Start 01/04/19 at 21:30; Stop 01/04/19 at 21:31; Status DC Lorazepam (Ativan Inj) 1 mg 1X ONCE IV Last administered on 01/04/19 22:29; Start 01/04/19 at 22:00; Stop 01/04/19 at 22:01; Status DC Aspirin (Children'S Aspirin) 324 mg 1X ONCE PO ; Start 01/05/19 at 01:00; Stop 01/05/19 at 01:57; Status DC Aspirin (Children'S Aspirin) 324 mg 1X ONCE PO ; Start 01/05/19 at 09:00; Stop 01/05/19 at 09:01; Status DC Benzocaine (Ora-Jel) 1 jil PRN QID PRN TP ORAL PAIN Last administered on 01/05/19at 17:05; Start 01/05/19 at 11:15 Allopurinol (Zyloprim) 100 mg DAILY PO Last administered on 01/06/19 08:53; Start 01/05/19 at 12:00 Amlodipine Besylate (Norvasc) 5 mg DAILY PO Last administered on 01/06/19 08:52; Start 01/05/19 at 12:00 Amoxicillin/ Clavulanate Potassium (Augmentin 875/ 125mg) 1 tab BID PO Last administered on 01/08/19 08:43; Start 01/05/19 at 21:00 Atorvastatin Calcium (Lipitor) 20 mg QHS PO Last administered on 01/07/19 21:19; Start 01/05/19 at 21:00 Diclofenac Sodium (Voltaren) 1 jil QID TP Last administered on 01/07/19 21:00; Start 01/05/19 at 13:00 Gabapentin (Neurontin) 300 mg TID PO Last administered on 01/08/19 08:42; Start 01/05/19 at 14:00 Pantoprazole Sodium (Protonix) 40 mg DAILYAC PO Last administered on 01/08/19 07:15; Start 01/05/19 at 12:00 Tamsulosin HCl (Flomax) 0.8 mg HS PO Last administered on 01/07/19 21:19; Start 01/05/19 at 21:00 Duloxetine HCl (Cymbalta) 60 mg DAILY PO Last administered on 01/07/19 14:30; Start 01/05/19 at 12:00 Meloxicam (Mobic) 15 mg DAILY PO Last administered on 01/08/19 08:43; Start 01/05/19 at 12:00 Quetiapine Fumarate (SEROquel) 50 mg QHS PO Last administered on 01/07/19 21:19; Start 01/05/19 at 21:00 Throat Lozenges (Cepacol Sore Throat Lozenge) 1 henrry PRN Q2HRS PRN PO SORE THROAT Last administered on 01/07/19 11:08; Start 01/06/19 at 02:30 Acetaminophen (Tylenol) 650 mg PRN Q6HRS PRN PO pain Last administered on 01/08/19 02:44; Start 01/06/19 at 13:30 Lactobacillus Rhamnosus (Culturelle) 1 cap BID PO Last administered on 01/07/19 21:19; Start 01/06/19 at 21:00 Clotrimazole (Mycelex) 10 mg 5XDAY MM Last administered on 01/08/19 05:54; Start 01/07/19 at 14:00 Potassium Chloride (Klor-Con) 40 meq 1X ONCE PO Last administered on 01/07/19 18:16; Start 01/07/19 at 12:45; Stop 01/07/19 at 12:47; Status DC Potassium Chloride (Klor-Con) 20 meq DAILYWBKFT PO ; Start 01/08/19 at 08:00 Active Scripts Active Augmentin 875-125 Tablet (Amoxicillin/Potassium Clav) 1 Each Tablet 1 Tab PO BID Voltaren (Diclofenac Sodium) 100 Gm Gel..gram. 1 Gm TP QID 30 Days Mobic (Meloxicam) 15 Mg Tablet 1 Tab PO DAILY 30 Days Reported Quetiapine Fumarate 50 Mg Tablet 50 Mg PO HS Atorvastatin Calcium 20 Mg Tablet 1 Tab PO DAILY Allopurinol 100 Mg Tablet 1 Tab PO DAILY Amlodipine Besylate 5 Mg Tablet 5 Mg PO DAILY Lisinopril 10 Mg Tablet 1 Tab PO DAILY Protonix (Pantoprazole Sodium) 40 Mg Tablet.dr 40 Mg PO DAILYAC Cymbalta (Duloxetine Hcl) 60 Mg Capsule.dr 1 Cap PO DAILY Gabapentin (Gabapentin) 300 Mg Capsule 300 Mg PO TID Flomax (Tamsulosin Hcl) 0.4 Mg Cap.er.24h 0.8 Mg PO HS Vitals/I & O Vital Sign - Last 24 Hours 01/07/19 01/07/19 01/07/19 01/07/19 11:00 15:00 19:05 20:04 Temp 97.3 98.1 97.9 97.3 98.1 97.9 Pulse 79 86 95 Resp 20 12 18 B/P (MAP) 110/75 (87) 108/96 (100) 117/89 (98) Pulse Ox 80 98 95 O2 Delivery Room Air Room Air Room Air Room Air 01/07/19 01/08/19 01/08/19 23:49 03:45 07:30 Temp 97.9 98.1 97.4 97.9 98.1 97.4 Pulse 71 72 59 Resp 18 18 20 B/P (MAP) 117/80 (92) 113/72 (86) 102/66 (78) Pulse Ox 94 96 93 O2 Delivery Room Air Room Air Room Air Intake and Output 01/07/19 01/07/19 01/08/19 14:59 22:59 06:59 Intake Total 400 ml 250 ml Output Total 950 ml 600 ml Balance -550 ml -350 ml KATY WATTS MD Jan 08, 2019 08:58
[2019-01-08 11:00] VITALS: BP 107/82
--- NOTE | 2019-01-08 11:44 | PDOC3 ---
Discharge Summary Visit Information Date of Admission: Jan 05, 2019 Date of Discharge: Jan 08, 2019 Admitting Diagnosis: Chest pain Final Diagnosis Problems Medical Problems: (1) Chronic pain of both knees Status: Acute (2) Drug abuse Status: Acute (3) Elevated troponin Status: Acute Brief Hospital Course Allergies Allergies Coded Allergies Type Severity Reaction Last Updated Verified No Known Drug Allergies 09/28/18 No Vital Signs Vital Signs Date Time Temp Pulse Resp B/P (MAP) Pulse Ox O2 Delivery O2 Flow Rate FiO2 01/08/19 08:00 Room Air 01/08/19 07:30 97.4 59 20 102/66 (78) 93 97.4 Lab Results Laboratory Tests Test 01/06/19 16:33 01/07/19 04:00 01/08/19 03:05 Urine Collection Type Unknown Urine Color Yellow Urine Clarity Clear Urine pH 6.0 Urine Specific [place] 1.010 Urine Protein Negative mg/dL (NEG-TRACE) Urine Glucose (UA) Negative mg/dL (NEG) Urine Ketones (Stick) Negative mg/dL (NEG) Urine Blood Negative (NEG) Urine Nitrite Negative (NEG) Urine Bilirubin Negative (NEG) Urine Urobilinogen Dipstick 1.0 mg/dL (0.2 mg/dL) Urine Leukocyte Esterase Negative (NEG) Urine RBC 0 /HPF (0-2) Urine WBC 0 /HPF (0-4) Urine Squamous Epithelial Cells Occ /LPF Urine Bacteria 0 /HPF (0-FEW) White Blood Count 3.8 x10^3/uL (4.0-11.0) 4.0 x10^3/uL (4.0-11.0) Red Blood Count 4.37 x10^6/uL (4.30-5.70) 4.32 x10^6/uL (4.30-5.70) Hemoglobin 13.7 g/dL (13.0-17.5) 13.4 g/dL (13.0-17.5) Hematocrit 40.7 % (39.0-53.0) 40.0 % (39.0-53.0) Mean Corpuscular Volume 93 fL (79-100) 93 fL (79-100) Mean Corpuscular Hemoglobin 31 pg (25-35) 31 pg (25-35) Mean Corpuscular Hemoglobin Concent 34 g/dL (31-37) 34 g/dL (31-37) Red Cell Distribution Width 13.0 % (11.5-14.5) 12.7 % (11.5-14.5) Platelet Count 186 x10^3/uL (140-400) 194 x10^3/uL (140-400) Neutrophils (%) (Auto) 36 % (31-73) 38 % (31-73) Lymphocytes (%) (Auto) 48 % (24-48) 49 % (24-48) Monocytes (%) (Auto) 12 % (0-9) 10 % (0-9) Eosinophils (%) (Auto) 4 % (0-3) 3 % (0-3) Basophils (%) (Auto) 1 % (0-3) 1 % (0-3) Neutrophils # (Auto) 1.4 x10^3uL (1.8-7.7) 1.5 x10^3uL (1.8-7.7) Lymphocytes # (Auto) 1.8 x10^3/uL (1.0-4.8) 1.9 x10^3/uL (1.0-4.8) Monocytes # (Auto) 0.5 x10^3/uL (0.0-1.1) 0.4 x10^3/uL (0.0-1.1) Eosinophils # (Auto) 0.1 x10^3/uL (0.0-0.7) 0.1 x10^3/uL (0.0-0.7) Basophils # (Auto) 0.0 x10^3/uL (0.0-0.2) 0.0 x10^3/uL (0.0-0.2) Sodium Level 135 mmol/L (136-145) 138 mmol/L (136-145) Potassium Level 3.4 mmol/L (3.5-5.1) 3.7 mmol/L (3.5-5.1) Chloride Level 101 mmol/L (98-107) 102 mmol/L (98-107) Carbon Dioxide Level 28 mmol/L (21-32) 29 mmol/L (21-32) Anion Gap 6 (6-14) 7 (6-14) Blood Urea Nitrogen 12 mg/dL (8-26) 8 mg/dL (8-26) Creatinine 1.2 mg/dL (0.7-1.3) 1.1 mg/dL (0.7-1.3) Estimated GFR (Cockcroft-Gault) 75.0 82.9 BUN/Creatinine Ratio 10 (6-20) 7 (6-20) Glucose Level 84 mg/dL (70-99) 137 mg/dL (70-99) Calcium Level 9.1 mg/dL (8.5-10.1) 8.9 mg/dL (8.5-10.1) Total Bilirubin 0.6 mg/dL (0.2-1.0) 0.4 mg/dL (0.2-1.0) Aspartate Amino Transf (AST/SGOT) 32 U/L (15-37) 32 U/L (15-37) Alanine Aminotransferase (ALT/SGPT) 46 U/L (16-63) 52 U/L (16-63) Alkaline Phosphatase 91 U/L (46-116) 99 U/L (46-116) Total Protein 7.0 g/dL (6.4-8.2) 6.9 g/dL (6.4-8.2) Albumin 3.3 g/dL (3.4-5.0) 3.1 g/dL (3.4-5.0) Albumin/Globulin Ratio 0.9 (1.0-1.7) 0.8 (1.0-1.7) Troponin I Quantitative 0.134 ng/mL (0.000-0.055) Laboratory Tests Test 01/08/19 03:05 White Blood Count 4.0 x10^3/uL (4.0-11.0) Red Blood Count 4.32 x10^6/uL (4.30-5.70) Hemoglobin 13.4 g/dL (13.0-17.5) Hematocrit 40.0 % (39.0-53.0) Mean Corpuscular Volume 93 fL (79-100) Mean Corpuscular Hemoglobin 31 pg (25-35) Mean Corpuscular Hemoglobin Concent 34 g/dL (31-37) Red Cell Distribution Width 12.7 % (11.5-14.5) Platelet Count 194 x10^3/uL (140-400) Neutrophils (%) (Auto) 38 % (31-73) Lymphocytes (%) (Auto) 49 % (24-48) Monocytes (%) (Auto) 10 % (0-9) Eosinophils (%) (Auto) 3 % (0-3) Basophils (%) (Auto) 1 % (0-3) Neutrophils # (Auto) 1.5 x10^3uL (1.8-7.7) Lymphocytes # (Auto) 1.9 x10^3/uL (1.0-4.8) Monocytes # (Auto) 0.4 x10^3/uL (0.0-1.1) Eosinophils # (Auto) 0.1 x10^3/uL (0.0-0.7) Basophils # (Auto) 0.0 x10^3/uL (0.0-0.2) Sodium Level 138 mmol/L (136-145) Potassium Level 3.7 mmol/L (3.5-5.1) Chloride Level 102 mmol/L (98-107) Carbon Dioxide Level 29 mmol/L (21-32) Anion Gap 7 (6-14) Blood Urea Nitrogen 8 mg/dL (8-26) Creatinine 1.1 mg/dL (0.7-1.3) Estimated GFR (Cockcroft-Gault) 82.9 BUN/Creatinine Ratio 7 (6-20) Glucose Level 137 mg/dL (70-99) Calcium Level 8.9 mg/dL (8.5-10.1) Total Bilirubin 0.4 mg/dL (0.2-1.0) Aspartate Amino Transf (AST/SGOT) 32 U/L (15-37) Alanine Aminotransferase (ALT/SGPT) 52 U/L (16-63) Alkaline Phosphatase 99 U/L (46-116) Troponin I Quantitative 0.134 ng/mL (0.000-0.055) Total Protein 6.9 g/dL (6.4-8.2) Albumin 3.1 g/dL (3.4-5.0) Albumin/Globulin Ratio 0.8 (1.0-1.7) Brief Hospital Course Mr. Hazel is a 58 yo M w/ admitted for complains of chest pain. This is reproducible. Also he has disclosed that he has been using drugs but could not recall and he is restless in bed and could not carry out straight conversation but not in pain. Complaining he is being stabbed in his abdomen. He is alert Ox3. No noted falls or any recent injury. No SOA. Verbalized that he drinks ETOH a lot. His UDS was positive for cocaine. Seen by cardiology: Patient's non- STEMI is most probably type 2/demand ischemia and recommended Cardiovascular risk factor modification. he did have negative coronary angiography 1 month ago. Discharged with substance abuse education. Elevated troponin Chest pain after using cocaine and multiple other drugs according to the patient Abdominal pain as well as sore throat scratchy throat some chest wall pain worse with palpation Leg pain twitching and anxiety Cocaine positive - h/o Drug abuse BPH Hypertension Degenerative joint disease of the knees Depression and anxiety Hyperlipidemia GERD Psychiatric assessment team consultation HEART CATH 11/03/2018 FINDINGS 1. Hemodynamics: Left ventricular end-diastolic pressure of 5 mmHg. No pullback gradient across the aortic valve. 2. Left ventriculography: Normal left ventricle systolic function with ejection fraction estimated at 60%. No significant mitral regurgitation seen. 3. Coronary angiography: a. The left main coronary artery arose from the left sinus of Valsalva, gave rise to the left anterior descending and left circumflex arteries and did not show any significant stenosis. b. The left anterior descending artery did not show any significant stenosis. c. The left circumflex artery did not show any significant stenosis. d. The right coronary artery was a large and dominant vessel arising from the right sinus of Valsalva that did not show any significant stenosis. Conclusion 1. No significant coronary artery disease 2. Normal left ventricular systolic function with ejection fraction estimated at 60%. Greater than 30 minutes spent on discharge. Discharge Information Condition at Discharge: Improved Follow Up: Weeks (1) Disposition/Orders: D/C to Home Scheduled Allopurinol (Allopurinol) 100 Mg Tablet, 1 TAB PO DAILY for gout, #30 Ref 5 (Reported) Entered as Reported by: MACIE PERES on 01/05/19217 Last Taken: Unknown Dose on Unknown Date & Time Last Action: Continued on 01/05/191131 by REILLY UREAÑ Amlodipine Besylate (Amlodipine Besylate) 5 Mg Tablet, 5 MG PO DAILY for bp, (Reported) Entered as Reported by: MACIE PERES on 01/05/19217 Last Taken: Unknown Dose on Unknown Date & Time Last Action: Continued on 01/05/191131 by REILLY UREÑA Amoxicillin/Potassium Clav (Augmentin 875-125 Tablet) 1 Each Tablet, 1 TAB PO BID, #14 Prescribed by: HELGA SOTO MD on 01/04/192145 Last Taken: Unknown Dose on Unknown Date & Time Last Action: Continued on 01/05/191131 by REILLY UREÑA Atorvastatin Calcium (Atorvastatin Calcium) 20 Mg Tablet, 1 TAB PO DAILY for cholesterol, #30 Ref 5 (Reported) Entered as Reported by: MACIE PERES on 01/05/19217 Last Taken: Unknown Dose on Unknown Date & Time Last Action: Continued on 01/05/191131 by REILLY UREÑA Diclofenac Sodium (Voltaren) 100 Gm Gel..gram., 1 GM TP QID for Right knee os teoarthritis for 30 Days, #100 Ref 2 Prescribed by: KATY WATTS MD on 11/04/181426 Last Action: Continued on 01/05/191131 by REILLY UREÑA Duloxetine Hcl (Cymbalta) 60 Mg Capsule.dr, 1 CAP PO DAILY for depression, #90 Ref 3 (Reported) Entered as Reported by: MACIE PERES on 01/05/19217 Last Taken: Unknown Dose on Unknown Date & Time Last Action: Converted on 01/05/191131 by REILLY UREÑA Gabapentin (Gabapentin ) 300 Mg Capsule, 300 MG PO TID for NEUROGENIC PAIN, (Reported) Entered as Reported by: MACIE PERES on 01/05/19217 Last Taken: Unknown Dose on Unknown Date & Time Last Action: Continued on 01/05/191131 by REILLY UREÑA Lisinopril (Lisinopril) 10 Mg Tablet, 1 TAB PO DAILY for bp, #30 Ref 5 (Reported) Entered as Reported by: MACIE PERES on 01/05/19217 Last Taken: Unknown Dose on Unknown Date & Time Last Action: New Order on 01/05/19217 by MACIE PERES Meloxicam (Mobic) 15 Mg Tablet, 1 TAB PO DAILY for OA of right knee for 30 Days, #30 Ref 2 Prescribed by: KATY WATTS MD on 11/04/181426 Last Taken: Unknown Dose on Unknown Date & Time Last Action: Converted on 01/05/191131 by REILLY MILLISON Pantoprazole Sodium (Protonix ) 40 Mg Tablet.dr, 40 MG PO DAILYAC for GERD, (Reported) Entered as Reported by: MACIE PERES on 01/05/19217 Last Taken: Unknown Dose on Unknown Date & Time Last Action: Continued on 01/05/191131 by REILLY UREÑA Quetiapine Fumarate (Quetiapine Fumarate) 50 Mg Tablet, 50 MG PO HS for sleep, (Reported) Entered as Reported by: MACIE PERES on 01/05/19217 Last Taken: Unknown Dose on Unknown Date & Time Last Action: Converted on 01/05/191131 by RIELLY UREÑA Tamsulosin Hcl (Flomax) 0.4 Mg Cap.er.24h, 0.8 MG PO HS for Urinary Retention, (Reported) Entered as Reported by: CYNDEE CEE on 11/03/18 1433 Last Taken: UNKNOWN on Unknown Date & Time Last Action: Continued on 01/05/191131 by KATY BOWERS MD Jan 08, 2019 11:44
--- NOTE | 2019-01-08 12:22 | NUR ---
Discharge: Pt requested IV out when notified that he would DC today (0830). Refused all morning medications except for mobic, antibiotic, and gabapentin. Complained of pain at 1140 and refused all oral medications, no IV medications available, and no IV access at any rate. Could not find shoes among belongings, could not remember if he was wearing them when he arrived to the hospital or not. Not able to locate in room, ED did not have them. Contacted his mother who is his primary contact, and she didn't know whether he came with shoes or not. Pt home meds returned to him, left with DC instructions, and street clothes. Taken to [address] per his instruction, by [facility] transportation.
== END 2019-01-08 12:28 | disposition home or self-care (01) | DRG 917 ==
LOC: ER 19:20 → 6 SOUTH 01-05 00:30
PROVIDERS: ADMIT Internal Medicine; ATTEND Internal Medicine
DX: T40.5X1A Poisoning by cocaine, accidental (unintentional), initial encounter (principal); I21.A1 Myocardial infarction type 2; M19.90 Unspecified osteoarthritis, unspecified site; E78.00 Pure hypercholesterolemia, unspecified; K21.9 Gastro-esophageal reflux disease without esophagitis; M10.9 Gout, unspecified; G89.29 Other chronic pain; F41.9 Anxiety disorder, unspecified; M17.0 Bilateral primary osteoarthritis of knee; N40.1 Benign prostatic hyperplasia with lower urinary tract symptoms; E78.5 Hyperlipidemia, unspecified; I10 Essential (primary) hypertension; F32.9 Major depressive disorder, single episode, unspecified; Z96.653 Presence of artificial knee joint, bilateral; F17.200 Nicotine dependence, unspecified, uncomplicated; F10.10 Alcohol abuse, uncomplicated; R33.8 Other retention of urine; F14.10 Cocaine abuse, uncomplicated; Z82.49 Family history of ischemic heart disease and other diseases of the circulatory system; Z90.49 Acquired absence of other specified parts of digestive tract; Z86.73 Personal history of transient ischemic attack (TIA), and cerebral infarction without residual deficits; Z79.899 Other long term (current) drug therapy; Z59.0 Homelessness
CPT/HCPCS: 36415; 71045; 80053; 80307; 80329; 81001; 84484; 85025; 93005; 93308; 96374; 96376; G0480; J1200; J2060; 99285-25

== ENCOUNTER 2020-03-23 14:48 | Emergency (ER) | payer MEDICARE, OTHER ==
[~2020-03-23] VITALS: Ht 182.9 cm; Wt 86.3 kg
[~2020-03-23 14:48] MED LIST changes: +ALLO100T PO; +AMLO5TAB10 PO; +AMOX1TAB61 PO; +ATOR20TA58 PO; -DICL100G18 TP; +DICL100G54 TP; +DULO60CA6 PO; +GABA300C18 PO; +LISI10TA2 PO; +PANT40TA77 PO; +QUET50TA PO
[2020-03-23 16:10] VITALS: BP 139/86
[2020-03-23] MEDS ORDERED: NAPROXEN 500 MG TABLET PO ONE (16:45)
[2020-03-23] MEDS ORDERED: traMADol 50 MG TABLET PO ONE (16:45)
[2020-03-23] MEDS ORDERED: NAPR-695 PO (19:47)
--- NOTE | 2020-03-23 19:47 | PHYS DOC ---
Past Medical History Past Medical History: Arthritis, CVA, GERD, High Cholesterol, Heart Disease Additional Past Medical Histor: GOUT, ALLERGIES, ENLARGED PROSTATE Past Surgical History: Appendectomy Additional Past Surgical Histo: L ANKLE SX Smoking Status: Unknown if ever smoked Alcohol Use: Heavy Drug Use: Cocaine General Adult EDM: Chief Complaint: KNEE INJURY HPI: HPI: Patient is a 60 year old AA male who presents to the emergency department with complaints of bilateral knee pain and right hip pain is gotten worse after a fall that happened 4 days ago. He reports a history of having bad knees and states that he was supposed to have both of his knees replaced but never went to have the surgery. He denies any numbness, tingling, or weakness of his lower extremities. The patient states that he usually takes naproxen and tramadol but he is out of his medications. He reports increased pain in both of his knees and his right hip with weightbearing. He currently rates the pain a 10 out of 10 on the pain scale, he denies any alleviating factors, the pain is worse with weightbearing and movement. Review of Systems: Review of Systems: Constitutional: Denies fever or chills. [] Musculoskeletal: Denies back pain; see HPI Integument: Denies rash. [] Neurologic: Denies focal weakness or sensory changes. [] Complete ROS is negative unless otherwise stated in the HPI. Heart Score: Risk Factors: Risk Factors: DM, Current or recent (<one month) smoker, HTN, HLP, family history of CAD, obesity. Risk Scores: Score 0 - 3: 2.5% MACE over next 6 weeks - Discharge Home Score 4 - 6: 20.3% MACE over next 6 weeks - Admit for Clinical Observation Score 7 - 10: 72.7% MACE over next 6 weeks - Early Invasive Strategies Current Medications: Current Medications Medications (Trade) Dose Ordered Sig/[facility] Start Time Stop Time Status Last Admin Dose Admin Naproxen (Naprosyn) 500 mg 1X ONCE 03/23/20 16:45 03/23/20 16:48 DC 03/23/20 17:04 500 MG Tramadol HCl (Ultram) 50 mg 1X ONCE 03/23/20 16:45 03/23/20 16:48 DC 03/23/20 17:04 50 MG Allergies: Allergies: Allergies Coded Allergies Type Severity Reaction Last Updated Verified No Known Drug Allergies 09/28/18 No Physical Exam: PE: Constitutional: Well developed, well nourished, no acute distress, unkept appearance HENT: Normocephalic, atraumatic, bilateral external ears normal, nose normal. [] Eyes: PERRLA, EOMI, conjunctiva normal, no discharge. [] Neck: Normal range of motion, no stridor. [] Cardiovascular:Heart rate regular rhythm Lungs & Thorax: Respirations even and unlabored, no retractions, no respiratory distress Skin: Warm, dry, no erythema, no rash. [] Extremities: Diffuse pain with palpation of bilateral knees and lateral right hip, no obvious shortening or rotation of the right lower extremity, no crepitus of either knee or the right hip, no cyanosis, ROM intact, no edema or obvious deformity. [] Neurologic: Alert and oriented X 3, no focal deficits noted. [] Psychologic: Affect normal, judgement normal, mood normal. [] Current Patient Data: Vital Signs: Vital Signs Date Time Temp Pulse Resp B/P (MAP) Pulse Ox O2 Delivery O2 Flow Rate FiO2 03/23/20 17:04 22 98 03/23/20 16:10 98.6 83 139/86 (103) Room Air 98.6 EKG: EKG: [] Radiology/Procedures: Radiology/Procedures: PROCEDURE: KNEE BILAT 3V KNEE BILAT 3V DATE: 03/23/2020 4:43 PM INDICATION: pain after fall 4 days ago / Spl. Instructions: / History: COMPARISON: None. FINDINGS: Right: No acute fracture. Severe lateral compartment degenerative changes. Moderate medial and patellofemoral compartment degenerative changes. Small knee joint effusion. Left: No acute fracture. Severe medial and patellofemoral compartment degenerative changes. Moderate lateral compartment degenerative changes. Small knee joint effusion. IMPRESSION: 1. No acute fracture. 2. Advanced degenerative changes of the knees.[] PROCEDURE: HIP RIGHT 2V WITH PELVIS HIP RIGHT 2V WITH PELVIS DATE: 03/23/2020 12:00 AM INDICATION: Reason: R hip pain after fall 4 days ago / Spl. Instructions: / History: COMPARISON: None. FINDINGS: Bones: There is no evidence of acute fracture or dislocation. Joints: The joint spaces are normal. Miscellaneous: None. IMPRESSION: No evidence of acute fracture. Electronically signed by: Marcell Lozano MD (03/23/2020 8:43 PM) [facility] Course & Med Decision Making: Course & Med Decision Making Pertinent Labs and Imaging studies reviewed. (See chart for details) [] Phyllis Disclaimer: Phyllis Disclaimer: This electronic medical record was generated, in whole or in part, using a voice recognition dictation system. Departure Departure Impression: Primary Impression: Chronic pain of both knees Additional Impression: Right hip pain Disposition: HOME, SELF-CARE Condition: STABLE Referrals: АННА STEWART MD Patient Instructions: Hip Pain, Knee Pain, [id number] Additional Instructions: Fill prescription and use as directed. Apply heat or ice to sore areas as needed for comfort. Follow up with Dr. Stewart this week. Return to the ER if symptoms worsen. Scripts Naproxen (NAPROXEN) 375 Mg Tablet 1 TAB PO BID for 10 Days, #20 TAB 0 Refills Prov: TOMMIE NICHOLS APRN 03/23/20 Justicifation of Admission Dx: Justifications for Admission: Justification of Admission Dx: N/A TOMMIE NICHOLS APRN Mar 23, 2020 19:47
--- NOTE | 2020-03-23 20:46 | RAD ---
KNEE BILAT 3V DATE: 03/23/2020 4:43 PM INDICATION: pain after fall 4 days ago / Spl. Instructions: / History: COMPARISON: None. FINDINGS: Right: No acute fracture. Severe lateral compartment degenerative changes. Moderate medial and patellofemoral compartment degenerative changes. Small knee joint effusion. Left: No acute fracture. Severe medial and patellofemoral compartment degenerative changes. Moderate lateral compartment degenerative changes. Small knee joint effusion. IMPRESSION: 1. No acute fracture. 2. Advanced degenerative changes of the knees. Electronically signed by: Marcell Lozano MD (03/23/2020 8:43 PM) GER[facility]
--- NOTE | 2020-03-23 20:46 | RAD ---
HIP RIGHT 2V WITH PELVIS DATE: 03/23/2020 12:00 AM INDICATION: Reason: R hip pain after fall 4 days ago / Spl. Instructions: / History: COMPARISON: None. FINDINGS: Bones: There is no evidence of acute fracture or dislocation. Joints: The joint spaces are normal. Miscellaneous: None. IMPRESSION: No evidence of acute fracture. Electronically signed by: Marcell Lozano MD (03/23/2020 8:43 PM) [facility]
== END 2020-03-23 20:00 | disposition home or self-care (01) ==
LOC: ER 14:48
DX: G89.29 Other chronic pain (principal); M25.551 Pain in right hip; M25.562 Pain in left knee; M19.90 Unspecified osteoarthritis, unspecified site; K21.9 Gastro-esophageal reflux disease without esophagitis; E78.00 Pure hypercholesterolemia, unspecified; I51.9 Heart disease, unspecified; Z90.89 Acquired absence of other organs; Z98.890 Other specified postprocedural states; Z86.73 Personal history of transient ischemic attack (TIA), and cerebral infarction without residual deficits
CPT/HCPCS: 73502; 73562; 99284

== ENCOUNTER 2020-12-30 12:40 | Emergency (ER) | payer OTHER, MEDICAID ==
[~2020-12-30] VITALS: Ht 180.3 cm; Wt 81.8 kg
[~2020-12-30 12:40] MED LIST changes: +AMLO-186 PO; -AMLO5TAB10 PO; +LISI10TA16 PO; -LISI10TA2 PO; +NAPR-695 PO
[2020-12-30] MEDS ORDERED: ACETAMINOPHEN 325 MG TABLET. PO ONE (13:00)
--- NOTE | 2020-12-30 13:25 | RAD ---
EXAM: Right shoulder, 2 views; right humerus, 2 views HISTORY: Pain. COMPARISON: None. FINDINGS: 2 views of the right shoulder and right humerus are obtained. There is no acute fracture, d islocation or subluxation. There is mild acromioclavicular joint osteoarthritis. IMPRESSION: No acute osseous finding. Electronically signed by: Birdie Monroe MD (12/30/2020 1:22 PM) [id number]
[2020-12-30] MEDS ORDERED: LIDO1ADH78 TP (13:40)
--- NOTE | 2020-12-30 13:41 | PHYS DOC ---
Past Medical History Past Medical History: Arthritis, CVA, GERD, High Cholesterol, Heart Disease Additional Past Medical Histor: GOUT, ALLERGIES, ENLARGED PROSTATE Past Surgical History: Appendectomy Additional Past Surgical Histo: L ANKLE SX Smoking Status: Never Smoker Alcohol Use: Heavy Additional Information: DAILY ALCOHOL 3-4 CANS OF BEER, SOMETIMES HALF-PINT Drug Use: Cocaine General Adult EDM: Chief Complaint: SHOULDER INJURY HPI: HPI: 60 yo AA M who denies any significant past medical history presents the ED brought in by EMS with complaints of right shoulder pain and right humerus pain that started yesterday after patient fell from standing. Patient denies any loss of consciousness or head injury. Is not on any anticoagulants. Review of Systems: Review of Systems: Constitutional: Denies fever or chills. [] Eyes: Denies change in visual acuity. [] HENT: Denies nasal congestion or sore throat. [] Respiratory: Denies cough or shortness of breath. [] Cardiovascular: Denies chest pain or edema. [] GI: Denies nausea, vomiting, : Denies urinary or bowel incontinence Musculoskeletal: Denies midline back pain or saddle anesthesia Integument: Denies rash or diaphoresis Neurologic: Deniesfocal weakness or sensory changes. [] Endocrine: Denies polyuria or polydipsia. [] Lymphatic: Denies swollen lymphatic glands. [] Psychiatric: Denies depression or anxiety. [] Heart Score: C/O Chest Pain: No Risk Factors: Risk Factors: DM, Current or recent (<one month) smoker, HTN, HLP, family history of CAD, obesity. Risk Scores: Score 0 - 3: 2.5% MACE over next 6 weeks - Discharge Home Score 4 - 6: 20.3% MACE over next 6 weeks - Admit for Clinical Observation Score 7 - 10: 72.7% MACE over next 6 weeks - Early Invasive Strategies Current Medications: Current Medications Medications (Trade) Dose Ordered Sig/[facility] Start Time Stop Time Status Last Admin Dose Admin Acetaminophen (Tylenol) 650 mg 1X ONCE 12/30/20 13:00 12/30/20 13:01 DC 12/30/20 13:01 650 MG Allergies: Allergies: Allergies Coded Allergies Type Severity Reaction Last Updated Verified No Known Drug Allergies 09/28/18 No Physical Exam: PE: Constitutional: Well developed, well nourished, no acute distress, non-toxic appearance. HENT: Normocephalic, atraumatic, Eyes: EOMI, conjunctiva normal, no discharge. Neck: Normal range of motion, supple, no midline neck pain or step-offs Cardiovascular: S1/2 present, regular rhythm Lungs & Thorax: Speaking in full sentences, bilateral equal chest rise, no t achypnea or increased work of breathing Skin: Warm, dry, Back: No midline step offs or tenderness, no CVA tenderness. [] Extremities: no cyanosis, ttp right anterior shoulder, equal radial pulses, cap refill less than 1 second, able to flex and extend the right elbow and wrist, no obvious deformity, prominent right acromion Neurologic: Alert and oriented X 3, normal motor function, normal sensory function, no focal deficits noted. [] Psychologic: Affect normal, judgement normal, mood normal. [] Current Patient Data: Vital Signs: Vital Signs Date Time Temp Pulse Resp B/P (MAP) Pulse Ox O2 Delivery O2 Flow Rate FiO2 12/30/20 12:41 98.9 61 22 141/95 (110) 98 Room Air 98.9 EKG: EKG: [] Radiology/Procedures: Radiology/Procedures: IMAGING REPORT Signed PATIENT: JONEL GUAJARDO EACCOUNT: [id number] : 1960 LOCATION: ER AGE: 60 SEX: M EXAM STATUS: REG ER ORD. PHYSICIAN: BEBO KNOWLES DO REASON: right shoulder pain, unable to external rotate PROCEDURE: SHOULDER 2+V RIGHT EXAM: Right shoulder, 2 views; right humerus, 2 views HISTORY: Pain. COMPARISON: None. FINDINGS: 2 views of the right shoulder and right humerus are obtained. There is no acute fracture, dislocation or subluxation. There is mild acromioclavicular joint osteoarthritis. IMPRESSION: No acute osseous finding. Electronically signed by: Birdie Monroe MD (12/30/2020 1:22 PM) [id number] DICTATED and SIGNED BY: BIRDIE MONROE MD DATE: 12/30/20 [id number] 0 Course & Med Decision Making: Course & Med Decision Making Pertinent Labs and Imaging studies reviewed. (See chart for details) Concern for right shoulder pain status post unwitnessed fall with no signs of e xternal trauma or deformity. X-ray imaging negative for obvious fracture. Will recommend conservative management. Will discharge home with strict ED return precautions were given for neurologic deficits, severe pain, repeat injury or deformity. Encouraged urgent outpatient follow-up with PMD and Ortho. Life- threatening processes were considered but are low suspicion at this time, given history, physical exam and ED workup. Pt was educated on all prescription medications and adverse effects. All patient's questions were answered and pt was stable at time of discharge. Life/limb-threatening differential includes but is not limited to, avascular necrosis, septic arthritis, malignancy, compartment syndrome, fracture/ligamentous injury/overuse, decompression sickness, seronegative spondyloarthropathies, trauma including dislocation/fracture, Lyme disease, lupus, arthritis differentials, gout/pseudogout or decompression sickness. I spoken with the patient and her caregivers. I explained the patient's condit ion, diagnoses and treatment plan based on the information available to me at this time. I have answered the patient and her caregiver's questions and addressed any concerns. The patient and her caregivers have a good understanding of patient's diagnosis, condition and treatment plan as can be expected at this point. Vital signs have been stable. Patient's condition is stable and appropriate for discharge from the emergency department. Patient will pursue further outpatient evaluation with primary care physician or other designated or consulting physician as outlined in the discharge instructions. The patient and/or caregivers are agreeable to this plan of care and follow-up instructions have been explained in detail. The patient and/or caregivers have received these instructions in written form and have expressed an understanding of the discharge instructions. The patient and/or caregivers are aware that any significant change of condition or worsening of symptoms should prompt immediate return to this or the closest emergency department or call to 911. Phyllis Disclaimer: Phyllis Disclaimer: This electronic medical record was generated, in whole or in part, using a voice recognition dictation system. Departure Departure Impression: Primary Impression: Right shoulder pain Disposition: HOME / SELF CARE / HOMELESS Condition: STABLE Referrals: NO PCP (PCP) Follow-up with your primary care physician in 24 to 48 hours OR FOLLOW UP WITH FAMILY MEDICINE: [address], [address] [place] [address] Patient Instructions: RICE - Routine Care for Injuries, Shoulder Pain Additional Instructions: FOLLOW UP WITH ORTHOPEDICS: FOR DEFINITIVE MANAGEMENT within 7 days Orthopaedic Sports Medicine Orthopaedic Surgery [facility] [address] [place], [address] [place] [address] OR [facility] [address] [place] [address] EMERGENCY DEPARTMENT GENERAL DISCHARGE INSTRUCTIONS Thank you for coming to [facility] Emergency Department (ED) today and trusting us with you care. We trust that you had a positive experience in our Emergency Department. If you wish to speak to the department management, you may call the Director at [phone]. YOUR FOLLOW UP INSTRUCTIONS ARE FOLLOWS: 1. Do you have a private Doctor? If you do not have a private doctor, please ask for a resource list of physicians or clinics that may be able to assist you with follow up care. 2. The Emergency Physicain has interpreted your x-rays. The X-Ray specialist will also review them. If there is a change in the findings, you will be notified in 48 hours when at all possible. 3. A lab test or culture has been done, your results will be reviewed and you will be notified if you need a change in treatment. ADDITIONAL INSTRUCTIONS AND INFORMATION: 1. Your care today has been supervised by a physician who is specially trained in emergency care. Many problems require more than one evaluation for a complete diagnosis and treatment. We recommend that you schedule your follow up appointment as recommended to ensure complete treatment of you illness or injury. If you are unable to obtain follow up care and continue to have a problem, or if your condition worsens, we recommend that you return to the ED. 2. We are not able to safely determine your condition over the phone nor are we able to give sound medical advice over the phone. For these safety reasons, if you call for medical advice we will ask you to come to the ED for further evaluation. 3. If you have any questions regarding these discharge instructions please call the ED at [phone]. SAFETY INFORMATION: In the interest of safety, wellness, and injury prevention; we encourage you to wear your sealbelt, if you smoke; quite smoking, and we encourage family to use a protective helmet for bicycling and other sporting events that present an increased risk for head injury. IF YOUR SYMPTOMS WORSEN OR NEW SYMPTOMS DEVELOP, OR YOU HAVE CONCERNS ABOUT YOUR CONDITION; OR IF YOUR CONDITION WORSENS WHILE YOU ARE WAITING FOR YOUR FOLLOW UP APPOINTMENT; EITHER CONTACT YOUR PRIMARY CARE DOCTOR, THE PHYSICIAN WHOSE NAME AND NUMBER YOU WERE GIVEN, OR RETURN TO THE ED IMMEDIATELY. Scripts Lidocaine (Lido Aiden) 1 Each Adh..patch 1 EACH TP DAILY for 5 Days, #5 PATCH Apply 1 patch for 12 hours, remove for another 12 hours. May repeat, 1 patch per day as instructed above. Prov: BEBO KNOWLES DO 12/30/20 BEBO KNOWLES DO Dec 30, 2020 13:40
[2020-12-30 14:45] VITALS: BP 141/95
== END 2020-12-30 14:54 | disposition home or self-care (01) ==
LOC: ER 12:40
DX: M25.511 Pain in right shoulder (principal); G89.11 Acute pain due to trauma; K21.9 Gastro-esophageal reflux disease without esophagitis; E78.00 Pure hypercholesterolemia, unspecified; M10.9 Gout, unspecified; Z86.73 Personal history of transient ischemic attack (TIA), and cerebral infarction without residual deficits; Z86.79 Personal history of other diseases of the circulatory system; F10.20 Alcohol dependence, uncomplicated; Y90.9 Presence of alcohol in blood, level not specified; W18.39XA Other fall on same level, initial encounter; Y93.89 Activity, other specified; Y92.89 Other specified places as the place of occurrence of the external cause; Y99.8 Other external cause status
CPT/HCPCS: 29240; 73030; 73060; 99284

== ENCOUNTER 2021-09-06 02:30 | Emergency (ER) | payer OTHER, MEDICAID ==
[~2021-09-06] VITALS: Ht 185.4 cm; Wt 86.3 kg
[~2021-09-06 02:30] MED LIST changes: -DULO60CA6 PO; +DULO60CA7 PO; +LIDO1ADH78 TP; -QUET50TA PO; +QUET50TA3 PO
[2021-09-06 03:00] VITALS: BP 141/89
--- NOTE | 2021-09-06 03:08 | PHYS DOC ---
Past Medical History Past Medical History: Arthritis, CVA, GERD, High Cholesterol, Heart Disease Additional Past Medical Histor: GOUT, ALLERGIES, ENLARGED PROSTATE Past Surgical History: Appendectomy Additional Past Surgical Histo: L ANKLE SX Smoking Status: Never Smoker Alcohol Use: Heavy Drug Use: Cocaine General Adult EDM: Chief Complaint: MEDICAL CLEARANCE HPI: HPI: Patient is a 61 year old male found asleep in a stolen car. Patient in custody of police. Under custody of police patient had a multitude of complaints. Patient was transported to ER for medical clearance. Patient admits to me he is a daily drinker. Patient complains of right knee pain. PD advised patient ambulated and was able to bear weight on leg. No deformities noted of leg. No history of trauma or fall. Patient without any emergent life threatening conditions. Patient medically cleared for germán. Review of Systems: Review of Systems: Constitutional: Denies fever or chills. [] Eyes: Denies change in visual acuity. [] HENT: Denies nasal congestion or sore throat. [] Respiratory: Denies cough or shortness of breath. [] Cardiovascular: Denies chest pain or edema. [] GI: Denies abdominal pain, nausea, vomiting, bloody stools or diarrhea. [] : Denies dysuria. [] Musculoskeletal: Denies back pain or joint pain. [positive leg pain] Integument: Denies rash. [] Neurologic: Denies headache, focal weakness or sensory changes. [] Endocrine: Denies polyuria or polydipsia. [] Lymphatic: Denies swollen glands. [] Psychiatric: Denies depression or anxiety. [] Heart Score: C/O Chest Pain: N/A Risk Factors: Risk Factors: DM, Current or recent (<one month) smoker, HTN, HLP, family history of CAD, obesity. Risk Scores: Score 0 - 3: 2.5% MACE over next 6 weeks - Discharge Home Score 4 - 6: 20.3% MACE over next 6 weeks - Admit for Clinical Observation Score 7 - 10: 72.7% MACE over next 6 weeks - Early Invasive Strategies Allergies: Allergies: Allergies Coded Allergies Type Severity Reaction Last Updated Verified No Known Drug Allergies 09/28/18 No Physical Exam: PE: Constitutional: Well developed, well nourished, no acute distress, non-toxic appearance. [] HENT: Normocephalic, atraumatic, bilateral external ears normal, oropharynx moist, no oral exudates, nose normal. [] Eyes: PERRLA, EOMI, conjunctiva normal, no discharge. [] Neck: Normal range of motion, no tenderness, supple, no stridor. [] Cardiovascular:Heart rate regular rhythm, no murmur [] Lungs & Thorax: Bilateral breath sounds clear to auscultation [] Abdomen: Bowel sounds normal, soft, no tenderness, no masses, no pulsatile masses. [] Skin: Warm, dry, no erythema, no rash. [] Back: No tenderness, no CVA tenderness. [] Extremities: No tenderness, no cyanosis, no clubbing, ROM intact, no edema. [] Neurologic: Alert and oriented X 3, normal motor function, normal sensory function, no focal deficits noted. [] Psychologic: Affect normal, judgement normal, mood normal. [] EKG: EKG: [] Radiology/Procedures: Radiology/Procedures: [] Course & Med Decision Making: Course & Med Decision Making Pertinent Labs and Imaging studies reviewed. (See chart for details) [] Dragon Disclaimer: Dragon Disclaimer: This electronic medical record was generated, in whole or in part, using a voice recognition dictation system. Departure Departure Impression: Primary Impression: Medical clearance for incarceration Disposition: 01 HOME / SELF CARE / HOMELESS Condition: STABLE Referrals: NO PCP (PCP) Patient Instructions: Normal Exam in Emergency Department Additional Instructions: Patient Medically Cleared for Incarceration. JOSELYN GUZMÁN DO Sep 06, 2021 03:08
== END 2021-09-06 03:30 | disposition home or self-care (01) ==
LOC: ER 02:30
DX: M25.561 Pain in right knee (principal); K21.9 Gastro-esophageal reflux disease without esophagitis; E78.00 Pure hypercholesterolemia, unspecified; M10.9 Gout, unspecified; Z86.73 Personal history of transient ischemic attack (TIA), and cerebral infarction without residual deficits; Z86.79 Personal history of other diseases of the circulatory system
CPT/HCPCS: 99283; 99284